=== PATIENT | female | born 1960 | race African-American/Black ===

== ENCOUNTER 2017-12-28 08:43 | Inpatient (IN) | payer BC ==
[2017-12-28] MEDS ORDERED: SODIUM CHLORIDE 1,000 ML IV STA ×2 (08:56→10:26)
--- NOTE | 2017-12-28 09:04 | PDOC ---
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 As per daughter her blood tests other than BS are normal. She reportedely became less responsive this a.m. EMS called ) - History of Present Illness Timing/Duration: unsure, getting worse Severity: severe Past History - Travel Traveled outside of the country in the last 30 days: No Close contact w/someone who was outside of country & ill: No - Past Medical History Allergies/Adverse Reactions: Allergies Allergy/AdvReac Type Severity Reaction Status Date / Time lactase [From Dairy Aid] Allergy Unknown Rash Verified 12/28/17 09:52 gluten Allergy SOB Verified 12/28/17 09:52 FRUIT Allergy Rash Uncoded 12/28/17 09:52 VEGATABLES Allergy Rash Uncoded 12/28/17 09:52 Home Medications: Ambulatory Orders Unobtainable 12/28/17 Anemia: No Asthma: No Cancer: No Cardiac Disorders: No CVA: No COPD: No CHF: No Dementia: No Diabetes: Yes (TYPE 1) Dialysis: No GI Disorders: No Disorders: No HTN: Yes Hypercholesterolemia: No Kidney Stones: No Liver Disease: No Seizures: No Thyroid Disease: No - Suicide/Smoking/Psychosocial Hx Smoking Status: No Smoking History: Never smoked Have you smoked in the past 12 months: No Number of Cigarettes Smoked Daily: 0 Cigars Per Day: 0 Hx Alcohol Use: No Drug/Substance Use Hx: No Substance Use Type: None Hx Substance Use Treatment: No Review of Systems - Review of Systems Able to Perform ROS?: No (patient too sick) Is the patient limited [place] Islander proficient: Yes Constitutional: Yes: Symptoms Reported, Malaise, Weakness Respiratory: Yes: SOB with Exertion ABD/GI: Yes: Symptoms Reported, Other (Soft , diffuesly tender, no rebound) Musculoskeletal: Yes: Muscle Weakness Integumentary: Yes: Other (reportedely local redness at Insulin shots sited ) Psychiatric: Yes: Depression Endocrine: Yes: See HPI Hematologic/Lymphatic: Yes: Easy Bruising All Other Systems: Reviewed and Negative *Physical Exam - Physical Exam General Appearance: Yes: Severe Distress, Thin HEENT: positive: ANDREY Neck: positive: Supple Respiratory/Chest: positive: Lungs Clear Cardiovascular: positive: Regular Rate, S1, S2, Tachycardia Gastrointestinal/Abdominal: positive: Tender, Soft Extremity: positive: Normal Capillary Refill Integumentary: positive: Normal Color Neurologic: positive: Respond to painful stimul Heart Score/ECG Review - Electrocardiogram EKG: Non specific repolarization disturbance - Age Age: 45-65 - Risk Factors Risk Factors Heart Score: Yes Hx Hypertension - ECG Intrepretation Rhythm: Regular Rhythm - ST and T Early Repolarization: No Non Specific ST-T Wave changes: No - ECG Impressions Tachycardia: Sinus Torsades nicholas Pointes: No WPW: No ED Treatment Course - LABORATORY CBC & Chemistry Diagram: 12/28/17 09:08 12/28/17 12:41 - Consult/PCP Case discussed with consulting physician: Itz Freeman Medical Decision Making - Critical Care Time Total Critical Care Time (minutes): 30 Critical Care Statement: The care of this patient involved high complexity decision making to prevent further life threatening deterioration of the patient 's condition and/or to evaluate & treat vital organ system(s) failure or risk of failure. - Medical Decision Making Patient seen immediately from arrival, assesed. tests ordered, iv started 12/28/17 09:[address] Freeman , accepted patient to ICU 12/28/17 11:23 12/28/17 15:21 Patient received iv fluids, iv Insulin drip, antibiotics Slowly her mental status inpton Transfered to ICU [facility] *DC/Admit/Observation/Transfer Diagnosis at time of Disposition: DKA (diabetic ketoacidoses) Qualifiers: Diabetes mellitus type: type 1 Diabetes mellitus complication detail: without coma Qualified Code(s): E10.10 - Type 1 diabetes mellitus with ketoacidosis without coma Sepsis Qualifiers: Sepsis type: sepsis due to unspecified organism Qualified Code(s): A41.9 - Sepsis, unspecified organism - Discharge Dispostion Condition at time of disposition: Critical Decision to Admit order: Yes - Referrals - Patient Instructions - Post Discharge Activity
[2017-12-28 09:27] LABS: HEMATOCRIT 47.1 % (32.4-45.2); HEMOGLOBIN 15.3 GM/dl (10.7-15.3); MCH 28.5 pg (25.7-33.7); MCHC 32.5 g/dl (32.0-36.0); MEAN PLT VOLUME 9.1 fl (7.5-11.1); PLATELET COUNT 207 K/MM3 (134-434); RBC 5.35 M/mm3 (3.60-5.2); RDW 13.8 % (11.6-15.6); WHITE BLOOD COUNT 20.6 K/mm3 (4.0-10.8)
[2017-12-28 09:32] LABS: URINE APPEARANCE Clear; URINE BILIRUBIN Negative (NEGATIVE); URINE GLUCOSE (UA) 2+ (NEGATIVE); URINE KETONE 4+ (NEGATIVE); URINE LEUK ESTERASE Negative (NEGATIVE); URINE NITRITE Negative (NEGATIVE); URINE PROTEIN 2+ (NEGATIVE); URINE UROBILINOGEN 0.2 (0.2-1.0)
[2017-12-28 09:33] LABS: URINE COLOR AMBER
[2017-12-28 09:36] LABS: ADD RBC MORPHOLOGY YES; ALBUMIN 4.2 g/dl (3.5-5.0); ALK PHOS 150 U/L (32-92); BILIRUBIN,TOTAL 0.6 mg/dl (0.2-1.0); BLOOD UREA NITROGEN 24 mg/dl (7-18); CHLORIDE 113 mmol/L (98-107); CREATININE 1.3 mg/dl (0.6-1.3); POTASSIUM 5.2 mmol/L (3.5-5.1); SGOT/AST 29 U/L (10-42); SGPT/ALT 23 U/L (10-40); SODIUM 148 mmol/L (136-145)
[2017-12-28 09:42] LABS: ANION GAP 31 (8-16); CO2 4 mmol/L (22-28)
[2017-12-28 09:44] LABS: GLUCOSE,RANDOM 566 mg/dl (74-106)
[2017-12-28] MEDS ORDERED: INSULIN REGULAR 100 UNITS in SODIUM CHLORIDE 99 ML IVPB SCH ×4 (10:30→18:45)
[2017-12-28] MEDS ORDERED: HEMOQUE TEST 1 EACH EACH ONE ×3 (10:55→15:29)
[2017-12-28 11:03] LABS: EPI CELLS FEW /HPF; URINE WBC 0-1 (0-5)
[2017-12-28 12:54] LABS: PLATELET ESTIMATE ADEQUATE
[2017-12-28 12:55] LABS: ALBUMIN 3.9 g/dl (3.5-5.0); ALK PHOS 147 U/L (32-92); BILIRUBIN,TOTAL 0.7 mg/dl (0.2-1.0); BLOOD UREA NITROGEN 25 mg/dl (7-18); CALCIUM 8.1 mg/dl (8.4-10.2); CHLORIDE 120 mmol/L (98-107); CREATININE 1.2 mg/dl (0.6-1.3); POTASSIUM 4.9 mmol/L (3.5-5.1); SGOT/AST 33 U/L (10-42); SGPT/ALT 25 U/L (10-40); SODIUM 151 mmol/L (136-145); TOT PROT 7.6 g/dl (6.4-8.3)
[2017-12-28 13:27] LABS: ANION GAP 28 (8-16); CO2 3 mmol/L (22-28); GLUCOSE,RANDOM 526 mg/dl (74-106)
[2017-12-28] MEDS ORDERED: SODIUM CHLORIDE 1,000 ML IV SCH (15:15)
[2017-12-28 16:43] LABS: ALBUMIN 3.6 g/dl (3.5-5.0); ALK PHOS 137 U/L (32-92); BILIRUBIN,TOTAL 0.9 mg/dl (0.2-1.0); BLOOD UREA NITROGEN 25 mg/dl (7-18); CALCIUM 8.4 mg/dl (8.4-10.2); CHLORIDE 124 mmol/L (98-107); CREATININE 1.2 mg/dl (0.6-1.3); POTASSIUM 4.1 mmol/L (3.5-5.1); SGOT/AST 34 U/L (10-42); SGPT/ALT 26 U/L (10-40); SODIUM 152 mmol/L (136-145); TOT PROT 7.1 g/dl (6.4-8.3)
[2017-12-28 16:47] LABS: ANION GAP 24 (8-16); CO2 4 mmol/L (22-28)
[2017-12-28 16:48] LABS: GLUCOSE,RANDOM 422 mg/dl (74-106)
[2017-12-28] MEDS ORDERED: PIPERACILLIN/TAZOB 3.375 GM 3.375 GM/50 ML BAG IVPB ONE (17:00)
--- NOTE | 2017-12-28 17:28 | HP ---
CHIEF COMPLAINT: AMS/metabolic encephalopathy secondary to sepsis and DKA PCP: not on staff HISTORY OF PRESENT ILLNESS: Patient is a transfer from [facility] for metabolic encephalopathy, severe sepsis and DKA. Patient is a 57 year old female with a significant past medical history of diabetes mellitus and DKA. She presents to [facility] from [facility] today via EMS for altered mental status, blood sugars >550s , leukocytosis @ 30.6 and severe sepsis. Patient's daughter states patient is compliant with her home insulin and takes it as prescribed. Family noted that patient became incoherent this morning and not answering questions appropriately with increased lethargy. Daughter states patient vomited twice this morning and c/o of nausea. Patient was taken to [facility] and transferred here for ICU admission. At [facility] she was incoherent and lethargic. Upon transfer to [place]patient mental status improved slightly and is able to answer some questions appropriately. Patient states that she has had no fevers, chills, no urinary symptoms, no coughing. She has been treated for a sinus congestion in the past, but none recently. In the ED she was found to be in DKA with a critically high glucose and anion gap of 31, + urine ketones and lactic acidosis >5. She was given IVF and started on an insulin drip. She is currently hypothermic and requires a yissel hugger (current temp is 92.3 rectal). Her blood and urine cultures are pending. Her UA is negative for leuk est, but has + protein, +ketones. She has given Levaquin in the [facility] ED and now will started on a broad spectrum antibiotics of Zosyn. ID has been consulted. ER course was notable for: (1) severe sepsis, WBC 30.6, lactic acid >5, hypothermia, tachycardia (2) DKA, insulin drip (3) Head CT negative, chest xray with clear lungs Recent Travel: denies PAST MEDICAL HISTORY: diabetes mellitus and DKA PAST SURGICAL HISTORY: Social History: Smoking: n/a Alcohol: n/a Drugs: n/a Family History: Allergies lactase [From Dairy Aid] Allergy (Unknown, Verified 12/28/17 09:52) Rash SOB, gluten Allergy (Verified 12/28/17 09:52) SOB FRUIT Allergy (Uncoded 12/28/17 09:52) Rash VEGATABLES Allergy (Uncoded 12/28/17 09:52) Rash SOB HOME MEDICATIONS: Home Medications Medication Instructions Recorded Unobtainable 12/28/17 PHYSICAL EXAMINATION Vital Signs - 24 hr 12/28/17 12/28/17 12/28/17 08:44 09:51 11:31 Temperature 98.3 F Pulse Rate 102 H Pulse Rate [ 101 H 105 H Apical] Respiratory 18 22 20 Rate Blood Pressure 132/60 Blood Pressure 155/68 141/70 [Right Arm] O2 Sat by Pulse 100 100 100 Oximetry (%) 12/28/17 12/28/17 12/28/17 12:07 12:42 13:34 Temperature Pulse Rate Pulse Rate [ 107 H 99 H 95 H Apical] Respiratory 26 H 22 22 Rate Blood Pressure Blood Pressure 134/64 124/54 115/61 [Right Arm] O2 Sat by Pulse 100 100 99 Oximetry (%) 12/28/17 12/28/17 12/28/17 16:13 16:25 16:52 Temperature 92.4 F L Pulse Rate Pulse Rate [ 97 H 93 H Apical] Respiratory 22 22 Rate Blood Pressure Blood Pressure 120/60 115/62 [Right Arm] O2 Sat by Pulse 97 97 Oximetry (%) GENERAL: lethargic HEAD: Normal with no signs of trauma. EYES: Pupils equal, round and reactive to light EARS, NOSE, THROAT: Ears normal, nares patent, oropharynx clear without exudates. Moist mucous membranes. NECK: Normal range of motion, supple without lymphadenopathy, JVD, or masses. LUNGS: Breath sounds equal, clear to auscultation bilaterally. No wheezes, and no crackles. No accessory muscle use. HEART: Regular rate and rhythm ABDOMEN: Soft, nontender, not distended, normoactive bowel sounds, no guarding, no rebound, no masses. No hepatomegaly or splenomegaly. MUSCULOSKELETAL: Normal range of motion at all joints. No bony deformities or tenderness. No CVA tenderness. UPPER EXTREMITIES: 2+ pulses, warm, well-perfused. No cyanosis. No clubbing. No peripheral edema. LOWER EXTREMITIES: 2+ pulses, warm, well-perfused. No calf tenderness. No peripheral edema. NEUROLOGICAL: garbled speech PSYCHIATRIC: lethargic, answers questions appropriately SKIN: Warm, dry, normal turgor, no rashes or lesions noted, normal capillary refill. Laboratory Results - last 24 hr 12/28/17 12/28/17 12/28/17 08:48 09:08 09:08 WBC 20.6 H RBC 5.35 H Hgb 15.3 Hct 47.1 H MCV 88.0 MCH 28.5 MCHC 32.5 RDW 13.8 Plt Count 207 MPV 9.1 Absolute Neuts (auto) 16.7 Neutrophils % No Result Required. Neutrophils % (Manual) 78.0 Band Neutrophils % 3.0 Lymphocytes % No Result Required. Lymphocytes % (Manual) 15.0 Monocytes % (Manual) 4 Platelet Estimate Adequate Sodium 148 H Potassium 5.2 H Chloride 113 H Carbon Dioxide 4 L D Anion Gap 31 H BUN 24 H Creatinine 1.3 Creat Clearance w eGFR 42.07 POC Glucometer > 400 Random Glucose 566 H* D Lactic Acid Calcium 9.0 Total Bilirubin 0.6 D AST 29 ALT 23 Alkaline Phosphatase 150 H Troponin I Total Protein 8.0 Albumin 4.2 Urine Color Urine Appearance Urine pH Ur Specific [place] Urine Protein Urine Glucose (UA) Urine Ketones Urine Blood Urine Nitrite Urine Bilirubin Urine Urobilinogen Ur Leukocyte Esterase Urine RBC Urine WBC Ur Epithelial Cells 12/28/17 12/28/17 12/28/17 09:08 09:08 09:08 WBC RBC Hgb Hct MCV MCH MCHC RDW Plt Count MPV Absolute Neuts (auto) Neutrophils % Neutrophils % (Manual) Band Neutrophils % Lymphocytes % Lymphocytes % (Manual) Monocytes % (Manual) Platelet Estimate Sodium Potassium Chloride Carbon Dioxide Anion Gap BUN Creatinine Creat Clearance w eGFR POC Glucometer Random Glucose Lactic Acid 5.4 H* Calcium Total Bilirubin AST ALT Alkaline Phosphatase Troponin I < 0.03 Total Protein Albumin Urine Color Ana Urine Appearance Clear Urine pH 5.0 Ur Specific [place] 1.025 Urine Protein 2+ H Urine Glucose (UA) 2+ H Urine Ketones 4+ H Urine Blood 2+ H Urine Nitrite Negative Urine Bilirubin Negative Urine Urobilinogen 0.2 Ur Leukocyte Esterase Negative Urine RBC 5-8 Urine WBC 0-1 Ur Epithelial Cells Few 12/28/17 12/28/17 12/28/17 10:59 12:09 12:09 WBC RBC Hgb Hct MCV MCH MCHC RDW Plt Count MPV Absolute Neuts (auto) Neutrophils % Neutrophils % (Manual) Band Neutrophils % Lymphocytes % Lymphocytes % (Manual) Monocytes % (Manual) Platelet Estimate Sodium Potassium Chloride Carbon Dioxide Anion Gap BUN Creatinine Creat Clearance w eGFR POC Glucometer > 400 Random Glucose 523 H* Lactic Acid 5.0 H* Calcium Total Bilirubin AST ALT Alkaline Phosphatase Troponin I Total Protein Albumin Urine Color Urine Appearance Urine pH Ur Specific [place] Urine Protein Urine Glucose (UA) Urine Ketones Urine Blood Urine Nitrite Urine Bilirubin Urine Urobilinogen Ur Leukocyte Esterase Urine RBC Urine WBC Ur Epithelial Cells 12/28/17 12/28/17 12/28/17 12:41 15:34 16:12 WBC RBC Hgb Hct MCV MCH MCHC RDW Plt Count MPV Absolute Neuts (auto) Neutrophils % Neutrophils % (Manual) Band Neutrophils % Lymphocytes % Lymphocytes % (Manual) Monocytes % (Manual) Platelet Estimate Sodium 151 H 152 H Potassium 4.9 4.1 Chloride 120 H 124 H Carbon Dioxide 3 L D 4 L D Anion Gap 28 H 24 H BUN 25 H 25 H Creatinine 1.2 1.2 Creat Clearance w eGFR 46.14 46.14 POC Glucometer > 400 Random Glucose 526 H* 422 H* Lactic Acid Calcium 8.1 L 8.4 Total Bilirubin 0.7 0.9 D AST 33 34 ALT 25 26 Alkaline Phosphatase 147 H 137 H Troponin I Total Protein 7.6 7.1 Albumin 3.9 3.6 Urine Color Urine Appearance Urine pH Ur Specific [place] Urine Protein Urine Glucose (UA) Urine Ketones Urine Blood Urine Nitrite Urine Bilirubin Urine Urobilinogen Ur Leukocyte Esterase Urine RBC Urine WBC Ur Epithelial Cells ASSESSMENT/PLAN: Patient is a 57 year old female with a significant past medical history of diabetes mellitus and DKA. She presents to [facility] from [facility] today via EMS for altered mental status, blood sugars >550s , leukocytosis @ 30.6 and severe sepsis. Patient's daughter states patient is compliant with her home insulin and takes it as prescribed. Family noted that patient became incoherent this morning and not answering questions appropriately with increased lethargy. Daughter states patient vomited twice this morning and c/o of nausea. Patient was taken to [facility] and transferred here for ICU admission. At [facility] she was incoherent and lethargic. Upon transfer to [facility],patient mental status improved slightly and is able to answer some questions appropriately. Patient states that she has had no fevers, chills, no urinary symptoms, no coughing. She has been treated for a sinus congestion in the past, but none recently. In the ED she was found to be in DKA with a critically high glucose and anion gap of 31, + urine ketones and lactic acidosis >5. She was given IVF and started on an insulin drip. She is currently hypothermic and requires a yissel hugger (current temp is 92.3 rectal). Her blood and urine cultures are pending. Her UA is negative for leuk est, but has + protein, +ketones. She has given Levaquin in the [facility] ED and now will started on a broad spectrum antibiotics of Zosyn. ID has been consulted. ID: Severe Sepsis, etiology unclear Blood and urine cultures pending. No obvious source of sepsis. WBC 30, lactic acid >5, hypothermia and tachycardia present. Given Levaquin in [facility]. Given Zosyn now per ID recommendations. Monitor vitals, currently on yissel hugger. Trend lactate q 4 hours until normal values. ID on board. Endocrine DKA Anion gap 31, +ketones, BGMs >500 with nausea/vomiting Given IVF, started on Insulin drip. IVF - 1/2 NS for now and add dextrose when FS is <250mg/dL. Serial BMPs, and aggressive repletion of Potassium. Transition to SQ when gap is closed and able to tolerate a PO diet Hmg a1c in a.m. Lipid panel in a.m. Neuro: Acute metabolic encephalopathy, likely secondary to severe sepsis and DKA On Zosyn, insulin drip. Head CT negative FEN 1/2 NS @ 100 monitor electrolytes, potassium repletion as needed NPO prophy: heparin full code Visit type - Emergency Visit Emergency Visit: Yes ED Registration Date: 12/28/17 Care time: The patient presented to the Emergency Department on the above date and was hospitalized for further evaluation of their emergent condition. - New Patient This patient is new to me today: Yes Date on this admission: 12/29/17 - Critical Care Critical Care patient: Yes Total Critical Care Time (in minutes): 60 Critical Care Statement: The care of this patient involved high complexity decision making to prevent further life threatening deterioration of the patient 's condition and/or to evaluate & treat vital organ system(s) failure or risk of failure. Hospitalist Screening - Colonoscopy Questionnaire Colonoscopy Questionnaire: Colonoscopy Questionnaire - Patient: 50 - 75 years old and never had a screening colonoscopy: Unknown History of colon or rectal polyps, or CA: Unknown History of IBD, Crohn's disease or UC: Unknown History of abdominal radiation therapy as a child: Unknown - Relative: 1 with colon or rectal CA, or polyps at age 60 or younger: Unknown Colon or rectal CA diagnosed at age 45 or younger: Unknown Multiple relatives with colon or rectal CA: Unknown - Outcome: Screening Result: Negative Screen
--- NOTE | 2017-12-28 18:10 | CON.ID ---
Consult Consult Specialty:: infectious Reason for Consultation:: sepsis,lactic acidosis - History of Present Illness History of Present Illness: 57 y/o woman w/ brittle IDDM who presents to the ED w/ AMS. As per patients daughter she was in her USOH until two days prior when she started w/ sinus congestion and some nausea. Daughter states that when she went to check on her this AM she was found to be extremely lethargic and incoherent. Daughter dialed 911 and patient was transported to [facility]. In ER she was found to have AMS, BGL >550s, leukocytosis @ 30.6, anion gap of 31, + urine ketones, and a lactic acidosis >5. She was given IVFs and started on an insulin drip. The pt denies any CP,PAREDES, SOB, abdominal pain , nausea or vomiting. the above history taken from the charts as the patient is confused and in now able to answer questions and confused patient received multiple boluses now in icu - History Source History Provided By: Medical Record Limitations to Obtaining History: Clinical Condition - Past Medical History Endocrine: Yes: Diabetes Mellitus - Alcohol/Substance Use Hx Alcohol Use: No - Smoking History Smoking history: Never smoked Have you smoked in the past 12 months: No Aproximately how many cigarettes per day: 0 Home Medications - Allergies Allergies/Adverse Reactions: Allergies Allergy/AdvReac Type Severity Reaction Status Date / Time lactase [From Dairy Aid] Allergy Unknown Rash Verified 12/28/17 09:52 gluten Allergy SOB Verified 12/28/17 09:52 FRUIT Allergy Rash Uncoded 12/28/17 09:52 VEGATABLES Allergy Rash Uncoded 12/28/17 09:52 - Home Medications Home Medications: Ambulatory Orders Unobtainable 12/28/17 Review of Systems Unable to obtain ROS, reason: unable Physical Exam Vital Signs: Vital Signs Temperature 92.2 F L 12/28/17 17:40 Pulse Rate 98 H 12/28/17 17:40 Respiratory Rate 20 12/28/17 17:40 Blood Pressure 118/66 12/28/17 17:40 O2 Sat by Pulse Oximetry (%) 97 12/28/17 16:52 Constitutional: Yes: Thin, Other Eyes: Yes: Conjunctiva Clear Cardiovascular: Yes: Regular Rate and Rhythm, Tachycardia Respiratory: Yes: Regular, Poor Air Entry, Rhonchi, Other (breathing through mouth) Gastrointestinal: Yes: Soft, Hypoactive Bowel Sounds Musculoskeletal: Yes: WNL Extremities: Yes: WNL Neurological: Yes: Confusion, Other Psychiatric: Yes: Other Labs: CBC, BMP 12/28/17 09:08 12/28/17 16:12 Imaging - Results Chest X-ray: Report Reviewed, Image Reviewed Cat Scan: Report Reviewed, Image Reviewed Assessment/Plan patient coming in with ams and dka currently in sepsis in icu and breathing through the mouth Problem List - Problems (1) DKA (diabetic ketoacidoses) (2) Sepsis 3 ams electrolyte abn lactic acidosis dehydration leukocytosis plan treatment of dka as per icu white tart patient on abx close watch on the patient hydration electrolyte mgmt monitor wbc rest as per the team await for all cx reports discussed with the family in great detail cc time 45 min
--- NOTE | 2017-12-28 18:24 | CONSULT ---
Consultation: REQUESTING PROVIDER: [facility] CONSULT REQUEST: We have been asked to medically evaluate this patient for DKA and need for ICU HISTORY OF PRESENT ILLNESS: 57 yo F with PMhx of brittle IDDM and DKA presents with one day history of AMS. As per patients daughter she was in her normal state of health until two days prior when she started with sinus congestion and some nausea. Daughter states that when she went to check on her this morning she was found to be extremely lethargic and incoherent. Her daughter called EMS and patient wqas transported to [facility] ER. In ER she was found to have altered mental status , blood sugars >550s, leukocytosis @ 30.6, anion gap of 31, + urine ketones and lactic acidosis >5.and severe sepsis. She was given IVF and started on an insulin drip. She has given Levaquin in the [facility] ED and now will started on a broad spectrum antibiotics of Zosyn. ID has been consulted. Denies CP,PAREDES, SOB, abdominal pain , nausea or vomiting. ER course was notable for: (1) severe sepsis, WBC 30.6, lactic acid >5, hypothermia, tachycardia (2) DKA, insulin drip (3) Head CT negative, chest xray with clear lungs Allergies:multiple food allergies. (severe) PMHx: IDDM and DKA PSx: none Social: never smoked, social ETOH, no drugs. Lives at home with daughter works and is completely independent. REVIEW OF SYSTEMS: CONSTITUTIONAL: generalized weakness, malaise, loss of appetite Absent: fever, chills, diaphoresis, , weight change HEENT: Absent: rhinorrhea, nasal congestion, throat pain, throat swelling, difficulty swallowing, mouth swelling, ear pain, eye pain, visual changes CARDIOVASCULAR: Absent: chest pain, syncope, palpitations, irregular heart rate, lightheadedness , peripheral edema RESPIRATORY: Absent: cough, shortness of breath, dyspnea with exertion, orthopnea, wheezing, stridor, hemoptysis GASTROINTESTINAL: Absent: abdominal pain, abdominal distension, nausea, vomiting, diarrhea, constipation, melena, hematochezia GENITOURINARY: Absent: dysuria, frequency, urgency, hesitancy, hematuria, flank pain, genital pain MUSCULOSKELETAL: Absent: myalgia, arthralgia, joint swelling, back pain, neck pain SKIN: Absent: rash, itching, pallor HEMATOLOGIC/IMMUNOLOGIC: Absent: easy bleeding, easy bruising, lymphadenopathy, frequent infections ENDOCRINE: Absent: unexplained weight gain, unexplained weight loss, heat intolerance, cold intolerance NEUROLOGIC: mental status changes Absent: headache, focal weakness or paresthesias, dizziness, unsteady gait, seizure, , bladder or bowel incontinence PSYCHIATRIC: Absent: anxiety, depression, suicidal or homicidal ideation, hallucinations. PHYSICAL EXAMINATION Vital Signs - 24 hr 12/28/17 12/28/17 12/28/17 08:44 09:51 11:31 Temperature 98.3 F Pulse Rate 102 H Pulse Rate [ 101 H 105 H Apical] Respiratory 18 22 20 Rate Blood Pressure 132/60 Blood Pressure 155/68 141/70 [Right Arm] O2 Sat by Pulse 100 100 100 Oximetry (%) 12/28/17 12/28/17 12/28/17 12:07 12:42 13:34 Temperature Pulse Rate Pulse Rate [ 107 H 99 H 95 H Apical] Respiratory 26 H 22 22 Rate Blood Pressure Blood Pressure 134/64 124/54 115/61 [Right Arm] O2 Sat by Pulse 100 100 99 Oximetry (%) 12/28/17 12/28/17 12/28/17 16:13 16:25 16:52 Temperature 92.4 F L Pulse Rate Pulse Rate [ 97 H 93 H Apical] Respiratory 22 22 Rate Blood Pressure Blood Pressure 120/60 115/62 [Right Arm] O2 Sat by Pulse 97 97 Oximetry (%) GENERAL: Lethargic but arousable HEAD: NC/AT EYES:PERRLA,EOMI EARS, NOSE, THROAT:Dry mucous membranes. NECK: no JVD or masses LUNGS:CTAB, NO wheezing or rales. HEART: RRR, NL S1S2 , no m/g/r ABDOMEN: Soft, NT/ND, NABS, no guarding, no rebound, no masses. No hepatomegaly or splenomegaly. MUSCULOSKELETAL: No CVA tenderness. LOWER EXTREMITIES: 2+ pulses, warm, well-perfused. No calf tenderness. No peripheral edema. NEUROLOGICAL: lethargic but follows simple commands. Laboratory Results - last 24 hr 12/28/17 12/28/17 12/28/17 08:48 09:08 09:08 WBC 20.6 H RBC 5.35 H Hgb 15.3 Hct 47.1 H MCV 88.0 MCH 28.5 MCHC 32.5 RDW 13.8 Plt Count 207 MPV 9.1 Absolute Neuts (auto) 16.7 Neutrophils % No Result Required. Neutrophils % (Manual) 78.0 Band Neutrophils % 3.0 Lymphocytes % No Result Required. Lymphocytes % (Manual) 15.0 Monocytes % (Manual) 4 Platelet Estimate Adequate Sodium 148 H Potassium 5.2 H Chloride 113 H Carbon Dioxide 4 L D Anion Gap 31 H BUN 24 H Creatinine 1.3 Creat Clearance w eGFR 42.07 POC Glucometer > 400 Random Glucose 566 H* D Lactic Acid Calcium 9.0 Total Bilirubin 0.6 D AST 29 ALT 23 Alkaline Phosphatase 150 H Troponin I Total Protein 8.0 Albumin 4.2 Urine Color Urine Appearance Urine pH Ur Specific [place] Urine Protein Urine Glucose (UA) Urine Ketones Urine Blood Urine Nitrite Urine Bilirubin Urine Urobilinogen Ur Leukocyte Esterase Urine RBC Urine WBC Ur Epithelial Cells 12/28/17 12/28/17 12/28/17 09:08 09:08 09:08 WBC RBC Hgb Hct MCV MCH MCHC RDW Plt Count MPV Absolute Neuts (auto) Neutrophils % Neutrophils % (Manual) Band Neutrophils % Lymphocytes % Lymphocytes % (Manual) Monocytes % (Manual) Platelet Estimate Sodium Potassium Chloride Carbon Dioxide Anion Gap BUN Creatinine Creat Clearance w eGFR POC Glucometer Random Glucose Lactic Acid 5.4 H* Calcium Total Bilirubin AST ALT Alkaline Phosphatase Troponin I < 0.03 Total Protein Albumin Urine Color Ana Urine Appearance Clear Urine pH 5.0 Ur Specific [place] 1.025 Urine Protein 2+ H Urine Glucose (UA) 2+ H Urine Ketones 4+ H Urine Blood 2+ H Urine Nitrite Negative Urine Bilirubin Negative Urine Urobilinogen 0.2 Ur Leukocyte Esterase Negative Urine RBC 5-8 Urine WBC 0-1 Ur Epithelial Cells Few 12/28/17 12/28/17 12/28/17 10:59 12:09 12:09 WBC RBC Hgb Hct MCV MCH MCHC RDW Plt Count MPV Absolute Neuts (auto) Neutrophils % Neutrophils % (Manual) Band Neutrophils % Lymphocytes % Lymphocytes % (Manual) Monocytes % (Manual) Platelet Estimate Sodium Potassium Chloride Carbon Dioxide Anion Gap BUN Creatinine Creat Clearance w eGFR POC Glucometer > 400 Random Glucose 523 H* Lactic Acid 5.0 H* Calcium Total Bilirubin AST ALT Alkaline Phosphatase Troponin I Total Protein Albumin Urine Color Urine Appearance Urine pH Ur Specific [place] Urine Protein Urine Glucose (UA) Urine Ketones Urine Blood Urine Nitrite Urine Bilirubin Urine Urobilinogen Ur Leukocyte Esterase Urine RBC Urine WBC Ur Epithelial Cells 12/28/17 12/28/17 12/28/17 12:41 15:34 16:12 WBC RBC Hgb Hct MCV MCH MCHC RDW Plt Count MPV Absolute Neuts (auto) Neutrophils % Neutrophils % (Manual) Band Neutrophils % Lymphocytes % Lymphocytes % (Manual) Monocytes % (Manual) Platelet Estimate Sodium 151 H 152 H Potassium 4.9 4.1 Chloride 120 H 124 H Carbon Dioxide 3 L D 4 L D Anion Gap 28 H 24 H BUN 25 H 25 H Creatinine 1.2 1.2 Creat Clearance w eGFR 46.14 46.14 POC Glucometer > 400 Random Glucose 526 H* 422 H* Lactic Acid Calcium 8.1 L 8.4 Total Bilirubin 0.7 0.9 D AST 33 34 ALT 25 26 Alkaline Phosphatase 147 H 137 H Troponin I Total Protein 7.6 7.1 Albumin 3.9 3.6 Urine Color Urine Appearance Urine pH Ur Specific [place] Urine Protein Urine Glucose (UA) Urine Ketones Urine Blood Urine Nitrite Urine Bilirubin Urine Urobilinogen Ur Leukocyte Esterase Urine RBC Urine WBC Ur Epithelial Cells Active Medications Generic Name Dose Route Start Last Admin Trade Name Freq PRN Reason Stop Dose Admin Insulin Human Regular 100 100 mls @ 6.35 mls/hr 12/28/17 11:15 12/28/17 11:12 units/ Sodium Chloride IVPB 0.1 units/kg/hr TITR LUCY 6.35 mls/hr Administration Protocol 0.1 UNITS/KG/HR Insulin Human Regular 100 100 mls @ 10 mls/hr 12/28/17 15:15 12/28/17 15:17 units/ Sodium Chloride IVPB 10 units/hr TITR LUCY 10 mls/hr Administration Protocol 10 UNITS/HR Sodium Chloride 1,000 mls @ 150 mls/hr 12/28/17 15:15 12/28/17 15:17 Normal Saline - IV 150 mls/hr [facility] Administration ASSESSMENT/PLAN: 57 yo F with PMhx of brittle IDDM and DKA presents with one day history of AMS admitted to ICU for DKA. Neuro: * Lethargic but arousable. * Neuro checks Qshift. * Pain control. CV: * BP and HR wnl * continuous cardiac monitoring. Pulm: * No respiratory distress. * Supplemental O2 PRN * maintain SpO2 >90% * Aspiration precautions. Endo: * DKA * Insulin drip until BG <200 then switch to SQ * IVF D5 1/2NS * On levamir 10 units at home * brittle diabetic -family states very sensitive to insulin. ID: * Severe sepsis with unknown source * CXR clear and head CT shows no acute bleed. * started on Zosyn * ID consult appreciated. FEN: * IVF 1/2 NS @100ml/hr * Na+=152, K+=4.1, bicarb 4L, AG 24 * NPO for now. When she can eat only give chicken, boiled eggs and avocado 2/2 severe food allergies. Dispo: We will continue to follow the patient ICU. Thank you for this consultative opportunity. Problem List - Problems (1) DKA (diabetic ketoacidoses) (2) Sepsis (3) DVT prophylaxis Visit type - Emergency Visit Emergency Visit: Yes ED Registration Date: 12/28/17 Care time: The patient presented to the Emergency Department on the above date and was hospitalized for further evaluation of their emergent condition. - New Patient This patient is new to me today: Yes Date on this admission: 12/28/17 - Critical Care Critical Care patient: Yes Total Critical Care Time (in minutes): 63 Critical Care Statement: The care of this patient involved high complexity decision making to prevent further life threatening deterioration of the patient 's condition and/or to evaluate & treat vital organ system(s) failure or risk of failure.
[2017-12-28] MEDS ORDERED: DEXTROSE 5%-WATER - 50 ML IVPB ONE (18:29)
[2017-12-28] MEDS ORDERED: PIPERACILLIN/TAZOBACTAM 3.375 GM VIAL IVPB ONE (18:29)
[2017-12-28] MEDS ORDERED: SODIUM CHLORIDE 0.45% 1,000 ML IV SCH (18:30)
[2017-12-28] MEDS ORDERED: PIPERACILLIN/TAZOB 3.375 GM 3.375 GM in DEXTROSE 5%-WATER - 50 ML IVPB ONE (18:30)
[2017-12-28 19:31] LABS: ALBUMIN 3.4 g/dl (3.4-5.0); BILIRUBIN,TOTAL 0.4 mg/dL (0.2-1.0); BLOOD UREA NITROGEN 28 mg/dL (7-18); CHLORIDE 128 mmol/L (98-107); CREATININE 1.2 mg/dL (0.55-1.02); POTASSIUM 3.9 mmol/L (3.5-5.1); SGOT/AST 34 U/L (15-37); SGPT/ALT 31 U/L (12-78); SODIUM 159 mmol/L (136-145); TOT PROT 7.5 g/dl (6.4-8.2)
[2017-12-28 19:32] LABS: ALK PHOS 154 U/L (45-117)
[2017-12-28 19:45] LABS: ANION GAP 26 (8-16); CO2 5 mmol/L (21-32)
[2017-12-28 19:46] LABS: GLUCOSE,RANDOM 324 mg/dL (74-106)
--- NOTE | 2017-12-28 20:54 | CONSULT ---
Consult Consult Specialty:: PULM/CCM Referred by:: Dr. Whittington Reason for Consultation:: DKA - History of Present Illness Chief Complaint: DKA History of Present Illness: Ms Storey is a 57 y/o woman w/ brittle IDDM who presents to the ED w/ AMS. As per patients daughter she was in her USOH until two days prior when she started w/ sinus congestion and some nausea. Daughter states that when she went to check on her this AM she was found to be extremely lethargic and incoherent. Daughter dialed 911 and patient was transported to [facility] ER. In ER she was found to have AMS, BGL >550s, leukocytosis @ 30.6, anion gap of 31, + urine ketones, and a lactic acidosis >5. She was given IVFs and started on an insulin drip. The pt denies any CP,PAREDES, SOB, abdominal pain , nausea or vomiting. 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, Seizure Cardio/Vascular: No: AFIB, HTN Pulmonary: No: Asthma, COPD ...: No Endocrine: Yes: Diabetes Mellitus - Alcohol/Substance Use Hx Alcohol Use: No - Smoking History Smoking history: Never smoked Have you smoked in the past 12 months: No Aproximately how many cigarettes per day: 0 Home Medications - Allergies Allergies/Adverse Reactions: Allergies Allergy/AdvReac Type Severity Reaction Status Date / Time lactase [From Dairy Aid] Allergy Unknown Rash Verified 12/28/17 09:52 gluten Allergy SOB Verified 12/28/17 09:52 FRUIT Allergy Rash Uncoded 12/28/17 09:52 VEGATABLES Allergy Rash Uncoded 12/28/17 09:52 - Home Medications Home Medications: Ambulatory Orders Unobtainable 12/28/17 Family Disease History - Family Disease History Family History: Unremarkable Review of Systems - Review of Systems Eyes: reports: No Symptoms HENT: reports: Ear Discharge, Toothache Neck: reports: No Symptoms Cardiovascular: reports: No Symptoms Respiratory: reports: No Symptoms Gastrointestinal: reports: No Symptoms, Nausea Genitourinary: reports: No Symptoms Breasts: reports: No Symptoms Reported Musculoskeletal: reports: No Symptoms Integumentary: reports: No Symptoms Neurological: reports: No Symptoms Endocrine: reports: No Symptoms Hematology/Lymphatic: reports: No Symptoms Psychiatric: reports: No Symptoms Physical Exam Vital Signs: Vital Signs Temperature 93 F L 12/28/17 19:25 Pulse Rate 98 H 12/28/17 19:25 Respiratory Rate 22 12/28/17 19:25 Blood Pressure 120/61 12/28/17 19:25 O2 Sat by Pulse Oximetry (%) 100 12/28/17 18:50 Intake & Output 12/26/17 12/27/17 12/28/17 12/29/17 23:59 23:59 23:59 23:59 Intake Total 2150 Output Total 1700 Balance 450 Weight 64.4 kg Constitutional: Yes: Well Nourished, No Distress, Calm Eyes: Yes: WNL, Conjunctiva Clear, EOM Intact HENT: Yes: WNL, Atraumatic, Normocephalic Neck: Yes: WNL, Supple, Trachea Midline Cardiovascular: Yes: WNL, Regular Rate and Rhythm Respiratory: Yes: WNL, CTA Bilaterally Gastrointestinal: Yes: WNL, Normal Bowel Sounds, Soft. No: Vomiting ...Rectal Exam: Yes: Deferred Renal/: Yes: WNL Breast(s): Yes: WNL Musculoskeletal: Yes: WNL Extremities: Yes: WNL Edema: No Peripheral Pulses WNL: Yes Integumentary: Yes: WNL Wound/Incision: Yes: Clean/Dry, Well Approximated Neurological: Yes: WNL, Alert, Oriented ...Motor Strength: WNL Psychiatric: Yes: WNL, Alert, Oriented Labs: CBC, BMP 12/28/17 09:08 12/28/17 18:45 Imaging - Results Chest X-ray: Image Reviewed (CXR: No acute pathology. No significant change since 12/25/2015.) Cat Scan: Image Reviewed ( NCHCT: Mild volume loss. No gross evidence of a focal intracranial lesion or hemorrhage.) EKG: Image Reviewed (12-LEAD EKG 12/28: S-Tach @ 100 w/o ect, bi-atrial enlargement, no ST or T-wave aberrations, QTc = 505ms, no acute process (My Read ).) Problem List - Problems (1) DKA (diabetic ketoacidoses) Code(s): E13.10 - OTH DIABETES MELLITUS WITH KETOACIDOSIS WITHOUT COMA Qualifiers: Diabetes mellitus type: type 1 Diabetes mellitus complication detail: without coma Qualified Code(s): E10.10 - Type 1 diabetes mellitus with ketoacidosis without coma Assessment/Plan ASSESSMENT: DKA PLAN: * NPO * Nebs * Supplemental O2 PRN * maintain SpO2 >90% * F/u Boucher Clxr * Zo * Aspiration precautions. * IS * Aggressive IVFs * FSs * Insulin gtt * Do NOT Turn off insulin gtt once Insulin gtt @ 1U/Hr start D5 1/2NS * F/u UOP * Trend BUN/Cr * Replete e-lytes prn * DVT ppx DGL, ACNP-BC [facility] ICU PULM/CCM Critical Care Time/MDM Note Total Critical Care Time: 38 Critical Care Statement: The care of this patient involved high complexity decision making to prevent further life threatening deterioration of the patient 's condition and/or to evaluate & treat vital organ system(s) failure or risk of failure.
[2017-12-28 22:03] LABS: ALBUMIN 3.3 g/dl (3.4-5.0); ALK PHOS 142 U/L (45-117); ANION GAP 24 (8-16); BILIRUBIN,TOTAL 0.5 mg/dL (0.2-1.0); BLOOD UREA NITROGEN 31 mg/dL (7-18); CALCIUM 8.4 mg/dL (8.5-10.1); CHLORIDE 128 mmol/L (98-107); CO2 6 mmol/L (21-32); CREATININE 1.4 mg/dL (0.55-1.02); GLUCOSE,RANDOM 248 mg/dL (74-106); POTASSIUM 3.9 mmol/L (3.5-5.1); SGOT/AST 31 U/L (15-37); SGPT/ALT 31 U/L (12-78); SODIUM 158 mmol/L (136-145); TOT PROT 7.3 g/dl (6.4-8.2)
[2017-12-28] MEDS: MUPIROCIN 2% TOPICAL OINTMENT FOR DECOLONIZATION NS SCH (22:23)
[2017-12-28] MEDS: CHLORHEXIDINE GLUCONATE 4% CLEANSER FOR DECOLONIZATION TP SCH (22:23)
[2017-12-28] MEDS: HEPARIN NA (PORCINE) 5,000 UNITS/ML 1ML VIAL SQ SCH (22:23)
[2017-12-28] MEDS ORDERED: ONDANSETRON 4 MG/2 ML VIAL ONE (22:29)
[2017-12-28] MEDS ORDERED: ONDANSETRON 4 MG/2 ML VIAL IVPB STA (22:58)
[2017-12-29] MEDS ORDERED: D5-1/2NS+20 MEQ KCL - 20 MEQ/1,000 ML INFUS.BAG IV SCH ×2 (00:30→11:25)
[2017-12-29 01:48] LABS: ALBUMIN 3.2 g/dl (3.4-5.0); ANION GAP 20 (8-16); BILIRUBIN,TOTAL 0.5 mg/dL (0.2-1.0); BLOOD UREA NITROGEN 33 mg/dL (7-18); CALCIUM 8.9 mg/dL (8.5-10.1); CHLORIDE 129 mmol/L (98-107); CO2 11 mmol/L (21-32); CREATININE 1.7 mg/dL (0.55-1.02); GLUCOSE,RANDOM 139 mg/dL (74-106); SGOT/AST 34 U/L (15-37); SGPT/ALT 29 U/L (12-78); TOT PROT 7.1 g/dl (6.4-8.2)
[2017-12-29 01:49] LABS: ALK PHOS 133 U/L (45-117)
[2017-12-29 01:59] LABS: SODIUM 160 mmol/L (136-145)
[2017-12-29] MEDS ORDERED: PIPERACILLIN/TAZOBACTAM 3.375 GM VIAL IVPB ONE ×3 (02:26→18:18)
[2017-12-29] MEDS ORDERED: DEXTROSE 5%-WATER - 50 ML IVPB ONE ×3 (02:27→18:18)
[2017-12-29] MEDS: PIPERACILLIN/TAZOB 3.375 GM 3.375 GM in DEXTROSE 5%-WATER - 50 ML IVPB SCH ×3 (02:29→18:29)
[2017-12-29] MEDS ORDERED: LACTATED RINGERS SOLUTION 1,000 ML/1,000 ML INFUS.BAG IV STA (05:33)
[2017-12-29 06:49] LABS: BASO % 0.2 % (0-2.0); EOS % 0.1 % (0-4.5); HEMATOCRIT 41.4 % (32.4-45.2); HEMOGLOBIN 13.5 GM/dL (10.7-15.3); LYMPH % 5.7 % (8-40); MCH 27.4 pg (25.7-33.7); MCHC 32.6 g/dl (32.0-36.0); MEAN CELL VOLUME 84.1 fl (80-96); MEAN PLT VOLUME 9.5 fl (7.5-11.1); MONO % 10.4 % (3.8-10.2); NEUT % 83.6 % (42.8-82.8); PLATELET COUNT 129 K/MM3 (134-434); RBC 4.92 M/mm3 (3.60-5.2); RDW 14.3 % (11.6-15.6); WHITE BLOOD COUNT 14.8 K/mm3 (4.0-10.0)
[2017-12-29] MEDS: HEPARIN NA (PORCINE) 5,000 UNITS/ML 1ML VIAL SQ SCH ×3 (06:51→22:10)
--- NOTE | 2017-12-29 08:55 | EKG ---
Test Reason : Blood Pressure : / mmHG Vent. Rate : 101 BPM Atrial Rate : 101 BPM P-R Int : 164 ms QRS Dur : 082 ms QT Int : 390 ms P-R-T Axes : 071 059 036 degrees QTc Int : 505 ms SINUS TACHYCARDIA BIATRIAL ENLARGEMENT ABNORMAL ECG WHEN COMPARED WITH ECG OF 15-SEP-2013 00:51, NO SIGNIFICANT CHANGE WAS FOUND Confirmed by FRANCISCO GIRALDO MD ([id number]) on 12/29/2017 8:55:01 AM Referred By: ALY Confirmed By:FRANCISCO GIRALDO MD
--- NOTE | 2017-12-29 09:41 | CONSULT ---
Consult Consult Specialty:: Endocrinology Referred by:: Roxanna MIMS Reason for Consultation:: DKA - History of Present Illness Chief Complaint: AMS History of Present Illness: This is a 57 year old female with history of DM since 2013 on Insulin since then who is transferred from [facility] today via EMS for altered mental status, blood sugars >550s, DKA, leukocytosis @ 30.6 and severe sepsis. Pt was treated with IV hyration, IV Insulin with improvement in symptoms. Pt currently awake, alert. She has been sick for more than a week since she ate salad with beans. Last dose of Levemir on Monday morning. Takes only Levemir for treatment of diabetes. Says she can't tolerate oral antidiabetic agents. Fs at home has been in the 200 to 300s. No visual smptoms. No paresthesia of feet. Pt says this is her third episode of DKA. 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, Seizure Cardio/Vascular: No: AFIB, HTN Pulmonary: No: Asthma, COPD ...: No Endocrine: Yes: Diabetes Mellitus - Alcohol/Substance Use Hx Alcohol Use: No - Smoking History Smoking history: Never smoked Have you smoked in the past 12 months: No Aproximately how many cigarettes per day: 0 Home Medications - Allergies Allergies/Adverse Reactions: Allergies Allergy/AdvReac Type Severity Reaction Status Date / Time lactase [From Dairy Aid] Allergy Unknown Rash Verified 12/28/17 09:52 gluten Allergy SOB Verified 12/28/17 09:52 FRUIT Allergy Rash Uncoded 12/28/17 09:52 VEGATABLES Allergy Rash Uncoded 12/28/17 09:52 - Home Medications Home Medications: Ambulatory Orders Asea Redox 60 ml PO BID 12/30/17 Insulin (Levemir) [Levemir Vial] 30 unit SQ AM 12/30/17 [place]-3 12/30/17 Opti-Metals Detox 1 dropper SL BID 12/30/17 Virex 1 dropper SL BID 12/30/17 Family Disease History - Family Disease History Other Family History: No family h/o DM Review of Systems - Review of Systems Constitutional: reports: Malaise Eyes: reports: No Symptoms HENT: reports: No Symptoms Neck: reports: No Symptoms Cardiovascular: reports: No Symptoms Respiratory: reports: No Symptoms Gastrointestinal: reports: No Symptoms Genitourinary: reports: No Symptoms Musculoskeletal: reports: No Symptoms Neurological: reports: No Symptoms Endocrine: reports: No Symptoms Physical Exam Vital Signs: Vital Signs Temperature 98.9 F 12/29/17 05:00 Pulse Rate 97 H 12/29/17 08:00 Respiratory Rate 19 12/29/17 08:00 Blood Pressure 142/69 12/29/17 08:00 O2 Sat by Pulse Oximetry (%) 100 12/28/17 20:48 Constitutional: Yes: No Distress, Calm Eyes: Yes: Conjunctiva Clear, EOM Intact HENT: Yes: Atraumatic, Normocephalic Neck: Yes: Supple, Trachea Midline Cardiovascular: Yes: Regular Rate and Rhythm Respiratory: Yes: Regular, CTA Bilaterally Gastrointestinal: Yes: Normal Bowel Sounds, Soft Musculoskeletal: Yes: WNL Extremities: Yes: WNL Edema: No Neurological: Yes: Alert, Oriented Labs: CBC, BMP 12/29/17 05:30 Assessment/Plan AP: DM DKA Hypernatremia WINTER IV hydration Insulin drip to maintain FS 120 to 180 Insulin drip to be continued till Acidosis resolves Increase D5 rate if blood sugar drops to <120 CMP Q4 hrs Electrolyte replacement as necessary.
[2017-12-29] MEDS: MUPIROCIN 2% TOPICAL OINTMENT FOR DECOLONIZATION NS SCH ×2 (10:39→22:10)
--- NOTE | 2017-12-29 11:52 | PN ---
Teaching Attending Note Name of Resident: Johnathon Jordan ATTENDING PHYSICIAN STATEMENT I saw and evaluated the patient. I reviewed the resident's note and discussed the case with the resident. I agree with the resident's findings and plan as documented. SUBJECTIVE: Patient seen and examined in the ICU. Awake and alert. Reports feeling much better. Remains on IV Insulin drip. Labs are pending. Intake & Output 12/26/17 12/27/17 12/28/17 12/29/17 23:59 23:59 23:59 23:59 Intake Total 2150 2177 Output Total 1700 1800 Balance 450 377 Weight 141 lb 15.643 oz 141 lb 15.643 oz Last Vital Signs Temp Pulse Resp BP Pulse Ox 98.7 F 96 H 16 135/73 100 12/29/17 10:00 12/29/17 10:00 12/29/17 10:00 12/29/17 10:00 12/29/17 09:00 Active Medications Chlorhexidine Gluconate (Hibiclens For Decolonization -) 1 applic TP HS LUCY Last Admin: 12/28/17 22:23 Dose: 1 applic Heparin Sodium (Porcine) (Heparin -) 5,000 unit SQ TID LUCY Last Admin: 12/29/17 06:51 Dose: 5,000 unit Piperacillin Sod/Tazobactam (Sod 3.375 gm/ Dextrose) 50 mls @ 100 mls/hr IVPB Q8H-IV LUCY; Protocol Last Admin: 12/29/17 10:39 Dose: 100 mls/hr Insulin Human Regular 100 (units/ Sodium Chloride) 100 mls @ 6.44 mls/hr IVPB TITR LUCY; Protocol Last Titration: 12/29/17 10:59 Dose: 0.01 units/kg/hr, 1 mls/hr Potassium Chloride/Dextrose/Sod Cl (D5-1/2ns+20 Meq Kcl -) 20 meq in 1,000 mls @ 125 mls/hr IV ASDIR LUCY Last Admin: 12/29/17 11:33 Dose: 125 mls/hr Mupirocin (Bactroban Ointment (For Decolonization) -) 1 applic NS BID LUCY Stop: 01/02/18 21:59 Last Admin: 12/29/17 10:39 Dose: 1 applic GENERAL: Awake and alert HEAD: NC/AT EYES:PERRLA,EOMI EARS, NOSE, THROAT:Dry mucous membranes. NECK: no JVD or masses LUNGS:Clear HEART: RRR, NL S1S2 ABDOMEN: Soft, NT/ND, (+) BS, no guarding, no rebound, no masses. No hepatomegaly or splenomegaly. MUSCULOSKELETAL: No CVA tenderness. LOWER EXTREMITIES: 2+ pulses, warm, well-perfused. No calf tenderness. No peripheral edema. NEUROLOGICAL: Non-focal Laboratory Results - last 24 hr 12/28/17 12/28/17 12/28/17 09:08 09:08 10:59 WBC RBC Hgb Hct MCV MCH MCHC RDW Plt Count MPV Absolute Neuts (auto) Neutrophils % Neutrophils % (Manual) 78.0 Band Neutrophils % 3.0 Lymphocytes % Lymphocytes % (Manual) 15.0 Monocytes % Monocytes % (Manual) 4 Eosinophils % Basophils % Nucleated RBC % Platelet Estimate Adequate Sodium Potassium Chloride Carbon Dioxide Anion Gap BUN Creatinine Creat Clearance w eGFR POC Glucometer > 400 Random Glucose Hemoglobin A1c % Lactic Acid 5.4 H* Calcium Magnesium Total Bilirubin AST ALT Alkaline Phosphatase Total Protein Albumin Acetone, Qual 12/28/17 12/28/17 12/28/17 12:09 12:09 12:41 WBC RBC Hgb Hct MCV MCH MCHC RDW Plt Count MPV Absolute Neuts (auto) Neutrophils % Neutrophils % (Manual) Band Neutrophils % Lymphocytes % Lymphocytes % (Manual) Monocytes % Monocytes % (Manual) Eosinophils % Basophils % Nucleated RBC % Platelet Estimate Sodium 151 H Potassium 4.9 Chloride 120 H Carbon Dioxide 3 L D Anion Gap 28 H BUN 25 H Creatinine 1.2 Creat Clearance w eGFR 46.14 POC Glucometer Random Glucose 523 H* 526 H* Hemoglobin A1c % Lactic Acid 5.0 H* Calcium 8.1 L Magnesium Total Bilirubin 0.7 AST 33 ALT 25 Alkaline Phosphatase 147 H Total Protein 7.6 Albumin 3.9 Acetone, Qual 12/28/17 12/28/17 12/28/17 15:34 16:12 16:12 WBC RBC Hgb Hct MCV MCH MCHC RDW Plt Count MPV Absolute Neuts (auto) Neutrophils % Neutrophils % (Manual) Band Neutrophils % Lymphocytes % Lymphocytes % (Manual) Monocytes % Monocytes % (Manual) Eosinophils % Basophils % Nucleated RBC % Platelet Estimate Sodium 152 H Potassium 4.1 Chloride 124 H Carbon Dioxide 4 L D Anion Gap 24 H BUN 25 H Creatinine 1.2 Creat Clearance w eGFR 46.14 POC Glucometer > 400 Random Glucose 422 H* Hemoglobin A1c % Lactic Acid 3.2 H* Calcium 8.4 Magnesium Total Bilirubin 0.9 D AST 34 ALT 26 Alkaline Phosphatase 137 H Total Protein 7.1 Albumin 3.6 Acetone, Qual 12/28/17 12/28/17 12/28/17 18:45 21:15 21:25 WBC RBC Hgb Hct MCV MCH MCHC RDW Plt Count MPV Absolute Neuts (auto) Neutrophils % Neutrophils % (Manual) Band Neutrophils % Lymphocytes % Lymphocytes % (Manual) Monocytes % Monocytes % (Manual) Eosinophils % Basophils % Nucleated RBC % Platelet Estimate Sodium 159 H 158 H Potassium 3.9 3.9 Chloride 128 H 128 H Carbon Dioxide 5 L 6 L Anion Gap 26 H 24 H BUN 28 H 31 H Creatinine 1.2 H 1.4 H Creat Clearance w eGFR 46.14 38.62 POC Glucometer Random Glucose 324 H* 248 H Hemoglobin A1c % Lactic Acid 1.8 Calcium 8.0 L 8.4 L Magnesium Total Bilirubin 0.4 D 0.5 D AST 34 31 ALT 31 31 Alkaline Phosphatase 154 H 142 H Total Protein 7.5 7.3 Albumin 3.4 3.3 L Acetone, Qual 12/29/17 12/29/17 12/29/17 01:00 05:30 08:45 WBC 14.8 H D RBC 4.92 Hgb 13.5 D Hct 41.4 D MCV 84.1 MCH 27.4 MCHC 32.6 RDW 14.3 Plt Count 129 L MPV 9.5 Absolute Neuts (auto) 12.4 Neutrophils % 83.6 H D Neutrophils % (Manual) Band Neutrophils % Lymphocytes % 5.7 L D Lymphocytes % (Manual) Monocytes % 10.4 H Monocytes % (Manual) Eosinophils % 0.1 Basophils % 0.2 Nucleated RBC % 0 Platelet Estimate Sodium 160 H Cancelled Potassium 4.0 Cancelled Chloride 129 H Cancelled Carbon Dioxide 11 L Cancelled Anion Gap 20 H Cancelled BUN 33 H Cancelled Creatinine 1.7 H Cancelled Creat Clearance w eGFR 30.87 Cancelled POC Glucometer Random Glucose 139 H Cancelled Hemoglobin A1c % Lactic Acid Calcium 8.9 Cancelled Magnesium Cancelled Total Bilirubin 0.5 Cancelled AST 34 Cancelled ALT 29 Cancelled Alkaline Phosphatase 133 H Cancelled Total Protein 7.1 Cancelled Albumin 3.2 L Cancelled Acetone, Qual 12/29/17 12/29/17 08:45 08:45 WBC RBC Hgb Hct MCV MCH MCHC RDW Plt Count MPV Absolute Neuts (auto) Neutrophils % Neutrophils % (Manual) Band Neutrophils % Lymphocytes % Lymphocytes % (Manual) Monocytes % Monocytes % (Manual) Eosinophils % Basophils % Nucleated RBC % Platelet Estimate Sodium Potassium Chloride Carbon Dioxide Anion Gap BUN Creatinine Creat Clearance w eGFR POC Glucometer Random Glucose Hemoglobin A1c % 12.5 H Lactic Acid Calcium Magnesium Total Bilirubin AST ALT Alkaline Phosphatase Total Protein Albumin Acetone, Qual Positive moderate 2+ H Problem List - Problems (1) DKA (diabetic ketoacidoses) (2) Sepsis (3) DVT prophylaxis ASSESSMENT/PLAN: DKA WINTER Resolvin AMS R/O Sepsis IDDM IV Insulin drip per Endocrine Renal Evaluation Strict I & O O2 as needed ABX per ID Follow cultures Continue to volume resuscitate ICU monitoring until off IV Insulin drip Dr Freeman Critical care time spent in reviewing chart, evaluating patient and formulating plan - 36 minutes.
[2017-12-29 11:56] LABS: ALBUMIN 3.2 g/dl (3.4-5.0); ANION GAP 18 (8-16); BILIRUBIN,TOTAL 0.4 mg/dL (0.2-1.0); BLOOD UREA NITROGEN 33 mg/dL (7-18); CALCIUM 9.1 mg/dL (8.5-10.1); CHLORIDE 133 mmol/L (98-107); CO2 10 mmol/L (21-32); CREATININE 2.1 mg/dL (0.55-1.02); GLUCOSE,RANDOM 211 mg/dL (74-106); MAGNESIUM 2.3 mg/dL (1.8-2.4); POTASSIUM 4.3 mmol/L (3.5-5.1); SGOT/AST 31 U/L (15-37); TOT PROT 7.1 g/dl (6.4-8.2)
[2017-12-29 11:59] LABS: ALK PHOS 133 U/L (45-117); SGPT/ALT 29 U/L (12-78)
[2017-12-29 12:06] LABS: SODIUM 161 mmol/L (136-145)
[2017-12-29 12:07] LABS: PHOSPHOROUS 0.8 mg/dL (2.5-4.9)
--- NOTE | 2017-12-29 12:16 | PN ---
Physical Exam: SUBJECTIVE: Patient seen and examined. says she feels much better today compared to yesterday. On Insulin drip 1U/hour Fu pending labs. OBJECTIVE: Vital Signs Period Temp Pulse Resp BP Sys/Mendiola Pulse Ox Last 24 Hr 92.2 F-99.1 F 93-107 16-28 115-142/54-80 97-100 GENERAL: The patient is awake, alert, and fully oriented, in no acute distress. EYES: PERRL, extraocular movements intact, sclera anicteric ENT:oropharynx clear without exudates, dry mucous membranes. NECK: supple. LUNGS: Breath sounds equal, clear to auscultation bilaterally HEART: Regular rate and rhythm, S1, S2 without murmur, rub or gallop. ABDOMEN: Soft, nontender, nondistended, normoactive bowel sounds EXTREMITIES: 2+ pulses, no edema. NEUROLOGICAL: Cranial nerves II through XII grossly intact PSYCH: Normal mood, normal affect. Laboratory Results - last 24 hr 12/28/17 12/28/17 12/28/17 09:08 10:59 12:09 WBC RBC Hgb Hct MCV MCH MCHC RDW Plt Count MPV Absolute Neuts (auto) Neutrophils % Neutrophils % (Manual) 78.0 Band Neutrophils % 3.0 Lymphocytes % Lymphocytes % (Manual) 15.0 Monocytes % Monocytes % (Manual) 4 Eosinophils % Basophils % Nucleated RBC % Platelet Estimate Adequate Sodium Potassium Chloride Carbon Dioxide Anion Gap BUN Creatinine Creat Clearance w eGFR POC Glucometer > 400 Random Glucose Hemoglobin A1c % Lactic Acid 5.0 H* Calcium Magnesium Total Bilirubin AST ALT Alkaline Phosphatase Total Protein Albumin Acetone, Qual 12/28/17 12/28/17 12/28/17 12:09 12:41 15:34 WBC RBC Hgb Hct MCV MCH MCHC RDW Plt Count MPV Absolute Neuts (auto) Neutrophils % Neutrophils % (Manual) Band Neutrophils % Lymphocytes % Lymphocytes % (Manual) Monocytes % Monocytes % (Manual) Eosinophils % Basophils % Nucleated RBC % Platelet Estimate Sodium 151 H Potassium 4.9 Chloride 120 H Carbon Dioxide 3 L D Anion Gap 28 H BUN 25 H Creatinine 1.2 Creat Clearance w eGFR 46.14 POC Glucometer > 400 Random Glucose 523 H* 526 H* Hemoglobin A1c % Lactic Acid Calcium 8.1 L Magnesium Total Bilirubin 0.7 AST 33 ALT 25 Alkaline Phosphatase 147 H Total Protein 7.6 Albumin 3.9 Acetone, Qual 12/28/17 12/28/17 12/28/17 16:12 16:12 18:45 WBC RBC Hgb Hct MCV MCH MCHC RDW Plt Count MPV Absolute Neuts (auto) Neutrophils % Neutrophils % (Manual) Band Neutrophils % Lymphocytes % Lymphocytes % (Manual) Monocytes % Monocytes % (Manual) Eosinophils % Basophils % Nucleated RBC % Platelet Estimate Sodium 152 H 159 H Potassium 4.1 3.9 Chloride 124 H 128 H Carbon Dioxide 4 L D 5 L Anion Gap 24 H 26 H BUN 25 H 28 H Creatinine 1.2 1.2 H Creat Clearance w eGFR 46.14 46.14 POC Glucometer Random Glucose 422 H* 324 H* Hemoglobin A1c % Lactic Acid 3.2 H* Calcium 8.4 8.0 L Magnesium Total Bilirubin 0.9 D 0.4 D AST 34 34 ALT 26 31 Alkaline Phosphatase 137 H 154 H Total Protein 7.1 7.5 Albumin 3.6 3.4 Acetone, Qual 12/28/17 12/28/17 12/29/17 21:15 21:25 01:00 WBC RBC Hgb Hct MCV MCH MCHC RDW Plt Count MPV Absolute Neuts (auto) Neutrophils % Neutrophils % (Manual) Band Neutrophils % Lymphocytes % Lymphocytes % (Manual) Monocytes % Monocytes % (Manual) Eosinophils % Basophils % Nucleated RBC % Platelet Estimate Sodium 158 H 160 H Potassium 3.9 4.0 Chloride 128 H 129 H Carbon Dioxide 6 L 11 L Anion Gap 24 H 20 H BUN 31 H 33 H Creatinine 1.4 H 1.7 H Creat Clearance w eGFR 38.62 30.87 POC Glucometer Random Glucose 248 H 139 H Hemoglobin A1c % Lactic Acid 1.8 Calcium 8.4 L 8.9 Magnesium Total Bilirubin 0.5 D 0.5 AST 31 34 ALT 31 29 Alkaline Phosphatase 142 H 133 H Total Protein 7.3 7.1 Albumin 3.3 L 3.2 L Acetone, Qual 12/29/17 12/29/17 12/29/17 05:30 08:45 08:45 WBC 14.8 H D RBC 4.92 Hgb 13.5 D Hct 41.4 D MCV 84.1 MCH 27.4 MCHC 32.6 RDW 14.3 Plt Count 129 L MPV 9.5 Absolute Neuts (auto) 12.4 Neutrophils % 83.6 H D Neutrophils % (Manual) Band Neutrophils % Lymphocytes % 5.7 L D Lymphocytes % (Manual) Monocytes % 10.4 H Monocytes % (Manual) Eosinophils % 0.1 Basophils % 0.2 Nucleated RBC % 0 Platelet Estimate Sodium Cancelled Potassium Cancelled Chloride Cancelled Carbon Dioxide Cancelled Anion Gap Cancelled BUN Cancelled Creatinine Cancelled Creat Clearance w eGFR Cancelled POC Glucometer Random Glucose Cancelled Hemoglobin A1c % Lactic Acid Calcium Cancelled Magnesium Cancelled Total Bilirubin Cancelled AST Cancelled ALT Cancelled Alkaline Phosphatase Cancelled Total Protein Cancelled Albumin Cancelled Acetone, Qual Positive moderate 2+ H 12/29/17 08:45 WBC RBC Hgb Hct MCV MCH MCHC RDW Plt Count MPV Absolute Neuts (auto) Neutrophils % Neutrophils % (Manual) Band Neutrophils % Lymphocytes % Lymphocytes % (Manual) Monocytes % Monocytes % (Manual) Eosinophils % Basophils % Nucleated RBC % Platelet Estimate Sodium Potassium Chloride Carbon Dioxide Anion Gap BUN Creatinine Creat Clearance w eGFR POC Glucometer Random Glucose Hemoglobin A1c % 12.5 H Lactic Acid Calcium Magnesium Total Bilirubin AST ALT Alkaline Phosphatase Total Protein Albumin Acetone, Qual Active Medications Generic Name Dose Route Start Last Admin Trade Name Freq PRN Reason Stop Dose Admin Chlorhexidine Gluconate 1 applic 12/28/17 22:00 12/28/17 22:23 Hibiclens For Decolonization - TP 1 applic HS LUCY Administration Heparin Sodium (Porcine) 5,000 unit 12/28/17 22:00 12/29/17 06:51 Heparin - SQ 5,000 unit TID LUCY Administration Piperacillin Sod/Tazobactam 50 mls @ 100 mls/hr 12/29/17 02:00 12/29/17 10:39 Sod 3.375 gm/ Dextrose IVPB 100 mls/hr Q8H-IV LUCY Administration Protocol Insulin Human Regular 100 100 mls @ 6.44 mls/hr 12/28/17 18:45 12/29/17 10:59 units/ Sodium Chloride IVPB 0.01 units/kg/hr TITR LUCY 1 mls/hr Titration Protocol 0.1 UNITS/KG/HR Potassium Chloride/Dextrose/Sod Cl 20 meq in 1,000 mls @ 125 mls/hr 12/29/17 11:25 12/29/17 11:33 D5-1/2ns+20 Meq Kcl - IV 125 mls/hr ASDIR LUCY Administration Mupirocin 1 applic 12/28/17 22:00 12/29/17 10:39 Bactroban Ointment (For Decolonization) - NS 01/02/18 21:59 1 applic BID LUCY Administration ASSESSMENT/PLAN: ENDOCRINE #DKA -AG 20, trending down -Pending labs -Insulin drip 1U/hour -stop drip when Gap closes and start Insulin sq -D5 1/2 NS @ 125ml/hour -Hgb A1c 12.5 -Follow endocrine reccs #ARF -worsening renal function -cr now 2.1, 1.2 on admission -nephro consulted -avoid nephrotoxins FEN IV fluids D5 1/2 NS @ 125 monitor lytes and replete as needed NPO Ppx Scds Cont. ICU monitoring Visit type - Emergency Visit Emergency Visit: Yes ED Registration Date: 12/28/17 Care time: The patient presented to the Emergency Department on the above date and was hospitalized for further evaluation of their emergent condition. - New Patient This patient is new to me today: Yes Date on this admission: 12/29/17 - Critical Care Critical Care patient: Yes Total Critical Care Time (in minutes): 40 Critical Care Statement: The care of this patient involved high complexity decision making to prevent further life threatening deterioration of the patient 's condition and/or to evaluate & treat vital organ system(s) failure or risk of failure.
[2017-12-29 12:29] LABS: CHOLESTEROL 160 mg/dL (50-200); HDL CHOLESTEROL 68 mg/dL (40-60)
[2017-12-29 12:39] LABS: TRIGLYCERIDES 34 mg/dL (35-160)
[2017-12-29] MEDS ORDERED: DEXTROSE 5%-0.2% SALINE - 1,000 ML IV SCH (14:00)
[2017-12-29] MEDS ORDERED: INSULIN REGULAR 100 UNITS in SODIUM CHLORIDE 99 ML IVPB SCH ×2 (14:00→14:13)
[2017-12-29] MEDS ORDERED: DEXTROSE 5%-WATER - 1,000 ML IV SCH (14:15)
[2017-12-29] MEDS: POTASSIUM PHOSPHATE 30 MM in DEXTROSE 5%-WATER - 250 ML IVPB SCH ×2 (14:28→18:29)
--- NOTE | 2017-12-29 15:50 | CONSULT ---
Consult Consult Specialty:: Nephrology Reason for Consultation:: hypernatremia and WINTER - History of Present Illness Chief Complaint: change in mental status History of Present Illness: Pt is a 57 year old female with pmhx of DM who presents presents to the ER with change in mental status. She was found to be in DKA and admitted for treatment. She is now awake and able to give history. She has had DKA in the past. She takes insulin at home and says that her blood sugars had been over 400. She also says that she has not been eating or drinking much. I was called to evaluate her for hypernatremia and WINTER. Her renal function has been worsening since admission. She is making urine and she has been getting fluids. She was also found to have hypernatremia and her sodium is higher today. She denies shortness of breath or palpitations. She is also being worked up for sepsis. She denies nsaid use. - History Source History Provided By: Patient, Medical Record - Past Medical History ...: No Endocrine: Yes: Diabetes Mellitus - Alcohol/Substance Use Hx Alcohol Use: No - Smoking History Smoking history: Never smoked Have you smoked in the past 12 months: No Aproximately how many cigarettes per day: 0 Home Medications - Allergies Allergies/Adverse Reactions: Allergies Allergy/AdvReac Type Severity Reaction Status Date / Time lactase [From Dairy Aid] Allergy Unknown Rash Verified 12/28/17 09:52 gluten Allergy SOB Verified 12/28/17 09:52 FRUIT Allergy Rash Uncoded 12/28/17 09:52 VEGATABLES Allergy Rash Uncoded 12/28/17 09:52 - Home Medications Home Medications: Ambulatory Orders Unobtainable 12/28/17 Family Disease History - Family Disease History Family History: Denies Other Family History: No family h/o DM Review of Systems - Review of Systems Constitutional: reports: Chills, Malaise Eyes: reports: No Symptoms HENT: reports: No Symptoms Neck: reports: No Symptoms Cardiovascular: reports: No Symptoms Respiratory: reports: No Symptoms Gastrointestinal: reports: No Symptoms Genitourinary: reports: No Symptoms Musculoskeletal: reports: No Symptoms Integumentary: reports: No Symptoms Neurological: reports: Change in LOC Endocrine: reports: No Symptoms Hematology/Lymphatic: reports: No Symptoms Psychiatric: reports: No Symptoms Physical Exam Vital Signs: Vital Signs Temperature 98.9 F 12/29/17 12:00 Pulse Rate 93 H 12/29/17 12:00 Respiratory Rate 15 12/29/17 12:00 Blood Pressure 136/69 12/29/17 12:00 O2 Sat by Pulse Oximetry (%) 100 12/29/17 09:00 Constitutional: Yes: Calm Eyes: Yes: Conjunctiva Clear HENT: Yes: Atraumatic Neck: Yes: Supple Cardiovascular: Yes: S1, S2 Respiratory: Yes: CTA Bilaterally Gastrointestinal: Yes: Normal Bowel Sounds, Soft Renal/: Yes: Brantley Present Musculoskeletal: Yes: WNL Edema: No Neurological: Yes: Oriented Psychiatric: Yes: Oriented Labs: CBC, BMP 12/29/17 05:30 12/29/17 08:45 Laboratory Tests 12/28/17 12/28/17 12/28/17 09:08 09:08 12:41 Sodium 148 H 151 H Carbon Dioxide Creatinine 1.3 1.2 Urine Protein 2+ H Urine Blood 2+ H Acetone, Qual 12/28/17 12/28/17 12/28/17 16:12 18:45 21:15 Sodium 152 H 159 H 158 H Carbon Dioxide Creatinine 1.2 1.2 H 1.4 H Urine Protein Urine Blood Acetone, Qual 12/29/17 12/29/17 12/29/17 01:00 08:45 08:45 Sodium 160 H 161 H* Carbon Dioxide 10 L Creatinine 1.7 H 2.1 H Urine Protein Urine Blood Acetone, Qual Positive moderate 2+ H Imaging - Results Chest X-ray: Report Reviewed Problem List - Problems (1) WINTER (acute kidney injury) Code(s): N17.9 - ACUTE KIDNEY FAILURE, UNSPECIFIED (2) DKA (diabetic ketoacidoses) Code(s): E13.10 - OTH DIABETES MELLITUS WITH KETOACIDOSIS WITHOUT COMA Qualifiers: Diabetes mellitus type: type 1 Diabetes mellitus complication detail: without coma Qualified Code(s): E10.10 - Type 1 diabetes mellitus with ketoacidosis without coma (3) Sepsis Code(s): A41.9 - SEPSIS, UNSPECIFIED ORGANISM Qualifiers: Sepsis type: sepsis due to unspecified organism Qualified Code(s): A41.9 - Sepsis, unspecified organism (4) Hypernatremia Code(s): E87.0 - HYPEROSMOLALITY AND HYPERNATREMIA Assessment/Plan Current Medications Generic Name Dose Route Start Last Admin Trade Name Pearl PRN Reason Stop Dose Admin Chlorhexidine Gluconate 1 applic 12/28/17 22:00 12/28/17 22:23 Hibiclens For Decolonization - TP 1 applic HS LUCY Administration Heparin Sodium (Porcine) 5,000 unit 12/28/17 22:00 12/29/17 14:28 Heparin - SQ 5,000 unit TID LUCY Administration Piperacillin Sod/Tazobactam 50 mls @ 100 mls/hr 12/29/17 02:00 12/29/17 10:39 Sod 3.375 gm/ Dextrose IVPB 100 mls/hr Q8H-IV LUCY Administration Protocol Potassium Phosphate 30 mm/ 260 mls @ 43.333 mls/hr 12/29/17 12:18 12/29/17 14 :28 Dextrose IVPB 12/30/17 00:17 43.333 mls/hr Q6H LUCY Administration Dextrose 1,000 mls @ 100 mls/hr 12/29/17 14:15 12/29/17 14:29 D5w - IV 100 mls/hr .Q10H LUCY Administration Insulin Human Regular 100 100 mls @ 4 mls/hr 12/29/17 14:13 12/29/17 14:28 units/ Sodium Chloride IVPB 4 units/hr Q24H LUCY 4 mls/hr Administration 4 UNITS/HR Mupirocin 1 applic 12/28/17 22:00 12/29/17 10:39 Bactroban Ointment (For Decolonization) - NS 01/02/18 21:59 1 applic BID LUCY Administration Impression 1. WINTER 2. hypernatremia 3. DKA 4. metabolic acidosis - check abg 5. DM 6. change in mental status 7. sepsis 8. leukocytosis 9. hypophosphatemia Plan - pt has a total free water deficit of about 4.8 liters - will need about 2.1 liters to get her to 151 - avoid a change of greater than 10 meq in 24 hours - change fluids to a hypotonic solution - repeat labs now to evaluate sodium - monitor urine output - check renal ultrasound - check urine lytes and solids control technician to calc fena - check abg - follow anion gap and cont management of DKA per ICU team - monitor phos and mag levels - keep pt in ICU - will follow Dr Vergara
--- NOTE | 2017-12-29 16:37 | PN ---
Progress Note, Physician History of Present Illness: patient much better today still on insulin drip awake and alert no complaints says she has post nasal drip wbc still on the higher side - Current Medication List Current Medications: Active Medications Chlorhexidine Gluconate (Hibiclens For Decolonization -) 1 applic TP HS [facility] Last Admin: 12/28/17 22:23 Dose: 1 applic Heparin Sodium (Porcine) (Heparin -) 5,000 unit SQ TID [facility] Last Admin: 12/29/17 14:28 Dose: 5,000 unit Piperacillin Sod/Tazobactam (Sod 3.375 gm/ Dextrose) 50 mls @ 100 mls/hr IVPB Q8H-IV LUCY; Protocol Last Admin: 12/29/17 10:39 Dose: 100 mls/hr Potassium Phosphate 30 mm/ (Dextrose) 260 mls @ 43.333 mls/hr IVPB Q6H [facility] Stop: 12/30/17 00:17 Last Admin: 12/29/17 14:28 Dose: 43.333 mls/hr Dextrose (D5w -) 1,000 mls @ 100 mls/hr IV .Q10H [facility] Last Admin: 12/29/17 14:29 Dose: 100 mls/hr Insulin Human Regular 100 (units/ Sodium Chloride) 100 mls @ 4 mls/hr IVPB Q24H [facility] Last Admin: 12/29/17 14:28 Dose: 4 units/hr, 4 mls/hr Mupirocin (Bactroban Ointment (For Decolonization) -) 1 applic NS BID [facility] Stop: 01/02/18 21:59 Last Admin: 12/29/17 10:39 Dose: 1 applic - Objective Vital Signs: Vital Signs Temperature 98.9 F 12/29/17 12:00 Pulse Rate 96 H 12/29/17 16:00 Respiratory Rate 14 12/29/17 16:00 Blood Pressure 124/63 12/29/17 16:00 O2 Sat by Pulse Oximetry (%) 100 12/29/17 09:00 Constitutional: Yes: No Distress, Calm Cardiovascular: Yes: Regular Rate and Rhythm Respiratory: Yes: Regular, Poor Air Entry Gastrointestinal: Yes: Normal Bowel Sounds, Soft Musculoskeletal: Yes: WNL Extremities: Yes: WNL Neurological: Yes: Alert, Oriented Psychiatric: Yes: Alert, Oriented Labs: CBC, BMP 12/29/17 05:30 Assessment/Plan patient coming in with ams and dka currently in sepsis in icu and breathing through the mouth Problem List - Problems (1) DKA (diabetic ketoacidoses) (2) Sepsis 3 ams electrolyte abn lactic acidosis dehydration leukocytosis plan treatment of dka as per icu continue abx close watch on the patient hydration electrolyte mgmt monitor wbc rest as per the team await for all cx reports once patient stable will deescalate cc time 40 min
[2017-12-29 17:01] LABS: ANION GAP 12 (8-16); BLOOD UREA NITROGEN 32 mg/dL (7-18); CALCIUM 9.1 mg/dL (8.5-10.1); CHLORIDE 129 mmol/L (98-107); CO2 17 mmol/L (21-32); GLUCOSE,RANDOM 262 mg/dL (74-106); MAGNESIUM 2.1 mg/dL (1.8-2.4); POTASSIUM 4.5 mmol/L (3.5-5.1); SODIUM 158 mmol/L (136-145)
[2017-12-29 17:02] LABS: CREATININE 2.2 mg/dL (0.55-1.02); PHOSPHOROUS 1.9 mg/dL (2.5-4.9)
--- NOTE | 2017-12-29 17:39 | PN ---
Physical Exam: SUBJECTIVE: Patient seen and examined in the ICU. OBJECTIVE: More awake and alert, answering questions appropriately Vital Signs Period Temp Pulse Resp BP Sys/Mendiola Pulse Ox Last 24 Hr 92.2 F-99.1 F 93-106 14-28 118-142/61-80 100-100 GENERAL: More awake, alert today, in no acute distress HEAD: Normal with no signs of trauma. EYES: Pupils equal, round and reactive to light EARS, NOSE, THROAT: Ears normal, nares patent, oropharynx clear without exudates. Moist mucous membranes. NECK: Normal range of motion, supple without lymphadenopathy, JVD, or masses. LUNGS: Breath sounds equal, clear to auscultation bilaterally. No wheezes, and no crackles. No accessory muscle use. HEART: Regular rate and rhythm ABDOMEN: Soft, nontender, not distended, normoactive bowel sounds, no guarding, no rebound, no masses. No hepatomegaly or splenomegaly. MUSCULOSKELETAL: Normal range of motion at all joints. No bony deformities or tenderness. No CVA tenderness. UPPER EXTREMITIES: 2+ pulses, warm, well-perfused. No cyanosis. No clubbing. No peripheral edema. LOWER EXTREMITIES: 2+ pulses, warm, well-perfused. No calf tenderness. No peripheral edema. NEUROLOGICAL: clear speech, facial symmetry PSYCHIATRIC: calm, cooperative SKIN: Warm, dry, normal turgor, no rashes or lesions noted, normal capillary refill. Laboratory Results - last 24 hr 12/28/17 12/28/17 12/28/17 16:12 18:45 21:15 WBC RBC Hgb Hct MCV MCH MCHC RDW Plt Count MPV Absolute Neuts (auto) Neutrophils % Lymphocytes % Monocytes % Eosinophils % Basophils % Nucleated RBC % Sodium 159 H 158 H Potassium 3.9 3.9 Chloride 128 H 128 H Carbon Dioxide 5 L 6 L Anion Gap 26 H 24 H BUN 28 H 31 H Creatinine 1.2 H 1.4 H Creat Clearance w eGFR 46.14 38.62 Random Glucose 324 H* 248 H Hemoglobin A1c % Lactic Acid 3.2 H* Calcium 8.0 L 8.4 L Phosphorus Magnesium Total Bilirubin 0.4 D 0.5 D AST 34 31 ALT 31 31 Alkaline Phosphatase 154 H 142 H Total Protein 7.5 7.3 Albumin 3.4 3.3 L Triglycerides Cholesterol Total LDL Cholesterol HDL Cholesterol Acetone, Qual 12/28/17 12/29/17 12/29/17 21:25 01:00 05:30 WBC 14.8 H D RBC 4.92 Hgb 13.5 D Hct 41.4 D MCV 84.1 MCH 27.4 MCHC 32.6 RDW 14.3 Plt Count 129 L MPV 9.5 Absolute Neuts (auto) 12.4 Neutrophils % 83.6 H D Lymphocytes % 5.7 L D Monocytes % 10.4 H Eosinophils % 0.1 Basophils % 0.2 Nucleated RBC % 0 Sodium 160 H Potassium 4.0 Chloride 129 H Carbon Dioxide 11 L Anion Gap 20 H BUN 33 H Creatinine 1.7 H Creat Clearance w eGFR 30.87 Random Glucose 139 H Hemoglobin A1c % Lactic Acid 1.8 Calcium 8.9 Phosphorus Magnesium Total Bilirubin 0.5 AST 34 ALT 29 Alkaline Phosphatase 133 H Total Protein 7.1 Albumin 3.2 L Triglycerides Cholesterol Total LDL Cholesterol HDL Cholesterol Acetone, Qual 12/29/17 12/29/17 12/29/17 08:45 08:45 08:45 WBC RBC Hgb Hct MCV MCH MCHC RDW Plt Count MPV Absolute Neuts (auto) Neutrophils % Lymphocytes % Monocytes % Eosinophils % Basophils % Nucleated RBC % Sodium Cancelled Potassium Cancelled Chloride Cancelled Carbon Dioxide Cancelled Anion Gap Cancelled BUN Cancelled Creatinine Cancelled Creat Clearance w eGFR Cancelled Random Glucose Cancelled Hemoglobin A1c % 12.5 H Lactic Acid Calcium Cancelled Phosphorus Magnesium Cancelled Total Bilirubin Cancelled AST Cancelled ALT Cancelled Alkaline Phosphatase Cancelled Total Protein Cancelled Albumin Cancelled Triglycerides Cholesterol Total LDL Cholesterol HDL Cholesterol Acetone, Qual Positive moderate 2+ H 12/29/17 12/29/17 08:45 15:40 WBC RBC Hgb Hct MCV MCH MCHC RDW Plt Count MPV Absolute Neuts (auto) Neutrophils % Lymphocytes % Monocytes % Eosinophils % Basophils % Nucleated RBC % Sodium 161 H* 158 H Potassium 4.3 4.5 Chloride 133 H 129 H Carbon Dioxide 10 L 17 L Anion Gap 18 H 12 BUN 33 H 32 H Creatinine 2.1 H 2.2 H Creat Clearance w eGFR 24.19 22.93 Random Glucose 211 H 262 H Hemoglobin A1c % Lactic Acid Calcium 9.1 9.1 Phosphorus 0.8 L* 1.9 L Magnesium 2.3 2.1 Total Bilirubin 0.4 AST 31 ALT 29 Alkaline Phosphatase 133 H Total Protein 7.1 Albumin 3.2 L Triglycerides 34 L Cholesterol 160 Total LDL Cholesterol 99 HDL Cholesterol 68 H Acetone, Qual Active Medications Generic Name Dose Route Start Last Admin Trade Name Pearl PRN Reason Stop Dose Admin Chlorhexidine Gluconate 1 applic 12/28/17 22:00 12/28/17 22:23 Hibiclens For Decolonization - TP 1 applic HS LUCY Administration Heparin Sodium (Porcine) 5,000 unit 12/28/17 22:00 12/29/17 14:28 Heparin - SQ 5,000 unit TID LUCY Administration Piperacillin Sod/Tazobactam 50 mls @ 100 mls/hr 12/29/17 02:00 12/29/17 10:39 Sod 3.375 gm/ Dextrose IVPB 100 mls/hr Q8H-IV LUCY Administration Protocol Potassium Phosphate 30 mm/ 260 mls @ 43.333 mls/hr 12/29/17 12:18 12/29/17 14 :28 Dextrose IVPB 12/30/17 00:17 43.333 mls/hr Q6H LUCY Administration Dextrose 1,000 mls @ 100 mls/hr 12/29/17 14:15 12/29/17 14:29 D5w - IV 100 mls/hr .Q10H LUCY Administration Insulin Human Regular 100 100 mls @ 4 mls/hr 12/29/17 14:13 12/29/17 14:28 units/ Sodium Chloride IVPB 4 units/hr Q24H LUCY 4 mls/hr Administration 4 UNITS/HR Mupirocin 1 applic 12/28/17 22:00 12/29/17 10:39 Bactroban Ointment (For Decolonization) - NS 01/02/18 21:59 1 applic BID LUCY Administration ASSESSMENT/PLAN: Patient is a 57 year old female with a significant past medical history of diabetes mellitus and DKA. She presents to [facility] from [facility] today via EMS for altered mental status, blood sugars >550s , leukocytosis @ 20.6 and severe sepsis. In the ED she was found to be in DKA with a critically high glucose and anion gap of 31, + urine ketones and lactic acidosis >5. She was given IVF and started on an insulin drip. ID: Severe Sepsis, etiology unclear Blood and urine cultures pending. No obvious source of sepsis. WBC 20, lactic acid >5, hypothermia and tachycardia present. Given Levaquin in [place]. Given Zosyn now per ID recommendations. Monitor vitals, was hypothermic on admission, now resolved. Lactate acidosis resolved. ID on board. Endocrine DKA, resolved Anion gap closed. Now on Levemir and Novolog. Patient started on diet, but states she as multiple allergies to food. on D5 IVF Hmg a1c 12.5%, Lipid panel reviewed. Statement Request Clerk consulted and following. Neuro: Acute metabolic encephalopathy, likely secondary to severe sepsis and DKA, now resolved. Mental status back to baseline. Head CT negative. Renal WINTER, likely secondary to sepsis. Renal consulted. FEN D5@ 100cc/hr monitor electrolytes, potassium repletion as needed diabetic diet prophy: heparin full code Visit type - Emergency Visit Emergency Visit: Yes ED Registration Date: 12/28/17 Care time: The patient presented to the Emergency Department on the above date and was hospitalized for further evaluation of their emergent condition. - New Patient This patient is new to me today: No - Critical Care Critical Care patient: Yes Total Critical Care Time (in minutes): 45 Critical Care Statement: The care of this patient involved high complexity decision making to prevent further life threatening deterioration of the patient 's condition and/or to evaluate & treat vital organ system(s) failure or risk of failure. - Discharge Referral Referred to [facility] No
[2017-12-29] MEDS ORDERED: INSULIN SLIDING SCALE (NOVOLOG) 1 VIAL SQ SCH ×2 (20:30)
--- NOTE | 2017-12-29 20:46 | HOSP ---
Subjective - Review of Symptoms Events since last encounter: I spoke with the patient about her food allergies as we are going to start feeding her. She states that her food allergies cause her to develop very dry mucous membranes and chest rash. She also mentions an excessively sweet taste she gets that is very unpleasant. She also endorses to me taking multiple natural supplements which include a natural antiviral for recurrent HSV1, ASEA ( cell signaling supplement), a natural chelating agent for previous exposure to heavy metal, and vit. D and C. She would prefer to have her own food from home which she know will not give a reaction. She is currently eating Millet and Papaya. I informed her that the papaya has a high sugar content and could cause her sugars to rise again, however she states that this is one of the only foods that she can eat. Physical Examination Vital Signs: Vital Signs Temperature 99.2 F 12/29/17 18:00 Pulse Rate 102 H 12/29/17 20:00 Respiratory Rate 18 12/29/17 20:36 Blood Pressure 128/72 12/29/17 20:00 O2 Sat by Pulse Oximetry (%) 100 12/29/17 20:36 Constitutional: Yes: No Distress, Calm Cardiovascular: Yes: Regular Rate and Rhythm Respiratory: Yes: CTA Bilaterally Gastrointestinal: Yes: Soft Edema: No Psychiatric: Yes: Alert, Oriented Labs: CBC, BMP 12/29/17 05:30 12/29/17 15:40 Visit type - Emergency Visit Emergency Visit: Yes ED Registration Date: 12/28/17 Care time: The patient presented to the Emergency Department on the above date and was hospitalized for further evaluation of their emergent condition. - New Patient This patient is new to me today: Yes Date on this admission: 12/29/17 - Critical Care Critical Care patient: Yes Total Critical Care Time (in minutes): 33 Critical Care Statement: The care of this patient involved high complexity decision making to prevent further life threatening deterioration of the patient 's condition and/or to evaluate & treat vital organ system(s) failure or risk of failure.
[2017-12-29] MEDS: CHLORHEXIDINE GLUCONATE 4% CLEANSER FOR DECOLONIZATION TP SCH (22:10)
[2017-12-29 22:26] LABS: ALBUMIN 2.9 g/dl (3.4-5.0); ANION GAP 12 (8-16); BILIRUBIN,TOTAL 0.5 mg/dL (0.2-1.0); BLOOD UREA NITROGEN 29 mg/dL (7-18); CALCIUM 8.7 mg/dL (8.5-10.1); CHLORIDE 131 mmol/L (98-107); CO2 17 mmol/L (21-32); CREATININE 2.1 mg/dL (0.55-1.02); GLUCOSE,RANDOM 188 mg/dL (74-106); POTASSIUM 3.8 mmol/L (3.5-5.1); SGOT/AST 30 U/L (15-37); SGPT/ALT 24 U/L (12-78); SODIUM 160 mmol/L (136-145); TOT PROT 6.4 g/dl (6.4-8.2)
[2017-12-29 22:27] LABS: ALK PHOS 120 U/L (45-117)
[2017-12-30] MEDS ORDERED: PIPERACILLIN/TAZOBACTAM 3.375 GM VIAL IVPB ONE ×3 (00:55→16:41)
[2017-12-30] MEDS ORDERED: DEXTROSE 5%-WATER - 50 ML IVPB ONE ×3 (00:55→16:41)
[2017-12-30] MEDS: PIPERACILLIN/TAZOB 3.375 GM 3.375 GM in DEXTROSE 5%-WATER - 50 ML IVPB SCH ×3 (02:12→17:45)
[2017-12-30 06:39] LABS: CHLORIDE 119 mmol/L (98-107); SODIUM 149 mmol/L (136-145)
[2017-12-30 06:46] LABS: ALBUMIN 2.9 g/dl (3.4-5.0); ALK PHOS 129 U/L (45-117); ANION GAP 22 (8-16); BILIRUBIN,TOTAL 0.6 mg/dL (0.2-1.0); BLOOD UREA NITROGEN 35 mg/dL (7-18); CALCIUM 8.5 mg/dL (8.5-10.1); CO2 8 mmol/L (21-32); CREATININE 2.4 mg/dL (0.55-1.02); PHOSPHOROUS 5.5 mg/dL (2.5-4.9); SGPT/ALT 28 U/L (12-78); TOT PROT 6.9 g/dl (6.4-8.2)
[2017-12-30 06:48] LABS: GLUCOSE,RANDOM 639 mg/dL (74-106)
[2017-12-30] MEDS: HEPARIN NA (PORCINE) 5,000 UNITS/ML 1ML VIAL SQ SCH ×3 (06:57→22:22)
[2017-12-30] MEDS ORDERED: INSULIN (LEVEMIR) 100 UNITS/ML UNITS SQ SCH (07:00)
[2017-12-30] MEDS: INSULIN SLIDING SCALE (NOVOLOG) 1 VIAL SQ SCH ×2 (07:02→16:13)
--- NOTE | 2017-12-30 07:11 | PN ---
Progress Note (short form) - Note Progress Note: Paged that pt's morning BMP showing 600 glucose with re-opened anion gap to 22. Pt previously on insulin gtt and was weaned off with SQ insulin for this morning. --Restart insulin gtt 0.08U/kg/hr --NPO --NS+20mEq KCl @100cc/hr --STAT Potassium re-draw Will endorse to day team
[2017-12-30] MEDS ORDERED: INSULIN REGULAR 100 UNITS in SODIUM CHLORIDE 99 ML IVPB SCH ×2 (07:15→17:45)
[2017-12-30] MEDS ORDERED: SODIUM CHLORIDE 0.9%/KCL 20 MEQ/1,000 ML INFUS.BAG IV SCH (07:15)
[2017-12-30] MEDS ORDERED: HEMOQUE TEST 1 EACH EACH ONE (08:56)
[2017-12-30 09:30] LABS: ANION GAP 24 (8-16); BLOOD UREA NITROGEN 35 mg/dL (7-18); CALCIUM 8.7 mg/dL (8.5-10.1); CHLORIDE 122 mmol/L (98-107); CO2 9 mmol/L (21-32); CREATININE 2.7 mg/dL (0.55-1.02); MAGNESIUM 2.4 mg/dL (1.8-2.4); PHOSPHOROUS 4.9 mg/dL (2.5-4.9); POTASSIUM 3.5 mmol/L (3.5-5.1)
[2017-12-30 09:55] LABS: GLUCOSE,RANDOM 599 mg/dL (74-106); SODIUM 155 mmol/L (136-145)
--- NOTE | 2017-12-30 10:16 | PN ---
Progress Note (short form) - Note Progress Note: PULMONARY/CCM Pt seen and examined in the ICU. Blood glucose and anion gap high this AM, restarted on insulin gtt. Feels weak. Vital Signs Period Temp Pulse Resp BP Sys/Mendiola Pulse Ox Last 24 Hr 97.8 F-99.2 F 80-105 14-30 124-148/63-81 100 Intake & Output 12/27/17 12/28/17 12/29/17 12/30/17 23:59 23:59 23:59 23:59 Intake Total 2150 4071 850 Output Total 1700 3100 1100 Balance 450 971 -250 Weight 64.4 kg 63.957 kg 65.544 kg Gen: NAD at rest Heart: RRR Lung: decreased breath sounds at the bases Abd: soft, nontender Ext: no edema CBC, BMP 12/29/17 05:30 12/30/17 08:53 Active Medications Chlorhexidine Gluconate (Hibiclens For Decolonization -) 1 applic TP HS LUCY Last Admin: 12/29/17 22:10 Dose: 1 applic Heparin Sodium (Porcine) (Heparin -) 5,000 unit SQ TID LUCY Last Admin: 12/30/17 06:57 Dose: 5,000 unit Piperacillin Sod/Tazobactam (Sod 3.375 gm/ Dextrose) 50 mls @ 100 mls/hr IVPB Q8H-IV LUCY; Protocol Last Admin: 12/30/17 02:12 Dose: 100 mls/hr Dextrose (D5w -) 1,000 mls @ 100 mls/hr IV .Q10H LUCY Last Admin: 12/29/17 14:29 Dose: 100 mls/hr Potassium Chloride/Sodium Chloride (Ns+20 Meq Kcl -) 20 meq in 1,000 mls @ 100 mls/hr IV ASDIR LUCY Last Admin: 12/30/17 07:16 Dose: 100 mls/hr Insulin Human Regular 100 (units/ Sodium Chloride) 100 mls @ 5.24 mls/hr IVPB TITR LUCY; Protocol Last Titration: 12/30/17 10:08 Dose: 0.1 units/kg/hr, 6.55 mls/hr Insulin Aspart (Novolog Vial Sliding Scale -) 1 vial SQ TIDAC [facility]; Protocol Last Admin: 12/30/17 07:02 Dose: Not Given Mupirocin (Bactroban Ointment (For Decolonization) -) 1 applic NS BID LUCY Stop: 01/02/18 21:59 Last Admin: 12/29/17 22:10 Dose: 1 applic A/P Diabetic Ketoacidosis Acute Kidney Injury Metabolic Acidosis Hypernatremia - continue insulin gtt - monitor BGM q1h, BMP q4h while on insulin gtt - will change IVF to 1/2NS with 40mEq KCl - monitor urine output, creatinine - replete lytes - d/c antibiotics if cultures negative - DVT prophylaxis - continue ICU monitoring while on insulin gtt critical care time spent in reviewing chart, evaluating patient and formulating plan 35 min
[2017-12-30] MEDS ORDERED: SODIUM CHLORIDE 0.45% 1,000 ML with POTASSIUM CHLORIDE 40 MEQ IVPB SCH ×3 (10:30→11:00)
[2017-12-30] MEDS: MUPIROCIN 2% TOPICAL OINTMENT FOR DECOLONIZATION NS SCH ×2 (10:55→22:21)
[2017-12-30] MEDS: INSULIN REGULAR 100 UNITS in SODIUM CHLORIDE 99 ML IVPB SCH ×2 (11:33→16:10)
--- NOTE | 2017-12-30 12:48 | PN ---
Progress Note, Physician History of Present Illness: Pt seen and examined. Chart, labs, xrays reviewed. Pt states she still feels overall weak. Remains afebrile. Denies cough/shortness of breath, cp, abd pain/v /d, dysuria. Glucose elevated again off Insulin drip. - Current Medication List Current Medications: Active Medications Chlorhexidine Gluconate (Hibiclens For Decolonization -) 1 applic TP HS LUCY Last Admin: 12/29/17 22:10 Dose: 1 applic Heparin Sodium (Porcine) (Heparin -) 5,000 unit SQ TID LUCY Last Admin: 12/30/17 06:57 Dose: 5,000 unit Piperacillin Sod/Tazobactam (Sod 3.375 gm/ Dextrose) 50 mls @ 100 mls/hr IVPB Q8H-IV LUCY; Protocol Last Admin: 12/30/17 10:45 Dose: 100 mls/hr Dextrose (D5w -) 1,000 mls @ 100 mls/hr IV .Q10H LUCY Last Admin: 12/29/17 14:29 Dose: 100 mls/hr Insulin Human Regular 100 (units/ Sodium Chloride) 100 mls @ 6.55 mls/hr IVPB TITR LUCY; Protocol Last Admin: 12/30/17 11:33 Dose: Not Given Potassium Chloride 40 meq/ (Sodium Chloride) 1,020 mls @ 150 mls/hr IVPB ASDIR LUCY Last Admin: 12/30/17 11:37 Dose: 150 mls/hr Insulin Aspart (Novolog Vial Sliding Scale -) 1 vial SQ TIDAC [facility]; Protocol Last Admin: 12/30/17 07:02 Dose: Not Given Mupirocin (Bactroban Ointment (For Decolonization) -) 1 applic NS BID LUCY Stop: 01/02/18 21:59 Last Admin: 12/30/17 10:55 Dose: 1 applic - Objective Vital Signs: Vital Signs Temperature 97.8 F 12/30/17 08:00 Pulse Rate 100 H 12/30/17 10:00 Respiratory Rate 30 H 12/30/17 10:00 Blood Pressure 145/75 12/30/17 10:00 O2 Sat by Pulse Oximetry (%) 100 12/29/17 20:36 Constitutional: Yes: No Distress, Calm Eyes: Yes: WNL Neck: Yes: Supple Cardiovascular: Yes: Tachycardia Respiratory: Yes: CTA Bilaterally Gastrointestinal: Yes: Normal Bowel Sounds, Soft Genitourinary: Yes: Brantley Present Extremities: Yes: WNL Edema: No Integumentary: Yes: WNL Neurological: Yes: Alert, Oriented Labs: CBC, BMP 12/29/17 05:30 12/30/17 08:53 Microbiology 12/28/17 09:08 Blood - Peripheral Venous Blood Culture - Preliminary NO GROWTH OBTAINED AFTER 48 HOURS, INCUBATION TO CONTINUE FOR 3 DAYS. 12/28/17 09:08 Blood - Peripheral Venous Blood Culture - Preliminary NO GROWTH OBTAINED AFTER 48 HOURS, INCUBATION TO CONTINUE FOR 3 DAYS. 12/28/17 09:08 Urine - Urine - Catheterized Urine Culture - Final NO GROWTH OBTAINED Assessment/Plan 57 y.o. female with PMH of Uncontrolled DM with hospitalizations for DKA, CKD admitted with AMS, blood glucose >500, leukocytosis, lactic acidosis suggesting sepsis. Pt restarted on insulin drip, remains afebrile, wbc decreased yesterday. Lactic acidosis Leukocytosis DKA CKD -- repeat cbc, monitor wbc -- Blood/urine cultures negative, CXR without infiltrates -- will consider d/c antibiotics if remains stable -- on Insulin drip rest of care per ICU case d/w pts daughter at length cc time: 40 min
--- NOTE | 2017-12-30 14:30 | PN ---
Progress Note, Physician History of Present Illness: Pt seen and examined at bedside. She is out of bed to chair. She denies shortness of breath. Her renal function is worsening however she is making urine. - Current Medication List Current Medications: Active Medications Chlorhexidine Gluconate (Hibiclens For Decolonization -) 1 applic TP HS LUCY Last Admin: 12/29/17 22:10 Dose: 1 applic Heparin Sodium (Porcine) (Heparin -) 5,000 unit SQ TID LUCY Last Admin: 12/30/17 06:57 Dose: 5,000 unit Piperacillin Sod/Tazobactam (Sod 3.375 gm/ Dextrose) 50 mls @ 100 mls/hr IVPB Q8H-IV LUCY; Protocol Last Admin: 12/30/17 10:45 Dose: 100 mls/hr Dextrose (D5w -) 1,000 mls @ 100 mls/hr IV .Q10H LUCY Last Admin: 12/29/17 14:29 Dose: 100 mls/hr Insulin Human Regular 100 (units/ Sodium Chloride) 100 mls @ 6.55 mls/hr IVPB TITR LUCY; Protocol Last Admin: 12/30/17 11:33 Dose: Not Given Potassium Chloride 40 meq/ (Sodium Chloride) 1,020 mls @ 150 mls/hr IVPB ASDIR LUCY Last Admin: 12/30/17 11:37 Dose: 150 mls/hr Insulin Aspart (Novolog Vial Sliding Scale -) 1 vial SQ TIDAC [facility]; Protocol Last Admin: 12/30/17 07:02 Dose: Not Given Mupirocin (Bactroban Ointment (For Decolonization) -) 1 applic NS BID LUCY Stop: 01/02/18 21:59 Last Admin: 12/30/17 10:55 Dose: 1 applic - Objective Vital Signs: Vital Signs Temperature 97.8 F 12/30/17 08:00 Pulse Rate 102 H 12/30/17 12:00 Respiratory Rate 21 12/30/17 12:00 Blood Pressure 124/75 12/30/17 12:00 O2 Sat by Pulse Oximetry (%) 100 12/29/17 20:36 Constitutional: Yes: Calm Eyes: Yes: Conjunctiva Clear HENT: Yes: Atraumatic Cardiovascular: Yes: S1, S2 Respiratory: Yes: CTA Bilaterally Gastrointestinal: Yes: Soft Genitourinary: Yes: Brantley Present Musculoskeletal: Yes: WNL Edema: No Neurological: Yes: Oriented Psychiatric: Yes: Oriented Labs: CBC, BMP 12/29/17 05:30 12/30/17 08:53 Problem List - Problems (1) WINTER (acute kidney injury) Code(s): N17.9 - ACUTE KIDNEY FAILURE, UNSPECIFIED (2) DKA (diabetic ketoacidoses) Code(s): E13.10 - OTH DIABETES MELLITUS WITH KETOACIDOSIS WITHOUT COMA Qualifiers: Diabetes mellitus type: type 1 Diabetes mellitus complication detail: without coma Qualified Code(s): E10.10 - Type 1 diabetes mellitus with ketoacidosis without coma (3) Sepsis Code(s): A41.9 - SEPSIS, UNSPECIFIED ORGANISM Qualifiers: Sepsis type: sepsis due to unspecified organism Qualified Code(s): A41.9 - Sepsis, unspecified organism (4) Hypernatremia Code(s): E87.0 - HYPEROSMOLALITY AND HYPERNATREMIA Assessment/Plan Current Medications Generic Name Dose Route Start Last Admin Trade Name Pearl PRN Reason Stop Dose Admin Chlorhexidine Gluconate 1 applic 12/28/17 22:00 12/29/17 22:10 Hibiclens For Decolonization - TP 1 applic HS LUCY Administration Heparin Sodium (Porcine) 5,000 unit 12/28/17 22:00 12/30/17 06:57 Heparin - SQ 5,000 unit TID LUCY Administration Piperacillin Sod/Tazobactam 50 mls @ 100 mls/hr 12/29/17 02:00 12/30/17 10:45 Sod 3.375 gm/ Dextrose IVPB 100 mls/hr Q8H-IV LUCY Administration Protocol Dextrose 1,000 mls @ 100 mls/hr 12/29/17 14:15 12/29/17 14:29 D5w - IV 100 mls/hr .Q10H LUCY Administration Insulin Human Regular 100 100 mls @ 6.55 mls/hr 12/30/17 10:19 12/30/17 11:33 units/ Sodium Chloride IVPB Not Given TITR LUCY Protocol 0.1 UNITS/KG/HR Potassium Chloride 40 meq/ 1,020 mls @ 150 mls/hr 12/30/17 11:00 12/30/17 11: 37 Sodium Chloride IVPB 150 mls/hr ASDIR LUCY Administration Insulin Aspart 1 vial 12/30/17 07:00 12/30/17 07:02 Novolog Vial Sliding Scale - SQ Not Given TIDAC [facility] Protocol Mupirocin 1 applic 12/28/17 22:00 12/30/17 10:55 Bactroban Ointment (For Decolonization) - NS 01/02/18 21:59 1 applic BID LUCY Administration Laboratory Tests 12/30/17 08:53 Sodium 155 H Potassium 3.5 Phosphorus 4.9 Magnesium 2.4 Impression 1. WINTER 2. hypernatremia 3. DKA 4. metabolic acidosis - check abg 5. DM 6. change in mental status 7. sepsis 8. leukocytosis 9. hypophosphatemia Plan - cont with hypotonic fluids - monitor urine output - will re-order renal ultrasound and urine studies - renal function worsening - will send out more extensive renal workup - pt is more acidotic and glucose is elevated - follow anion gap and cont management of DKA per ICU team - monitor phos and mag levels - keep pt in ICU - will follow Dr Vergara
[2017-12-30 15:57] LABS: URINE APPEARANCE CLOUDY; URINE BILIRUBIN NEGATIVE (<2.0 mg/dL); URINE COLOR STRAW; URINE GLUCOSE (UA) 3+ (NEGATIVE); URINE KETONE 1+ (NEGATIVE); URINE LEUK ESTERASE NEGATIVE (NEGATIVE); URINE NITRITE NEGATIVE (NEGATIVE); URINE PROTEIN NEGATIVE (NEGATIVE); URINE UROBILINOGEN NEGATIVE mg/dL (0.2-1.0)
[2017-12-30] MEDS ORDERED: DEXTROSE 5%-0.45% SALINE 980 ML with POTASSIUM CHLORIDE 40 MEQ IVPB SCH (16:00)
--- NOTE | 2017-12-30 16:09 | PN ---
Progress Note (short form) - Note Progress Note: Events noted Back on Insulin drip Vital Signs Period Temp Pulse Resp BP Sys/Mendiola Pulse Ox Last 24 Hr 97.8 F-99.2 F 80-105 16-30 122-148/63-81 100 PE: AOx3 Neck: Supple, No JVD HEENT: PERRL,EOMI Lungs: CTA CVS: S1S2 Abd: Benign Ext: No edema Neuro: No focal deficit CMP Sodium 155 mmol/L (136-145) H 12/30/17 08:53 Potassium 3.5 mmol/L (3.5-5.1) 12/30/17 08:53 Chloride 122 mmol/L (98-107) H 12/30/17 08:53 Carbon Dioxide 9 mmol/L (21-32) L 12/30/17 08:53 Anion Gap 24 (8-16) H 12/30/17 08:53 BUN 35 mg/dL (7-18) H 12/30/17 08:53 Creatinine 2.7 mg/dL (0.55-1.02) H 12/30/17 08:53 Creat Clearance w eGFR 18.10 (>60) 12/30/17 08:53 POC Glucometer 236.44648 UNITS (80-120) 12/30/17 14:34 Random Glucose 599 mg/dL (74-106) H* 12/30/17 08:53 Hemoglobin A1c % 12.5 % (4.8-6.0) H 12/29/17 08:45 Lactic Acid 1.8 mmol/L (0.0-2.0) 12/28/17 21:25 Calcium 8.7 mg/dL (8.5-10.1) 12/30/17 08:53 Phosphorus 4.9 mg/dL (2.5-4.9) 12/30/17 08:53 Magnesium 2.4 mg/dL (1.8-2.4) 12/30/17 08:53 Total Bilirubin 0.6 mg/dL (0.2-1.0) 12/30/17 05:30 AST U/L (15-37) 12/30/17 05:30 ALT 28 U/L (12-78) 12/30/17 05:30 Alkaline Phosphatase 129 U/L (45-117) H 12/30/17 05:30 Troponin I < 0.03 ng/ml (0.00-0.06) 12/28/17 09:08 Total Protein 6.9 g/dl (6.4-8.2) 12/30/17 05:30 Albumin 2.9 g/dl (3.4-5.0) L 12/30/17 05:30 Triglycerides 34 mg/dL (35-160) L 12/29/17 08:45 Cholesterol 160 mg/dL (50-200) 12/29/17 08:45 Total LDL Cholesterol 99 mg/dL (5-100) 12/29/17 08:45 HDL Cholesterol 68 mg/dL (40-60) H 12/29/17 08:45 Current Medications Generic Name Dose Route Start Last Admin Trade Name Freq PRN Reason Stop Dose Admin Bisacodyl 5 mg 12/30/17 14:45 Dulcolax - PO DAILY LUCY Chlorhexidine Gluconate 1 applic 12/28/17 22:00 12/29/17 22:10 Hibiclens For Decolonization - TP 1 applic HS LUCY Administration Heparin Sodium (Porcine) 5,000 unit 12/28/17 22:00 12/30/17 06:57 Heparin - SQ 5,000 unit TID LUCY Administration Piperacillin Sod/Tazobactam 50 mls @ 100 mls/hr 12/29/17 02:00 12/30/17 10:45 Sod 3.375 gm/ Dextrose IVPB 100 mls/hr Q8H-IV LUCY Administration Protocol Dextrose 1,000 mls @ 100 mls/hr 12/29/17 14:15 12/29/17 14:29 D5w - IV 100 mls/hr .Q10H LUCY Administration Insulin Human Regular 100 100 mls @ 6.55 mls/hr 12/30/17 10:19 12/30/17 11:33 units/ Sodium Chloride IVPB Not Given TITR LUCY Protocol 0.1 UNITS/KG/HR Potassium Chloride 40 meq/ 1,000 mls @ 150 mls/hr 12/30/17 16:00 Dextrose/Sodium Chloride IVPB ASDIR LUCY Insulin Aspart 1 vial 12/30/17 07:00 12/30/17 07:02 Novolog Vial Sliding Scale - SQ Not Given TIDAC [facility] Protocol Mupirocin 1 applic 12/28/17 22:00 12/30/17 10:55 Bactroban Ointment (For Decolonization) - NS 01/02/18 21:59 1 applic BID LUCY Administration AP: T1DM DKA Hypernatremia WINTER IV hydration: on D5 1/2NS with 40 KCl at 150ml/hr Got Levemir 30 units in the morning today Insulin drip to maintain FS 140 to 180 Insulin drip to be continued till Acidosis resolves, with CO2 20 or more with normalization of A Gap. Levemir 15 units to be given at least an hour before stopping Insulin drip if it is done tomorrow. Pt already got Levemir today, so no levemir today. Increase D5 rate if blood sugar drops to <120 CMP Q4 hrs until acidosis resolves Electrolyte replacement as necessary.
[2017-12-30 16:34] LABS: EPI CELLS RARE /HPF (FEW); URINE BACTERIA RARE /hpf (NONE SEEN); URINE MUCUS RARE
[2017-12-30] MEDS: BISACODYL 5 MG TABLET.DR (FP) PO SCH (16:47)
[2017-12-30] MEDS: D5-1/2NS+40 MEQ KCL - 40 MEQ/1,000 ML INFUS.BAG IV SCH ×2 (16:50→22:22)
[2017-12-30 17:29] LABS: BASO % 0.5 % (0-2.0); EOS % 0.1 % (0-4.5); HEMOGLOBIN 15.2 GM/dL (10.7-15.3); MCH 27.1 pg (25.7-33.7); MCHC 33.1 g/dl (32.0-36.0); MONO % 8.5 % (3.8-10.2); NEUT % 78.9 % (42.8-82.8); PLATELET COUNT 118 K/MM3 (134-434); RBC 5.61 M/mm3 (3.60-5.2); RDW 14.3 % (11.6-15.6); WHITE BLOOD COUNT 14.1 K/mm3 (4.0-10.0)
[2017-12-30 17:39] LABS: ANION GAP 13 (8-16); BLOOD UREA NITROGEN 29 mg/dL (7-18); CALCIUM 8.9 mg/dL (8.5-10.1); CHLORIDE 132 mmol/L (98-107); CO2 16 mmol/L (21-32); CREATININE 2.1 mg/dL (0.55-1.02); GLUCOSE,RANDOM 111 mg/dL (74-106); MAGNESIUM 2.2 mg/dL (1.8-2.4); PHOSPHOROUS 2.5 mg/dL (2.5-4.9); POTASSIUM 3.9 mmol/L (3.5-5.1)
[2017-12-30 17:42] LABS: SODIUM 161 mmol/L (136-145)
--- NOTE | 2017-12-30 18:22 | PN ---
Physical Exam: SUBJECTIVE: Patient seen and examined. She complains of soreness of her palate and throat. OBJECTIVE: Vital Signs Period Temp Pulse Resp BP Sys/Mendiola Pulse Ox Last 24 Hr 97.8 F-98.7 F 80-105 16-30 122-148/63-81 100 GENERAL: The patient is awake, alert, and fully oriented, in no acute distress. MOUTH: Pharynx clear. Mucous membranes dry. No ulcers. LUNGS: Breath sounds equal, clear to auscultation bilaterally, no wheezes, no crackles, no accessory muscle use. HEART: Regular rate and rhythm, S1, S2 without murmur, rub or gallop. ABDOMEN: Soft, nontender, nondistended, normoactive bowel sounds, no guarding, no rebound, no hepatosplenomegaly, no masses. EXTREMITIES: 2+ pulses, warm, well-perfused, no edema. Laboratory Results - last 24 hr 12/28/17 12/28/17 12/28/17 18:01 19:05 20:19 WBC RBC Hgb Hct MCV MCH MCHC RDW Plt Count MPV Absolute Neuts (auto) Neutrophils % Lymphocytes % Monocytes % Eosinophils % Basophils % Nucleated RBC % Sodium Potassium Chloride Carbon Dioxide Anion Gap BUN Creatinine Creat Clearance w eGFR POC Glucometer 354.46564 347.83034 [phone] Random Glucose Calcium Phosphorus Magnesium Total Bilirubin AST ALT Alkaline Phosphatase Total Protein Albumin Urine Color Urine Appearance Urine pH Ur Specific [place] Urine Protein Urine Glucose (UA) Urine Ketones Urine Blood Urine Nitrite Urine Bilirubin Urine Urobilinogen Ur Leukocyte Esterase Urine WBC (Auto) Urine RBC (Auto) Ur Epithelial Cells Urine Bacteria Urine Mucus Urine Creatinine 12/28/17 12/28/17 12/29/17 21:14 22:17 00:04 WBC RBC Hgb Hct MCV MCH MCHC RDW Plt Count MPV Absolute Neuts (auto) Neutrophils % Lymphocytes % Monocytes % Eosinophils % Basophils % Nucleated RBC % Sodium Potassium Chloride Carbon Dioxide Anion Gap BUN Creatinine Creat Clearance w eGFR POC Glucometer 256.74701 221.67823 159.01489 Random Glucose Calcium Phosphorus Magnesium Total Bilirubin AST ALT Alkaline Phosphatase Total Protein Albumin Urine Color Urine Appearance Urine pH Ur Specific [place] Urine Protein Urine Glucose (UA) Urine Ketones Urine Blood Urine Nitrite Urine Bilirubin Urine Urobilinogen Ur Leukocyte Esterase Urine WBC (Auto) Urine RBC (Auto) Ur Epithelial Cells Urine Bacteria Urine Mucus Urine Creatinine 12/29/17 12/29/17 12/29/17 01:19 02:14 03:10 WBC RBC Hgb Hct MCV MCH MCHC RDW Plt Count MPV Absolute Neuts (auto) Neutrophils % Lymphocytes % Monocytes % Eosinophils % Basophils % Nucleated RBC % Sodium Potassium Chloride Carbon Dioxide Anion Gap BUN Creatinine Creat Clearance w eGFR POC Glucometer 155.55524 174.32676 [phone] Random Glucose Calcium Phosphorus Magnesium Total Bilirubin AST ALT Alkaline Phosphatase Total Protein Albumin Urine Color Urine Appearance Urine pH Ur Specific [place] Urine Protein Urine Glucose (UA) Urine Ketones Urine Blood Urine Nitrite Urine Bilirubin Urine Urobilinogen Ur Leukocyte Esterase Urine WBC (Auto) Urine RBC (Auto) Ur Epithelial Cells Urine Bacteria Urine Mucus Urine Creatinine 12/29/17 12/29/17 12/29/17 04:11 05:15 06:25 WBC RBC Hgb Hct MCV MCH MCHC RDW Plt Count MPV Absolute Neuts (auto) Neutrophils % Lymphocytes % Monocytes % Eosinophils % Basophils % Nucleated RBC % Sodium Potassium Chloride Carbon Dioxide Anion Gap BUN Creatinine Creat Clearance w eGFR POC Glucometer 220.05483 234.07635 [phone] Random Glucose Calcium Phosphorus Magnesium Total Bilirubin AST ALT Alkaline Phosphatase Total Protein Albumin Urine Color Urine Appearance Urine pH Ur Specific [place] Urine Protein Urine Glucose (UA) Urine Ketones Urine Blood Urine Nitrite Urine Bilirubin Urine Urobilinogen Ur Leukocyte Esterase Urine WBC (Auto) Urine RBC (Auto) Ur Epithelial Cells Urine Bacteria Urine Mucus Urine Creatinine 12/29/17 12/29/17 12/29/17 07:12 09:21 11:16 WBC RBC Hgb Hct MCV MCH MCHC RDW Plt Count MPV Absolute Neuts (auto) Neutrophils % Lymphocytes % Monocytes % Eosinophils % Basophils % Nucleated RBC % Sodium Potassium Chloride Carbon Dioxide Anion Gap BUN Creatinine Creat Clearance w eGFR POC Glucometer 251.46407 263.01308 [phone] Random Glucose Calcium Phosphorus Magnesium Total Bilirubin AST ALT Alkaline Phosphatase Total Protein Albumin Urine Color Urine Appearance Urine pH Ur Specific [place] Urine Protein Urine Glucose (UA) Urine Ketones Urine Blood Urine Nitrite Urine Bilirubin Urine Urobilinogen Ur Leukocyte Esterase Urine WBC (Auto) Urine RBC (Auto) Ur Epithelial Cells Urine Bacteria Urine Mucus Urine Creatinine 12/29/17 12/29/17 12/29/17 13:49 17:09 20:03 WBC RBC Hgb Hct MCV MCH MCHC RDW Plt Count MPV Absolute Neuts (auto) Neutrophils % Lymphocytes % Monocytes % Eosinophils % Basophils % Nucleated RBC % Sodium Potassium Chloride Carbon Dioxide Anion Gap BUN Creatinine Creat Clearance w eGFR POC Glucometer 274.90984 252.10449 [phone] Random Glucose Calcium Phosphorus Magnesium Total Bilirubin AST ALT Alkaline Phosphatase Total Protein Albumin Urine Color Urine Appearance Urine pH Ur Specific [place] Urine Protein Urine Glucose (UA) Urine Ketones Urine Blood Urine Nitrite Urine Bilirubin Urine Urobilinogen Ur Leukocyte Esterase Urine WBC (Auto) Urine RBC (Auto) Ur Epithelial Cells Urine Bacteria Urine Mucus Urine Creatinine 12/29/17 12/30/17 12/30/17 21:40 05:30 08:35 WBC RBC Hgb Hct MCV MCH MCHC RDW Plt Count MPV Absolute Neuts (auto) Neutrophils % Lymphocytes % Monocytes % Eosinophils % Basophils % Nucleated RBC % Sodium 160 H 149 H Cancelled Potassium 3.8 Cancelled Chloride 131 H 119 H Cancelled Carbon Dioxide 17 L 8 L Cancelled Anion Gap 12 22 H Cancelled BUN 29 H 35 H Cancelled Creatinine 2.1 H 2.4 H Cancelled Creat Clearance w eGFR 24.19 20.73 Cancelled POC Glucometer Random Glucose 188 H 639 H* Cancelled Calcium 8.7 8.5 Cancelled Phosphorus 5.5 H Cancelled Magnesium Total Bilirubin 0.5 0.6 AST 30 ALT 24 28 Alkaline Phosphatase 120 H D 129 H Total Protein 6.4 6.9 Albumin 2.9 L 2.9 L Urine Color Urine Appearance Urine pH Ur Specific [place] Urine Protein Urine Glucose (UA) Urine Ketones Urine Blood Urine Nitrite Urine Bilirubin Urine Urobilinogen Ur Leukocyte Esterase Urine WBC (Auto) Urine RBC (Auto) Ur Epithelial Cells Urine Bacteria Urine Mucus Urine Creatinine 12/30/17 12/30/17 12/30/17 08:53 13:13 14:34 WBC RBC Hgb Hct MCV MCH MCHC RDW Plt Count MPV Absolute Neuts (auto) Neutrophils % Lymphocytes % Monocytes % Eosinophils % Basophils % Nucleated RBC % Sodium 155 H Potassium 3.5 Chloride 122 H Carbon Dioxide 9 L Anion Gap 24 H BUN 35 H Creatinine 2.7 H Creat Clearance w eGFR 18.10 POC Glucometer 359.08791 236.79238 Random Glucose 599 H* Calcium 8.7 Phosphorus 4.9 Magnesium 2.4 Total Bilirubin AST ALT Alkaline Phosphatase Total Protein Albumin Urine Color Urine Appearance Urine pH Ur Specific [place] Urine Protein Urine Glucose (UA) Urine Ketones Urine Blood Urine Nitrite Urine Bilirubin Urine Urobilinogen Ur Leukocyte Esterase Urine WBC (Auto) Urine RBC (Auto) Ur Epithelial Cells Urine Bacteria Urine Mucus Urine Creatinine 12/30/17 12/30/17 12/30/17 14:55 14:55 15:50 WBC RBC Hgb Hct MCV MCH MCHC RDW Plt Count MPV Absolute Neuts (auto) Neutrophils % Lymphocytes % Monocytes % Eosinophils % Basophils % Nucleated RBC % Sodium 161 H* Potassium 3.9 Chloride 132 H Carbon Dioxide 16 L Anion Gap 13 BUN 29 H Creatinine 2.1 H Creat Clearance w eGFR 24.19 POC Glucometer Random Glucose 111 H Calcium 8.9 Phosphorus 2.5 Magnesium 2.2 Total Bilirubin AST ALT Alkaline Phosphatase Total Protein Albumin Urine Color Straw Urine Appearance Cloudy Urine pH 5.0 Ur Specific [place] 1.016 Urine Protein Negative Urine Glucose (UA) 3+ H Urine Ketones 1+ H Urine Blood 1+ H Urine Nitrite Negative Urine Bilirubin Negative Urine Urobilinogen Negative Ur Leukocyte Esterase Negative Urine WBC (Auto) 3 Urine RBC (Auto) 5 Ur Epithelial Cells Rare Urine Bacteria Rare Urine Mucus Rare Urine Creatinine 47.8 12/30/17 12/30/17 15:50 16:00 WBC 14.1 H RBC 5.61 H Hgb 15.2 Hct 46.0 H MCV 82.0 MCH 27.1 MCHC 33.1 RDW 14.3 Plt Count 118 L MPV 9.0 Absolute Neuts (auto) 11.1 Neutrophils % 78.9 Lymphocytes % 12.0 D Monocytes % 8.5 Eosinophils % 0.1 Basophils % 0.5 Nucleated RBC % 0 Sodium Potassium Chloride Carbon Dioxide Anion Gap BUN Creatinine Creat Clearance w eGFR POC Glucometer [phone] Random Glucose Calcium Phosphorus Magnesium Total Bilirubin AST ALT Alkaline Phosphatase Total Protein Albumin Urine Color Urine Appearance Urine pH Ur Specific [place] Urine Protein Urine Glucose (UA) Urine Ketones Urine Blood Urine Nitrite Urine Bilirubin Urine Urobilinogen Ur Leukocyte Esterase Urine WBC (Auto) Urine RBC (Auto) Ur Epithelial Cells Urine Bacteria Urine Mucus Urine Creatinine Active Medications Generic Name Dose Route Start Last Admin Trade Name Freq PRN Reason Stop Dose Admin Bisacodyl 5 mg 12/30/17 14:45 12/30/17 16:47 Dulcolax - PO 5 mg DAILY LUCY Administration Chlorhexidine Gluconate 1 applic 12/28/17 22:00 12/29/17 22:10 Hibiclens For Decolonization - TP 1 applic HS LUCY Administration Heparin Sodium (Porcine) 5,000 unit 12/28/17 22:00 12/30/17 16:43 Heparin - SQ 5,000 unit TID LUCY Administration Piperacillin Sod/Tazobactam 50 mls @ 100 mls/hr 12/29/17 02:00 12/30/17 17:45 Sod 3.375 gm/ Dextrose IVPB 100 mls/hr Q8H-IV LUCY Administration Protocol Dextrose 1,000 mls @ 100 mls/hr 12/29/17 14:15 12/29/17 14:29 D5w - IV 100 mls/hr .Q10H LUCY Administration Insulin Human Regular 100 100 mls @ 6.55 mls/hr 12/30/17 10:19 12/30/17 17:25 units/ Sodium Chloride IVPB 0.03 units/kg/hr TITR LUCY 2 mls/hr Titration Protocol 0.1 UNITS/KG/HR Dextrose/Sodium Chloride 40 meq in 1,000 mls @ 150 mls/hr 12/30/17 16:16 16:50 D5-1/2ns+40 Meq Kcl - IV 150 mls/hr ASDIR LUCY Administration Insulin Human Regular 100 100 mls @ 4 mls/hr 12/30/17 17:45 12/30/17 17:48 units/ Sodium Chloride IVPB 2 units/hr TITR LUCY 2 mls/hr Administration Protocol Mupirocin 1 applic 12/28/17 22:00 12/30/17 10:55 Bactroban Ointment (For Decolonization) - NS 01/02/18 21:59 1 applic BID LUCY Administration ASSESSMENT/PLAN: This is a 57 year old woman with a history of diabetes mellitus who presented to the ED with altered mental status. 1. DKA - Insulin drip had to be restarted this morning - Anion gap, acidosis improving - Continue regular insulin drip, IV D5 1/2 NS with KCl 2. Acute toxic metabolic encephalopathy - Improved 3. SIRS - Likely secondary to DKA, dehydration - No obvious source of infection - Lactic acidemia, hypothermia, tachycardia improved - Leukocytosis improving - Blood cultures negative after 48 hrs - Urine culture negative - On Zosyn empirically 4. Acute kidney injury - Continue IV fluid - Some improvement in BUN, creatinine today - Continue to monitor BUN, creatinine 5. Hypernatremia - Continue IV D5 1/2 NS - Continue to monitor electrolytes Visit type - Emergency Visit Emergency Visit: Yes ED Registration Date: 12/28/17 Care time: The patient presented to the Emergency Department on the above date and was hospitalized for further evaluation of their emergent condition. - New Patient This patient is new to me today: Yes Date on this admission: 12/30/17 - Critical Care Critical Care patient: No - Discharge Referral Referred to [facility] Med [facility] No
[2017-12-30] MEDS: ONDANSETRON 4 MG/2 ML VIAL IVPUSH PRN (18:39)
[2017-12-30] MEDS ORDERED: INSULIN (NOVOLOG) ASPART 100 UNITS/ML 10ML VIAL ONE (19:24)
[2017-12-30] MEDS ORDERED: DEXTROSE 50%-WATER 25 GM/50 ML DISP.SYRIN IVPUSH PRN (21:53)
[2017-12-30] MEDS: MAG HYDROX/ALH/SMC/DPHA/LIDO 240 ML MOUTHWASH MM SCH (22:05)
[2017-12-30] MEDS: CHLORHEXIDINE GLUCONATE 4% CLEANSER FOR DECOLONIZATION TP SCH (22:22)
[2017-12-31] MEDS ORDERED: PIPERACILLIN/TAZOBACTAM 3.375 GM VIAL IVPB ONE ×3 (01:22→17:46)
[2017-12-31] MEDS ORDERED: DEXTROSE 5%-WATER - 50 ML IVPB ONE ×3 (01:22→17:46)
[2017-12-31] MEDS: PIPERACILLIN/TAZOB 3.375 GM 3.375 GM in DEXTROSE 5%-WATER - 50 ML IVPB SCH ×3 (01:27→17:50)
[2017-12-31] MEDS: D5-1/2NS+40 MEQ KCL - 40 MEQ/1,000 ML INFUS.BAG IV SCH (05:00)
[2017-12-31] MEDS: HEPARIN NA (PORCINE) 5,000 UNITS/ML 1ML VIAL SQ SCH ×3 (05:49→21:31)
[2017-12-31 06:43] LABS: HEMATOCRIT 40.4 % (32.4-45.2); HEMOGLOBIN 13.6 GM/dL (10.7-15.3); LYMPH % 19.3 % (8-40); MCH 27.5 pg (25.7-33.7); MCHC 33.8 g/dl (32.0-36.0); MEAN CELL VOLUME 81.5 fl (80-96); MONO % 6.6 % (3.8-10.2); NEUT % 72.1 % (42.8-82.8); PLATELET COUNT 111 K/MM3 (134-434); RBC 4.96 M/mm3 (3.60-5.2); RDW 14.3 % (11.6-15.6); WHITE BLOOD COUNT 11.8 K/mm3 (4.0-10.0)
[2017-12-31] MEDS ORDERED: DEXTROSE 50%-WATER 25 GM/50 ML DISP.SYRIN ONE (06:45)
[2017-12-31 07:09] LABS: ALBUMIN 2.7 g/dl (3.4-5.0); ANION GAP 8 (8-16); BLOOD UREA NITROGEN 27 mg/dL (7-18); CALCIUM 8.7 mg/dL (8.5-10.1); CHLORIDE 133 mmol/L (98-107); CO2 20 mmol/L (21-32); CREATININE 1.8 mg/dL (0.55-1.02); GLUCOSE,RANDOM 79 mg/dL (74-106); MAGNESIUM 2.1 mg/dL (1.8-2.4); PHOSPHOROUS 1.8 mg/dL (2.5-4.9); POTASSIUM 3.7 mmol/L (3.5-5.1); SGOT/AST 22 U/L (15-37); SGPT/ALT 25 U/L (12-78); TOT PROT 6.4 g/dl (6.4-8.2)
[2017-12-31 07:10] LABS: ALK PHOS 114 U/L (45-117)
[2017-12-31] MEDS ORDERED: INSULIN (LEVEMIR) 100 UNITS/ML UNITS SQ ONE (08:05)
--- NOTE | 2017-12-31 08:08 | PN ---
Progress Note (short form) - Note Progress Note: Subjective: The patient was seen and examined at the bedside, she reports feeling better today. Gap closed, Co2 20 Cr 1.8 Will given 15u Levemir and the stop insulin gtt 1 hour later Current Medications Generic Name Dose Route Start Last Admin Trade Name Freq PRN Reason Stop Dose Admin Bisacodyl 5 mg 12/30/17 14:45 12/30/17 16:47 Dulcolax - PO 5 mg DAILY LUCY Administration Chlorhexidine Gluconate 1 applic 12/28/17 22:00 12/30/17 22:22 Hibiclens For Decolonization - TP 1 applic HS LUCY Administration Dextrose 25 gm 12/30/17 21:53 12/31/17 06:40 D50w (Syringe) - IVPUSH 25 gm PRN PRN Administration LOW BG Heparin Sodium (Porcine) 5,000 unit 12/28/17 22:00 12/31/17 05:49 Heparin - SQ 5,000 unit TID LUCY Administration Piperacillin Sod/Tazobactam 50 mls @ 100 mls/hr 12/29/17 02:00 12/31/17 01:27 Sod 3.375 gm/ Dextrose IVPB 100 mls/hr Q8H-IV LUCY Administration Protocol Dextrose 1,000 mls @ 100 mls/hr 12/29/17 14:15 12/29/17 14:29 D5w - IV 100 mls/hr .Q10H LUCY Administration Dextrose/Sodium Chloride 40 meq in 1,000 mls @ 150 mls/hr 12/30/17 16:16 05:00 D5-1/2ns+40 Meq Kcl - IV 175 mls/hr ASDIR LUCY Administration Insulin Human Regular 100 100 mls @ 4 mls/hr 12/30/17 17:45 12/31/17 07:15 units/ Sodium Chloride IVPB 4 units/hr TITR LUCY 4 mls/hr Titration Protocol Insulin Detemir 15 units 12/31/17 08:05 Levemir Vial SQ 12/31/17 08:06 ONCE ONE Lidocaine/Aluminum/Magnesium/Simeth 5 ml 12/31/17 18:30 Magic Mouthwash *Sjr Formula* - MM Q6HPO LUCY Mupirocin 1 applic 12/28/17 22:00 12/30/17 22:21 Bactroban Ointment (For Decolonization) - NS 01/02/18 21:59 1 applic BID LUCY Administration Ondansetron HCl 4 mg 12/30/17 18:26 12/30/17 18:39 Zofran Injection IVPUSH 4 mg Q6H PRN Administration NAUSEA AND/OR VOMITING Objective: Vital Signs Period Temp Pulse Resp BP Sys/Mendiola Pulse Ox Last 24 Hr 98 F-98.4 F 70-102 12-30 121-155/74-92 100 Physical Exam: General: NAD, A&Ox3 Lungs: CTA bilaterally Heart: RRR, S1S2 Abd: Soft, non-tender, non-distended Ext: Warm, well-perfused CBCD WBC 11.8 K/mm3 (4.0-10.0) H 12/31/17 05:30 RBC 4.96 M/mm3 (3.60-5.2) 12/31/17 05:30 Hgb 13.6 GM/dL (10.7-15.3) 12/31/17 05:30 Hct 40.4 % (32.4-45.2) 12/31/17 05:30 MCV 81.5 fl (80-96) 12/31/17 05:30 MCHC 33.8 g/dl (32.0-36.0) 12/31/17 05:30 RDW 14.3 % (11.6-15.6) 12/31/17 05:30 Plt Count 111 K/MM3 (134-434) L 12/31/17 05:30 MPV 9.0 fl (7.5-11.1) 12/31/17 05:30 CMP Sodium 161 mmol/L (136-145) H* 12/30/17 15:50 Potassium 3.7 mmol/L (3.5-5.1) 12/31/17 05:30 Chloride 133 mmol/L (98-107) H 12/31/17 05:30 Carbon Dioxide 20 mmol/L (21-32) L 12/31/17 05:30 Anion Gap 8 (8-16) 12/31/17 05:30 BUN 27 mg/dL (7-18) H 12/31/17 05:30 Creatinine 1.8 mg/dL (0.55-1.02) H 12/31/17 05:30 Creat Clearance w eGFR 28.90 (>60) 12/31/17 05:30 Random Glucose 79 mg/dL (74-106) 12/31/17 05:30 Calcium 8.7 mg/dL (8.5-10.1) 12/31/17 05:30 Total Bilirubin 1.0 mg/dL (0.2-1.0) 12/31/17 05:30 AST 22 U/L (15-37) 12/31/17 05:30 ALT 25 U/L (12-78) 12/31/17 05:30 Alkaline Phosphatase 114 U/L (45-117) D 12/31/17 05:30 Total Protein 6.4 g/dl (6.4-8.2) 12/31/17 05:30 Albumin 2.7 g/dl (3.4-5.0) L 12/31/17 05:30 CARDIAC ENZYMES Troponin I < 0.03 ng/ml (0.00-0.06) 12/28/17 09:08 Microbiology 12/28/17 09:08 Blood - Peripheral Venous Blood Culture - Preliminary NO GROWTH OBTAINED AFTER 48 HOURS, INCUBATION TO CONTINUE FOR 3 DAYS. 12/28/17 09:08 Blood - Peripheral Venous Blood Culture - Preliminary NO GROWTH OBTAINED AFTER 48 HOURS, INCUBATION TO CONTINUE FOR 3 DAYS. 12/28/17 09:08 Urine - Urine - Catheterized Urine Culture - Final NO GROWTH OBTAINED Assessment: This is a 57 year old female with PMHx of IDDM, who presented to the ED with altered mental status Plan: 1) DKA - Gap closed this AM, Co2 20 - Will give Levemir 15u now, then discontinue insulin gtt 1 hour later ( discussed with RN) - Diabetic diet - Appreciate endocrinology consult 2) Hypernatremia - Continue fluids for now - Awaiting Na from today - Continue to trend - Appreciate nephrology consult 3) WINTER - Cr continues to improve - 2.7->2.1->1.8 - Continue IV fluids - F/u kidney ultrasound 4) Acute toxic metabolic encephalopathy - Resolved 5) Leukocytosis, hypothermia - On admission; hypothermia resolved, leukocytosis improving - All cultures negative to date - Continue Zosyn per ID, consider discontinuing as cultures negative - Appreciate ID cosnult 6) Thrombocytopenia - 2/2 drug vs. infection? - Continue to trend, Zosyn related? 7) F/E/N: - Diabetic diet - Continue IV fluids - Monitor electrolytes 8) Prophylaxis: - Heparin 5,000u sq tid 9) Dispo: - Requires continued inpatient care CODE STATUS: FULL CODE Visit type - Emergency Visit Emergency Visit: Yes ED Registration Date: 12/28/17 Care time: The patient presented to the Emergency Department on the above date and was hospitalized for further evaluation of their emergent condition. - New Patient This patient is new to me today: Yes Date on this admission: 12/31/17 - Critical Care Critical Care patient: Yes Total Critical Care Time (in minutes): 45 Critical Care Statement: The care of this patient involved high complexity decision making to prevent further life threatening deterioration of the patient 's condition and/or to evaluate & treat vital organ system(s) failure or risk of failure.
[2017-12-31] MEDS ORDERED: NAPH,MB-DB/K PH,MBDB POWDER PACKET PO ONE (08:09)
[2017-12-31 08:38] LABS: SODIUM 161 mmol/L (136-145)
[2017-12-31] MEDS: ONDANSETRON 4 MG/2 ML VIAL IVPUSH PRN (08:54)
[2017-12-31] MEDS ORDERED: ONDANSETRON 4 MG/2 ML VIAL IVPUSH PRN (09:40)
--- NOTE | 2017-12-31 09:41 | PN ---
Progress Note (short form) - Note Progress Note: PULMONARY/CCM Pt seen and examined in the ICU. Anion gap resolved on AM labs. c/o nausea. No abdominal pain. +flatus/BM. Vital Signs Period Temp Pulse Resp BP Sys/Mendiola Pulse Ox Last 24 Hr 98 F-98.4 F 70-102 12-30 121-155/74-92 100-100 Intake & Output 12/28/17 12/29/17 12/30/17 12/31/17 23:59 23:59 23:59 23:59 Intake Total 2150 4071 2960 1302 Output Total 1700 3100 3000 500 Balance 450 971 -40 802 Weight 64.4 kg 63.957 kg 65.544 kg 66.27 kg Gen: NAD at rest Heart: RRR Lung: decreased breath sounds at the bases Abd: soft, nontender Ext: no edema CBC, BMP 12/31/17 05:30 12/31/17 05:30 Active Medications Bisacodyl (Dulcolax -) 5 mg PO DAILY [facility] Last Admin: 12/30/17 16:47 Dose: 5 mg Chlorhexidine Gluconate (Hibiclens For Decolonization -) 1 applic TP HS LUCY Last Admin: 12/30/17 22:22 Dose: 1 applic Dextrose (D50w (Syringe) -) 25 gm IVPUSH PRN PRN PRN Reason: LOW BG Last Admin: 12/31/17 06:40 Dose: 25 gm Heparin Sodium (Porcine) (Heparin -) 5,000 unit SQ TID LUCY Last Admin: 12/31/17 05:49 Dose: 5,000 unit Piperacillin Sod/Tazobactam (Sod 3.375 gm/ Dextrose) 50 mls @ 100 mls/hr IVPB Q8H-IV LUCY; Protocol Last Admin: 12/31/17 09:16 Dose: 100 mls/hr Dextrose (D5w -) 1,000 mls @ 100 mls/hr IV .Q10H LUCY Last Admin: 12/29/17 14:29 Dose: 100 mls/hr Dextrose/Sodium Chloride (D5-1/2ns+40 Meq Kcl -) 40 meq in 1,000 mls @ 150 mls/ hr IV ASDIR LUCY Last Admin: 12/31/17 05:00 Dose: 175 mls/hr Insulin Human Regular 100 (units/ Sodium Chloride) 100 mls @ 4 mls/hr IVPB TITR LUCY; Protocol Last Titration: 12/31/17 07:15 Dose: 4 units/hr, 4 mls/hr Lidocaine/Aluminum/Magnesium/Simeth (Magic Mouthwash *Sjr Formula* -) 5 ml MM Q6HPO LUCY Mupirocin (Bactroban Ointment (For Decolonization) -) 1 applic NS BID LUCY Stop: 01/02/18 21:59 Last Admin: 12/30/17 22:21 Dose: 1 applic Ondansetron HCl (Zofran Injection) 4 mg IVPUSH Q6H PRN PRN Reason: NAUSEA AND/OR VOMITING Last Admin: 12/31/17 08:54 Dose: 4 mg A/P Diabetic Ketoacidosis Acute Kidney Injury Metabolic Acidosis Hypernatremia - start long acting insulin - d/c insulin gtt - continue IVF, decrease rate - monitor urine output, creatinine - replete lytes - d/c antibiotics if cultures negative - DVT prophylaxis - continue ICU monitoring while on insulin gtt critical care time spent in reviewing chart, evaluating patient and formulating plan 35 min
[2017-12-31] MEDS ORDERED: POTASSIUM PHOSPHATE 20 MM in DEXTROSE 5%-WATER - 250 ML IVPB ONE (11:00)
[2017-12-31] MEDS: MUPIROCIN 2% TOPICAL OINTMENT FOR DECOLONIZATION NS SCH ×2 (12:17→21:32)
[2017-12-31] MEDS ORDERED: D5-1/2NS+40 MEQ KCL - 40 MEQ/1,000 ML INFUS.BAG IV SCH (12:21)
[2017-12-31] MEDS: INSULIN SLIDING SCALE (NOVOLOG) 1 VIAL SQ SCH ×3 (12:23→21:36)
--- NOTE | 2017-12-31 13:01 | PN ---
Progress Note (short form) - Note Progress Note: Feels better Tolerating food Off Insulin drip Vital Signs Period Temp Pulse Resp BP Sys/Mendiola Pulse Ox Last 24 Hr 98 F-98.4 F 70-101 12-22 121-155/74-92 100-100 PE: AOx3 Neck: Supple, No JVD HEENT: PERRL,EOMI Lungs: CTA CVS: S1S2 Abd: Benign Ext: No edema Neuro: No focal deficit CMP Sodium 161 mmol/L (136-145) H* 12/31/17 05:30 Potassium 3.7 mmol/L (3.5-5.1) 12/31/17 05:30 Chloride 133 mmol/L (98-107) H 12/31/17 05:30 Carbon Dioxide 20 mmol/L (21-32) L 12/31/17 05:30 Anion Gap 8 (8-16) 12/31/17 05:30 BUN 27 mg/dL (7-18) H 12/31/17 05:30 Creatinine 1.8 mg/dL (0.55-1.02) H 12/31/17 05:30 Creat Clearance w eGFR 28.90 (>60) 12/31/17 05:30 POC Glucometer 150.55087 UNITS (80-120) 12/31/17 10:48 Random Glucose 79 mg/dL (74-106) 12/31/17 05:30 Hemoglobin A1c % 12.5 % (4.8-6.0) H 12/29/17 08:45 Lactic Acid 1.8 mmol/L (0.0-2.0) 12/28/17 21:25 Calcium 8.7 mg/dL (8.5-10.1) 12/31/17 05:30 Phosphorus 1.8 mg/dL (2.5-4.9) L 12/31/17 05:30 Magnesium 2.1 mg/dL (1.8-2.4) 12/31/17 05:30 Total Bilirubin 1.0 mg/dL (0.2-1.0) 12/31/17 05:30 AST 22 U/L (15-37) 12/31/17 05:30 ALT 25 U/L (12-78) 12/31/17 05:30 Alkaline Phosphatase 114 U/L (45-117) D 12/31/17 05:30 Troponin I < 0.03 ng/ml (0.00-0.06) 12/28/17 09:08 Total Protein 6.4 g/dl (6.4-8.2) 12/31/17 05:30 Albumin 2.7 g/dl (3.4-5.0) L 12/31/17 05:30 Triglycerides 34 mg/dL (35-160) L 12/29/17 08:45 Cholesterol 160 mg/dL (50-200) 12/29/17 08:45 Total LDL Cholesterol 99 mg/dL (5-100) 12/29/17 08:45 HDL Cholesterol 68 mg/dL (40-60) H 12/29/17 08:45 Current Medications Generic Name Dose Route Start Last Admin Trade Name Freq PRN Reason Stop Dose Admin Bisacodyl 5 mg 12/30/17 14:45 12/30/17 16:47 Dulcolax - PO 5 mg DAILY LUCY Administration Chlorhexidine Gluconate 1 applic 12/28/17 22:00 12/30/17 22:22 Hibiclens For Decolonization - TP 1 applic HS LUCY Administration Dextrose 25 gm 12/30/17 21:53 12/31/17 06:40 D50w (Syringe) - IVPUSH 25 gm PRN PRN Administration LOW BG Heparin Sodium (Porcine) 5,000 unit 12/28/17 22:00 12/31/17 05:49 Heparin - SQ 5,000 unit TID LUCY Administration Piperacillin Sod/Tazobactam 50 mls @ 100 mls/hr 12/29/17 02:00 12/31/17 09:16 Sod 3.375 gm/ Dextrose IVPB 100 mls/hr Q8H-IV LUCY Administration Protocol Potassium Phosphate 20 mm/ 256.6667 mls @ 64.16 mls/hr 12/31/17 11:00 12:14 Dextrose IVPB 12/31/17 15:00 64.16 mls/hr ONCE ONE Administration 20 MM/4 HR Dextrose/Sodium Chloride 40 meq in 1,000 mls @ 100 mls/hr 12/31/17 12:21 10:00 D5-1/2ns+40 Meq Kcl - IV 100 mls/hr ASDIR LUCY Administration Insulin Aspart 1 vial 12/31/17 11:00 12/31/17 12:23 Novolog Vial Sliding Scale - SQ 2 units ACHS LUCY Administration Protocol Lidocaine/Aluminum/Magnesium/Simeth 5 ml 12/31/17 18:30 Magic Mouthwash *Sjr Formula* - MM Q6HPO LUCY Mupirocin 1 applic 12/28/17 22:00 12/31/17 12:17 Bactroban Ointment (For Decolonization) - NS 01/02/18 21:59 1 applic BID LUCY Administration Ondansetron HCl 8 mg 12/31/17 09:40 Zofran Injection IVPUSH Q8H PRN NAUSEA AND/OR VOMITING AP: T1DM DKA Hypernatremia WINTER IV hydration: on D5 1/2NS with 40 KCl at 100ml/hr Levemir 15 units daily, Increase as necessary depending on food intake Novolog ACHS Increase D5 rate if blood sugar drops to <120 Electrolyte replacement as necessary.
[2017-12-31] MEDS: BISACODYL 5 MG TABLET.DR (FP) PO SCH (14:39)
--- NOTE | 2017-12-31 14:49 | PN ---
Progress Note, Physician History of Present Illness: Pt seen and examined at bedside. She is out of bed to chair. She says that she feels better today. She denies shortness of breath. - Current Medication List Current Medications: Active Medications Bisacodyl (Dulcolax -) 5 mg PO DAILY [facility] Last Admin: 12/31/17 14:39 Dose: Not Given Chlorhexidine Gluconate (Hibiclens For Decolonization -) 1 applic TP HS [facility] Last Admin: 12/30/17 22:22 Dose: 1 applic Dextrose (D50w (Syringe) -) 25 gm IVPUSH PRN PRN PRN Reason: LOW BG Last Admin: 12/31/17 06:40 Dose: 25 gm Heparin Sodium (Porcine) (Heparin -) 5,000 unit SQ TID [facility] Last Admin: 12/31/17 05:49 Dose: 5,000 unit Piperacillin Sod/Tazobactam (Sod 3.375 gm/ Dextrose) 50 mls @ 100 mls/hr IVPB Q8H-IV [facility]; Protocol Last Admin: 12/31/17 09:16 Dose: 100 mls/hr Potassium Phosphate 20 mm/ (Dextrose) 256.6667 mls @ 64.16 mls/hr IVPB ONCE ONE Stop: 12/31/17 15:00 Last Admin: 12/31/17 12:14 Dose: 64.16 mls/hr Dextrose/Sodium Chloride (D5-1/2ns+40 Meq Kcl -) 40 meq in 1,000 mls @ 100 mls/ hr IV ASDIR [facility] Last Admin: 12/31/17 10:00 Dose: 100 mls/hr Insulin Aspart (Novolog Vial Sliding Scale -) 1 vial SQ ACHS [facility]; Protocol Last Admin: 12/31/17 12:23 Dose: 2 units Lidocaine/Aluminum/Magnesium/Simeth (Magic Mouthwash *Sjr Formula* -) 5 ml MM Q6HPO [facility] Mupirocin (Bactroban Ointment (For Decolonization) -) 1 applic NS BID [facility] Stop: 01/02/18 21:59 Last Admin: 12/31/17 12:17 Dose: 1 applic Ondansetron HCl (Zofran Injection) 8 mg IVPUSH Q8H PRN PRN Reason: NAUSEA AND/OR VOMITING - Objective Vital Signs: Vital Signs Temperature 98 F 12/31/17 06:00 Pulse Rate 72 12/31/17 08:00 Respiratory Rate 18 12/31/17 08:00 Blood Pressure 143/78 12/31/17 08:00 O2 Sat by Pulse Oximetry (%) 100 12/31/17 08:11 Constitutional: Yes: Calm Eyes: Yes: Conjunctiva Clear Cardiovascular: Yes: S1, S2 Respiratory: Yes: CTA Bilaterally Gastrointestinal: Yes: Soft Genitourinary: Yes: Brantley Present Musculoskeletal: Yes: WNL Edema: No Neurological: Yes: Oriented Psychiatric: Yes: Oriented Labs: CBC, BMP 12/31/17 05:30 12/31/17 05:30 Problem List - Problems (1) WINTER (acute kidney injury) Code(s): N17.9 - ACUTE KIDNEY FAILURE, UNSPECIFIED (2) DKA (diabetic ketoacidoses) Code(s): E13.10 - OTH DIABETES MELLITUS WITH KETOACIDOSIS WITHOUT COMA Qualifiers: Diabetes mellitus type: type 1 Diabetes mellitus complication detail: without coma Qualified Code(s): E10.10 - Type 1 diabetes mellitus with ketoacidosis without coma (3) Sepsis Code(s): A41.9 - SEPSIS, UNSPECIFIED ORGANISM Qualifiers: Sepsis type: sepsis due to unspecified organism Qualified Code(s): A41.9 - Sepsis, unspecified organism (4) Hypernatremia Code(s): E87.0 - HYPEROSMOLALITY AND HYPERNATREMIA Assessment/Plan Current Medications Generic Name Dose Route Start Last Admin Trade Name Freq PRN Reason Stop Dose Admin Bisacodyl 5 mg 12/30/17 14:45 12/31/17 14:39 Dulcolax - PO Not Given DAILY [facility] Chlorhexidine Gluconate 1 applic 12/28/17 22:00 12/30/17 22:22 Hibiclens For Decolonization - TP 1 applic HS [facility] Administration Dextrose 25 gm 12/30/17 21:53 12/31/17 06:40 D50w (Syringe) - IVPUSH 25 gm PRN PRN Administration LOW BG Heparin Sodium (Porcine) 5,000 unit 12/28/17 22:00 12/31/17 05:49 Heparin - SQ 5,000 unit TID [facility] Administration Piperacillin Sod/Tazobactam 50 mls @ 100 mls/hr 12/29/17 02:00 12/31/17 09:16 Sod 3.375 gm/ Dextrose IVPB 100 mls/hr Q8H-IV [facility] Administration Protocol Potassium Phosphate 20 mm/ 256.6667 mls @ 64.16 mls/hr 12/31/17 11:00 12:14 Dextrose IVPB 12/31/17 15:00 64.16 mls/hr ONCE ONE Administration 20 MM/4 HR Dextrose/Sodium Chloride 40 meq in 1,000 mls @ 100 mls/hr 12/31/17 12:21 10:00 D5-1/2ns+40 Meq Kcl - IV 100 mls/hr ASDIR [facility] Administration Insulin Aspart 1 vial 12/31/17 11:00 12/31/17 12:23 Novolog Vial Sliding Scale - SQ 2 units ACHS [facility] Administration Protocol Lidocaine/Aluminum/Magnesium/Simeth 5 ml 12/31/17 18:30 Magic Mouthwash *Sjr Formula* - MM Q6HPO [facility] Mupirocin 1 applic 12/28/17 22:00 12/31/17 12:17 Bactroban Ointment (For Decolonization) - NS 01/02/18 21:59 1 applic BID [facility] Administration Ondansetron HCl 8 mg 12/31/17 09:40 Zofran Injection IVPUSH Q8H PRN NAUSEA AND/OR VOMITING Laboratory Tests 12/30/17 12/31/17 15:50 05:30 Sodium 161 H* Potassium 3.7 Phosphorus 1.8 L Magnesium 2.1 CORTEZ M-Vamshi Pending FERMIN Screen Pending c-ANCA Pending Proteinase 3 (PR3) Pending p-ANCA Pending Atypical p-ANCA Pending Myeloperoxidase Ab Pending Double Strand DNA Ab Pending Glomerular Base Memb Ab Pending Impression 1. WINTER 2. hypernatremia 3. DKA 4. metabolic acidosis - check abg 5. DM 6. change in mental status 7. sepsis 8. leukocytosis 9. hypophosphatemia Plan - change fluids from d51/2 to d5w at same rate - encourage water intake - monitor sodium levels - renal function is improving - follow renal workup - discussed with ICU team - will follow Dr Vergara
[2017-12-31] MEDS ORDERED: DEXTROSE 5%-WATER - 1,000 ML with POTASSIUM CHLORIDE 20 MEQ IVPB SCH (15:00)
--- NOTE | 2017-12-31 16:20 | PN ---
Progress Note, Physician History of Present Illness: Pt currently feels better. Had some nausea but no abd tenderness/vomiting/ diarrhea. Tmax 99.2F. Denies shortness of breath/cough, dysuria. Off Insulin drip again. - Current Medication List Current Medications: Active Medications Bisacodyl (Dulcolax -) 5 mg PO DAILY [facility] Last Admin: 12/31/17 14:39 Dose: Not Given Chlorhexidine Gluconate (Hibiclens For Decolonization -) 1 applic TP HS [facility] Last Admin: 12/30/17 22:22 Dose: 1 applic Dextrose (D50w (Syringe) -) 25 gm IVPUSH PRN PRN PRN Reason: LOW BG Last Admin: 12/31/17 06:40 Dose: 25 gm Heparin Sodium (Porcine) (Heparin -) 5,000 unit SQ TID [facility] Last Admin: 12/31/17 14:57 Dose: 5,000 unit Piperacillin Sod/Tazobactam (Sod 3.375 gm/ Dextrose) 50 mls @ 100 mls/hr IVPB Q8H-IV [facility]; Protocol Last Admin: 12/31/17 09:16 Dose: 100 mls/hr Potassium Chloride 20 meq/ (Dextrose) 1,010 mls @ 100 mls/hr IVPB .Q10H [facility] Insulin Aspart (Novolog Vial Sliding Scale -) 1 vial SQ ACHS [facility]; Protocol Last Admin: 12/31/17 12:23 Dose: 2 units Lidocaine/Aluminum/Magnesium/Simeth (Magic Mouthwash *Sjr Formula* -) 5 ml MM Q6HPO [facility] Mupirocin (Bactroban Ointment (For Decolonization) -) 1 applic NS BID [facility] Stop: 01/02/18 21:59 Last Admin: 12/31/17 12:17 Dose: 1 applic Ondansetron HCl (Zofran Injection) 8 mg IVPUSH Q8H PRN PRN Reason: NAUSEA AND/OR VOMITING - Objective Vital Signs: Vital Signs Temperature 98 F 12/31/17 06:00 Pulse Rate 72 12/31/17 08:00 Respiratory Rate 18 12/31/17 08:00 Blood Pressure 143/78 12/31/17 08:00 O2 Sat by Pulse Oximetry (%) 100 12/31/17 08:11 Constitutional: Yes: No Distress, Calm Cardiovascular: Yes: Tachycardia Respiratory: Yes: CTA Bilaterally Gastrointestinal: Yes: Normal Bowel Sounds, Soft Extremities: Yes: WNL Neurological: Yes: Alert Labs: CBC, BMP 12/31/17 05:30 12/31/17 05:30 Problem List - Problems (1) WINTER (acute kidney injury) Code(s): N17.9 - ACUTE KIDNEY FAILURE, UNSPECIFIED (2) DKA (diabetic ketoacidoses) Code(s): E13.10 - OTH DIABETES MELLITUS WITH KETOACIDOSIS WITHOUT COMA Qualifiers: Diabetes mellitus type: type 1 Diabetes mellitus complication detail: without coma Qualified Code(s): E10.10 - Type 1 diabetes mellitus with ketoacidosis without coma (3) Sepsis Code(s): A41.9 - SEPSIS, UNSPECIFIED ORGANISM Qualifiers: Sepsis type: sepsis due to unspecified organism Qualified Code(s): A41.9 - Sepsis, unspecified organism Assessment/Plan 57 y.o. female with PMH of Uncontrolled DM with hospitalizations for DKA, CKD admitted with AMS, blood glucose >500, leukocytosis, lactic acidosis suggesting sepsis. Blood/urine cultures negative, CXR not suggestive of PNA but hypothermia /leukocytosis resolving while on empiric IV antibiotics DKA Hypothermia - resolved Leukocytosis/Sepsis WINTER Metabolic acidosis - wbc decreasing, monitor temps -will consider d/c antibiotics if continues to improve, continue for now - now off insulin drip - nephrology following - pt appears alert, without distress at this time rest of management per ICU
[2017-12-31] MEDS: MAG HYDROX/ALH/SMC/DPHA/LIDO 240 ML MOUTHWASH MM SCH (17:57)
[2017-12-31] MEDS: CHLORHEXIDINE GLUCONATE 4% CLEANSER FOR DECOLONIZATION TP SCH (21:32)
[2018-01-01] MEDS ORDERED: POTASSIUM CHLORIDE 20 MEQ in DEXTROSE 5%-WATER - 1,000 ML IVPB SCH (00:07)
[2018-01-01] MEDS ORDERED: PIPERACILLIN/TAZOBACTAM 3.375 GM VIAL IVPB ONE ×4 (00:58→21:41)
[2018-01-01] MEDS ORDERED: DEXTROSE 5%-WATER - 50 ML IVPB ONE ×4 (00:58→21:42)
[2018-01-01] MEDS: POTASSIUM CHLORIDE 20 MEQ in DEXTROSE 5%-WATER - 1,000 ML IVPB SCH (01:21)
[2018-01-01] MEDS: PIPERACILLIN/TAZOB 3.375 GM 3.375 GM in DEXTROSE 5%-WATER - 50 ML IVPB SCH ×3 (01:22→17:21)
[2018-01-01] MEDS: MAG HYDROX/ALH/SMC/DPHA/LIDO 240 ML MOUTHWASH MM SCH ×3 (06:12→17:21)
[2018-01-01] MEDS: HEPARIN NA (PORCINE) 5,000 UNITS/ML 1ML VIAL SQ SCH ×3 (06:12→21:45)
[2018-01-01] MEDS: INSULIN (LEVEMIR) 100 UNITS/ML UNITS SQ SCH (06:12)
[2018-01-01] MEDS: INSULIN SLIDING SCALE (NOVOLOG) 1 VIAL SQ SCH ×4 (06:13→21:45)
[2018-01-01 06:14] LABS: BASO % 0.3 % (0-2.0); EOS % 0.4 % (0-4.5); HEMATOCRIT 35.4 % (32.4-45.2); HEMOGLOBIN 11.9 GM/dL (10.7-15.3); LYMPH % 38.5 % (8-40); MCH 27.4 pg (25.7-33.7); MCHC 33.6 g/dl (32.0-36.0); MEAN CELL VOLUME 81.5 fl (80-96); MONO % 7.7 % (3.8-10.2); NEUT % 53.1 % (42.8-82.8); RBC 4.35 M/mm3 (3.60-5.2); RDW 14.3 % (11.6-15.6); WHITE BLOOD COUNT 5.9 K/mm3 (4.0-10.0)
[2018-01-01 06:39] LABS: ALBUMIN 2.2 g/dl (3.4-5.0); ANION GAP 8 (8-16); BLOOD UREA NITROGEN 18 mg/dL (7-18); CALCIUM 8.2 mg/dL (8.5-10.1); CHLORIDE 121 mmol/L (98-107); CO2 21 mmol/L (21-32); CREATININE 1.3 mg/dL (0.55-1.02); GLUCOSE,RANDOM 201 mg/dL (74-106); MAGNESIUM 1.7 mg/dL (1.8-2.4); PHOSPHOROUS 3.1 mg/dL (2.5-4.9); POTASSIUM 3.5 mmol/L (3.5-5.1); SGOT/AST 21 U/L (15-37); SGPT/ALT 20 U/L (12-78); SODIUM 150 mmol/L (136-145)
[2018-01-01 06:41] LABS: ALK PHOS 89 U/L (45-117); BILIRUBIN,TOTAL 1.1 mg/dL (0.2-1.0); TOT PROT 5.2 g/dl (6.4-8.2)
[2018-01-01] MEDS ORDERED: MAGNESIUM 1GM/D5W 100ML - 100 ML IVPB IVPB ONE (07:52)
[2018-01-01 09:02] LABS: MEAN PLT VOLUME 9.8 fl (7.5-11.1); PLATELET COUNT 81 K/MM3 (134-434)
[2018-01-01] MEDS: MUPIROCIN 2% TOPICAL OINTMENT FOR DECOLONIZATION NS SCH ×2 (09:57→21:08)
[2018-01-01] MEDS: BISACODYL 5 MG TABLET.DR (FP) PO SCH (09:57)
[2018-01-01] MEDS ORDERED: BISACODYL 5 MG TABLET.DR (FP) PO PRN (11:09)
--- NOTE | 2018-01-01 13:12 | PN ---
Teaching Attending Note Name of Resident: Johnathon Jordan ATTENDING PHYSICIAN STATEMENT I saw and evaluated the patient. I reviewed the resident's note and discussed the case with the resident. I agree with the resident's findings and plan as documented. SUBJECTIVE: Pt seen and examined in the ICU. Anion gap remains closed off insulin gtt. Nausea improving. OBJECTIVE: Vital Signs Period Temp Pulse Resp BP Sys/Mendiola Pulse Ox Last 24 Hr 97.5 F-98.3 F 65-82 12-22 115-132/69-82 100-100 Intake & Output 12/29/17 12/30/17 12/31/17 01/01/18 23:59 23:59 23:59 23:59 Intake Total 4071 2960 4152 920 Output Total 3100 3000 1650 350 Balance 971 -40 2502 570 Weight 63.957 kg 65.544 kg 66.27 kg 65.862 kg Gen: NAD in chair Heart: RRR Lung: decreased breath sounds at the bases Abd: soft, nontender Ext: no edema CBC, BMP 01/01/18 05:30 01/01/18 05:30 Active Medications Bisacodyl (Dulcolax -) 5 mg PO DAILY PRN PRN Reason: CONSTIPATION Chlorhexidine Gluconate (Hibiclens For Decolonization -) 1 applic TP HS [facility] Last Admin: 12/31/17 21:32 Dose: 1 applic Dextrose (D50w (Syringe) -) 25 gm IVPUSH PRN PRN PRN Reason: LOW BG Last Admin: 12/31/17 06:40 Dose: 25 gm Heparin Sodium (Porcine) (Heparin -) 5,000 unit SQ TID [facility] Last Admin: 01/01/18 06:12 Dose: 5,000 unit Piperacillin Sod/Tazobactam (Sod 3.375 gm/ Dextrose) 50 mls @ 100 mls/hr IVPB Q8H-IV [facility]; Protocol Last Admin: 01/01/18 09:57 Dose: 100 mls/hr Potassium Chloride 20 meq/ (Dextrose) 1,010 mls @ 100 mls/hr IVPB Q10H [facility] Last Admin: 01/01/18 01:21 Dose: 100 mls/hr Insulin Aspart (Novolog Vial Sliding Scale -) 1 vial SQ ACHS [facility]; Protocol Last Admin: 01/01/18 11:43 Dose: 2 units Insulin Detemir (Levemir Vial) 15 units SQ ACBK [facility] Last Admin: 01/01/18 06:12 Dose: 15 units Lidocaine/Aluminum/Magnesium/Simeth (Magic Mouthwash *Sjr Formula* -) 5 ml MM Q6HPO [facility] Last Admin: 01/01/18 12:06 Dose: Not Given Mupirocin (Bactroban Ointment (For Decolonization) -) 1 applic NS BID [facility] Stop: 01/02/18 21:59 Last Admin: 01/01/18 09:57 Dose: 1 applic Ondansetron HCl (Zofran Injection) 8 mg IVPUSH Q8H PRN PRN Reason: NAUSEA AND/OR VOMITING ASSESSMENT AND PLAN: Diabetic Ketoacidosis Acute Kidney Injury Metabolic Acidosis Hypernatremia - glucose control - continue IVF - monitor urine output, creatinine - can d/c antibiotics - DVT prophylaxis - can monitor on floor
--- NOTE | 2018-01-01 13:13 | PN ---
Progress Note (short form) - Note Progress Note: Feels better Apetite better Vital Signs Period Temp Pulse Resp BP Sys/Mendiola Pulse Ox Last 24 Hr 98 F-98.4 F 70-101 12-22 121-155/74-92 100-100 PE: AOx3 Neck: Supple, No JVD HEENT: PERRL,EOMI Lungs: CTA CVS: S1S2 Abd: Benign Ext: No edema Neuro: No focal deficit CMP Sodium 150 mmol/L (136-145) H 01/01/18 05:30 Potassium 3.5 mmol/L (3.5-5.1) 01/01/18 05:30 Chloride 121 mmol/L (98-107) H 01/01/18 05:30 Carbon Dioxide 21 mmol/L (21-32) 01/01/18 05:30 Anion Gap 8 (8-16) 01/01/18 05:30 BUN 18 mg/dL (7-18) 01/01/18 05:30 Creatinine 1.3 mg/dL (0.55-1.02) H 01/01/18 05:30 Creat Clearance w eGFR 42.07 (>60) 01/01/18 05:30 POC Glucometer 229.91322 UNITS (80-120) 01/01/18 05:47 Random Glucose 201 mg/dL (74-106) H 01/01/18 05:30 Hemoglobin A1c % 12.5 % (4.8-6.0) H 12/29/17 08:45 Lactic Acid 1.8 mmol/L (0.0-2.0) 12/28/17 21:25 Calcium 8.2 mg/dL (8.5-10.1) L 01/01/18 05:30 Phosphorus 3.1 mg/dL (2.5-4.9) 01/01/18 05:30 Magnesium 1.7 mg/dL (1.8-2.4) L 01/01/18 05:30 Total Bilirubin 1.1 mg/dL (0.2-1.0) H 01/01/18 05:30 AST 21 U/L (15-37) 01/01/18 05:30 ALT 20 U/L (12-78) 01/01/18 05:30 Alkaline Phosphatase 89 U/L (45-117) D 01/01/18 05:30 Troponin I < 0.03 ng/ml (0.00-0.06) 12/28/17 09:08 Total Protein 5.2 g/dl (6.4-8.2) L 01/01/18 05:30 Albumin 2.2 g/dl (3.4-5.0) L 01/01/18 05:30 Triglycerides 34 mg/dL (35-160) L 12/29/17 08:45 Cholesterol 160 mg/dL (50-200) 12/29/17 08:45 Total LDL Cholesterol 99 mg/dL (5-100) 12/29/17 08:45 HDL Cholesterol 68 mg/dL (40-60) H 12/29/17 08:45 Current Medications Generic Name Dose Route Start Last Admin Trade Name Freq PRN Reason Stop Dose Admin Bisacodyl 5 mg 01/01/18 11:09 Dulcolax - PO DAILY PRN CONSTIPATION Chlorhexidine Gluconate 1 applic 12/28/17 22:00 12/31/17 21:32 Hibiclens For Decolonization - TP 1 applic HS [facility] Administration Dextrose 25 gm 12/30/17 21:53 12/31/17 06:40 D50w (Syringe) - IVPUSH 25 gm PRN PRN Administration LOW BG Heparin Sodium (Porcine) 5,000 unit 12/28/17 22:00 01/01/18 06:12 Heparin - SQ 5,000 unit TID [facility] Administration Piperacillin Sod/Tazobactam 50 mls @ 100 mls/hr 12/29/17 02:00 01/01/18 09:57 Sod 3.375 gm/ Dextrose IVPB 100 mls/hr Q8H-IV [facility] Administration Protocol Potassium Chloride 20 meq/ 1,010 mls @ 100 mls/hr 01/01/18 00:30 01/01/18 01: 21 Dextrose IVPB 100 mls/hr Q10H [facility] Administration Insulin Aspart 1 vial 12/31/17 11:00 01/01/18 11:43 Novolog Vial Sliding Scale - SQ 2 units ACHS [facility] Administration Protocol Insulin Detemir 15 units 01/01/18 07:00 01/01/18 06:12 Levemir Vial SQ 15 units ACBK [facility] Administration Lidocaine/Aluminum/Magnesium/Simeth 5 ml 12/31/17 18:30 01/01/18 12:06 Magic Mouthwash *Sjr Formula* - MM Not Given Q6HPO [facility] Mupirocin 1 applic 12/28/17 22:00 01/01/18 09:57 Bactroban Ointment (For Decolonization) - NS 01/02/18 21:59 1 applic BID [facility] Administration Ondansetron HCl 8 mg 12/31/17 09:40 Zofran Injection IVPUSH Q8H PRN NAUSEA AND/OR VOMITING AP: T1DM DKA Hypernatremia WINTER IV hydration: on D5 1/2NS with 40 KCl at 100ml/hr, Improving blood sugar Improving renal function and sodium level Levemir 15 units daily, Will increase as necessary depending on food intake Novolog ACHS Increase D5 rate if blood sugar drops to <120 Electrolyte replacement as necessary.
--- NOTE | 2018-01-01 13:26 | PN ---
Progress Note, Physician History of Present Illness: looking much better weakness back to herself wbc to normal off of the drip - Current Medication List Current Medications: Active Medications Bisacodyl (Dulcolax -) 5 mg PO DAILY PRN PRN Reason: CONSTIPATION Chlorhexidine Gluconate (Hibiclens For Decolonization -) 1 applic TP HS [facility] Last Admin: 12/31/17 21:32 Dose: 1 applic Dextrose (D50w (Syringe) -) 25 gm IVPUSH PRN PRN PRN Reason: LOW BG Last Admin: 12/31/17 06:40 Dose: 25 gm Heparin Sodium (Porcine) (Heparin -) 5,000 unit SQ TID [facility] Last Admin: 01/01/18 06:12 Dose: 5,000 unit Piperacillin Sod/Tazobactam (Sod 3.375 gm/ Dextrose) 50 mls @ 100 mls/hr IVPB Q8H-IV [facility]; Protocol Last Admin: 01/01/18 09:57 Dose: 100 mls/hr Potassium Chloride 20 meq/ (Dextrose) 1,010 mls @ 100 mls/hr IVPB Q10H [facility] Last Admin: 01/01/18 01:21 Dose: 100 mls/hr Insulin Aspart (Novolog Vial Sliding Scale -) 1 vial SQ ACHS [facility]; Protocol Last Admin: 01/01/18 11:43 Dose: 2 units Insulin Detemir (Levemir Vial) 15 units SQ ACBK [facility] Last Admin: 01/01/18 06:12 Dose: 15 units Lidocaine/Aluminum/Magnesium/Simeth (Magic Mouthwash *Sjr Formula* -) 5 ml MM Q6HPO [facility] Last Admin: 01/01/18 12:06 Dose: Not Given Mupirocin (Bactroban Ointment (For Decolonization) -) 1 applic NS BID [facility] Stop: 01/02/18 21:59 Last Admin: 01/01/18 09:57 Dose: 1 applic Ondansetron HCl (Zofran Injection) 8 mg IVPUSH Q8H PRN PRN Reason: NAUSEA AND/OR VOMITING - Objective Vital Signs: Vital Signs Temperature 97.8 F 01/01/18 10:00 Pulse Rate 65 01/01/18 10:00 Respiratory Rate 18 01/01/18 10:00 Blood Pressure 125/74 01/01/18 10:00 O2 Sat by Pulse Oximetry (%) 100 01/01/18 09:00 Constitutional: Yes: No Distress, Calm Cardiovascular: Yes: Regular Rate and Rhythm Respiratory: Yes: Regular, CTA Bilaterally Gastrointestinal: Yes: Normal Bowel Sounds, Soft Musculoskeletal: Yes: WNL Extremities: Yes: WNL Neurological: Yes: Alert, Oriented Psychiatric: Yes: Alert, Oriented Labs: CBC, BMP 01/01/18 05:30 01/01/18 05:30 Assessment/Plan Problem List - Problems (1) DKA (diabetic ketoacidoses) (2) Sepsis 3 ams electrolyte abn lactic acidosis dehydration leukocytosis plan treatment of dka as per icu continue abx will stop abx tomorrow if patient is stbale hydration electrolyte mgmt monitor wbc rest as per the team sugar management cc time 40 min
--- NOTE | 2018-01-01 14:19 | PN ---
Physical Exam: SUBJECTIVE: Patient seen and examined. Offers no complaints. Denies SOB, chest pain, dizziness. Maintaining saturation on Room air. OBJECTIVE: Vital Signs Period Temp Pulse Resp BP Sys/Mendiola Pulse Ox Last 24 Hr 97.5 F-98.3 F 65-82 12-22 115-132/69-82 100-100 GENERAL: The patient is awake, alert, and fully oriented, in no acute distress. EYES: PERRL, extraocular movements intact, sclera anicteric ENT:oropharynx clear without exudates, dry mucous membranes. NECK: supple. LUNGS: Breath sounds equal, clear to auscultation bilaterally HEART: Regular rate and rhythm, S1, S2 without murmur, rub or gallop. ABDOMEN: Soft, nontender, nondistended, normoactive bowel sounds EXTREMITIES: 2+ pulses, no edema. NEUROLOGICAL: Cranial nerves II through XII grossly intact PSYCH: Normal mood, normal affect. Laboratory Results - last 24 hr 12/30/17 12/30/17 12/30/17 06:00 09:03 10:04 WBC RBC Hgb Hct MCV MCH MCHC RDW Plt Count MPV Absolute Neuts (auto) Neutrophils % Lymphocytes % Monocytes % Eosinophils % Basophils % Nucleated RBC % Sodium Potassium Chloride Carbon Dioxide Anion Gap BUN Creatinine Creat Clearance w eGFR POC Glucometer > 400 > 400 > 400 Random Glucose Calcium Phosphorus Magnesium Total Bilirubin AST ALT Alkaline Phosphatase Total Protein Albumin 12/30/17 12/31/17 12/31/17 11:56 12:20 16:54 WBC RBC Hgb Hct MCV MCH MCHC RDW Plt Count MPV Absolute Neuts (auto) Neutrophils % Lymphocytes % Monocytes % Eosinophils % Basophils % Nucleated RBC % Sodium Potassium Chloride Carbon Dioxide Anion Gap BUN Creatinine Creat Clearance w eGFR POC Glucometer > 400 191.84773 259.64202 Random Glucose Calcium Phosphorus Magnesium Total Bilirubin AST ALT Alkaline Phosphatase Total Protein Albumin 12/31/17 01/01/18 01/01/18 21:35 05:30 05:30 WBC 5.9 RBC 4.35 Hgb 11.9 Hct 35.4 MCV 81.5 MCH 27.4 MCHC 33.6 RDW 14.3 Plt Count 81 L D MPV 9.8 Absolute Neuts (auto) 3.1 Neutrophils % 53.1 D Lymphocytes % 38.5 D Monocytes % 7.7 Eosinophils % 0.4 Basophils % 0.3 Nucleated RBC % 0 Sodium 150 H Potassium 3.5 Chloride 121 H Carbon Dioxide 21 Anion Gap 8 BUN 18 Creatinine 1.3 H Creat Clearance w eGFR 42.07 POC Glucometer 141.48423 Random Glucose 201 H Calcium 8.2 L Phosphorus 3.1 Magnesium 1.7 L Total Bilirubin 1.1 H AST 21 ALT 20 Alkaline Phosphatase 89 D Total Protein 5.2 L Albumin 2.2 L 01/01/18 05:47 WBC RBC Hgb Hct MCV MCH MCHC RDW Plt Count MPV Absolute Neuts (auto) Neutrophils % Lymphocytes % Monocytes % Eosinophils % Basophils % Nucleated RBC % Sodium Potassium Chloride Carbon Dioxide Anion Gap BUN Creatinine Creat Clearance w eGFR POC Glucometer 229.38227 Random Glucose Calcium Phosphorus Magnesium Total Bilirubin AST ALT Alkaline Phosphatase Total Protein Albumin Active Medications Generic Name Dose Route Start Last Admin Trade Name Freq PRN Reason Stop Dose Admin Bisacodyl 5 mg 01/01/18 11:09 Dulcolax - PO DAILY PRN CONSTIPATION Chlorhexidine Gluconate 1 applic 12/28/17 22:00 12/31/17 21:32 Hibiclens For Decolonization - TP 1 applic HS [facility] Administration Dextrose 25 gm 12/30/17 21:53 12/31/17 06:40 D50w (Syringe) - IVPUSH 25 gm PRN PRN Administration LOW BG Heparin Sodium (Porcine) 5,000 unit 12/28/17 22:00 01/01/18 06:12 Heparin - SQ 5,000 unit TID [facility] Administration Piperacillin Sod/Tazobactam 50 mls @ 100 mls/hr 12/29/17 02:00 01/01/18 09:57 Sod 3.375 gm/ Dextrose IVPB 100 mls/hr Q8H-IV [facility] Administration Protocol Insulin Aspart 1 vial 12/31/17 11:00 01/01/18 11:43 Novolog Vial Sliding Scale - SQ 2 units ACHS [facility] Administration Protocol Insulin Detemir 15 units 01/01/18 07:00 01/01/18 06:12 Levemir Vial SQ 15 units ACBK [facility] Administration Lidocaine/Aluminum/Magnesium/Simeth 5 ml 12/31/17 18:30 01/01/18 12:06 Magic Mouthwash *Sjr Formula* - MM Not Given Q6HPO [facility] Mupirocin 1 applic 12/28/17 22:00 01/01/18 09:57 Bactroban Ointment (For Decolonization) - NS 01/02/18 21:59 1 applic BID [facility] Administration Ondansetron HCl 8 mg 12/31/17 09:40 Zofran Injection IVPUSH Q8H PRN NAUSEA AND/OR VOMITING ASSESSMENT/PLAN: ENDOCRINE #DKA -resolved -AG closed -Off insulin drip -Now on long acting insulin -Hgb A1c 12.5 -Follow endocrine reccs #ARF -improving -cr now 1.3 -FU nephro reccs -no fluids at this time -avoid nephrotoxins FEN No fluids monitor lytes and replete as needed NPO Ppx Scds Transfer to Med-surge Visit type - Emergency Visit Emergency Visit: Yes ED Registration Date: 12/28/17 Care time: The patient presented to the Emergency Department on the above date and was hospitalized for further evaluation of their emergent condition. - New Patient This patient is new to me today: No - Critical Care Critical Care patient: Yes Total Critical Care Time (in minutes): 40 Critical Care Statement: The care of this patient involved high complexity decision making to prevent further life threatening deterioration of the patient 's condition and/or to evaluate & treat vital organ system(s) failure or risk of failure.
--- NOTE | 2018-01-01 15:33 | PN ---
Progress Note (short form) - Note Progress Note: Subjective: The patient was seen and examined at the bedside, she reports feeling better today. Continue Levemir Current Medications Generic Name Dose Route Start Last Admin Trade Name Pearl PRN Reason Stop Dose Admin Bisacodyl 5 mg 01/01/18 11:09 Dulcolax - PO DAILY PRN CONSTIPATION Chlorhexidine Gluconate 1 applic 12/28/17 22:00 01/02/18 06:29 Hibiclens For Decolonization - TP Not Given HS LUCY Dextrose 25 gm 12/30/17 21:53 12/31/17 06:40 D50w (Syringe) - IVPUSH 25 gm PRN PRN Administration LOW BG Heparin Sodium (Porcine) 5,000 unit 12/28/17 22:00 01/02/18 06:29 Heparin - SQ 5,000 unit TID LUCY Administration Piperacillin Sod/Tazobactam 50 mls @ 100 mls/hr 12/29/17 02:00 01/02/18 02:42 Sod 3.375 gm/ Dextrose IVPB 100 mls/hr Q8H-IV LUCY Administration Protocol Insulin Aspart 1 vial 12/31/17 11:00 01/02/18 06:34 Novolog Vial Sliding Scale - SQ 2 units ACHS LUCY Administration Protocol Insulin Detemir 15 units 01/01/18 07:00 01/02/18 06:34 Levemir Vial SQ 15 units ACBK [facility]UCY Administration Lidocaine/Aluminum/Magnesium/Simeth 5 ml 12/31/17 18:30 01/02/18 06:28 Magic Mouthwash *Sjr Formula* - MM Not Given Q6HPO [facility] Mupirocin 1 applic 12/28/17 22:00 01/01/18 21:08 Bactroban Ointment (For Decolonization) - NS 01/02/18 21:59 Not Given BID LUCY Ondansetron HCl 8 mg 12/31/17 09:40 Zofran Injection IVPUSH Q8H PRN NAUSEA AND/OR VOMITING Objective: Vital Signs Period Temp Pulse Resp BP Sys/Mendiola Pulse Ox Last 24 Hr 97.8 F-98.8 F 65-94 16-22 122-148/72-89 100-100 Physical Exam: General: NAD, A&Ox3 Lungs: CTA bilaterally Heart: RRR, S1S2 Abd: Soft, non-tender, non-distended Ext: Warm, well-perfused CBCD WBC 5.9 K/mm3 (4.0-10.0) 01/01/18 05:30 RBC 4.35 M/mm3 (3.60-5.2) 01/01/18 05:30 Hgb 11.9 GM/dL (10.7-15.3) 01/01/18 05:30 Hct 35.4 % (32.4-45.2) 01/01/18 05:30 MCV 81.5 fl (80-96) 01/01/18 05:30 MCHC 33.6 g/dl (32.0-36.0) 01/01/18 05:30 RDW 14.3 % (11.6-15.6) 01/01/18 05:30 Plt Count 81 K/MM3 (134-434) L D 01/01/18 05:30 MPV 9.8 fl (7.5-11.1) 01/01/18 05:30 CMP Sodium 150 mmol/L (136-145) H 01/01/18 05:30 Potassium 3.5 mmol/L (3.5-5.1) 01/01/18 05:30 Chloride 121 mmol/L (98-107) H 01/01/18 05:30 Carbon Dioxide 21 mmol/L (21-32) 01/01/18 05:30 Anion Gap 8 (8-16) 01/01/18 05:30 BUN 18 mg/dL (7-18) 01/01/18 05:30 Creatinine 1.3 mg/dL (0.55-1.02) H 01/01/18 05:30 Creat Clearance w eGFR 42.07 (>60) 01/01/18 05:30 Random Glucose 201 mg/dL (74-106) H 01/01/18 05:30 Calcium 8.2 mg/dL (8.5-10.1) L 01/01/18 05:30 Total Bilirubin 1.1 mg/dL (0.2-1.0) H 01/01/18 05:30 AST 21 U/L (15-37) 01/01/18 05:30 ALT 20 U/L (12-78) 01/01/18 05:30 Alkaline Phosphatase 89 U/L (45-117) D 01/01/18 05:30 Total Protein 5.2 g/dl (6.4-8.2) L 01/01/18 05:30 Albumin 2.2 g/dl (3.4-5.0) L 01/01/18 05:30 CARDIAC ENZYMES Troponin I < 0.03 ng/ml (0.00-0.06) 12/28/17 09:08 Microbiology 12/28/17 09:08 Blood - Peripheral Venous Blood Culture - Preliminary NO GROWTH OBTAINED AFTER 96 HOURS, INCUBATION TO CONTINUE FOR 1 DAYS. 12/28/17 09:08 Blood - Peripheral Venous Blood Culture - Preliminary NO GROWTH OBTAINED AFTER 96 HOURS, INCUBATION TO CONTINUE FOR 1 DAYS. 12/28/17 09:08 Urine - Urine - Catheterized Urine Culture - Final NO GROWTH OBTAINED Assessment: This is a 57 year old female with PMHx of IDDM, who presented to the ED with altered mental status Plan: 1) DKA - Resolved - Continue Levemir 15u sq am - BGM ACHS - ISS ACHS - Diabetic diet - Appreciate endocrinology consult 2) Hypernatremia - Improving - Continue to trend - Appreciate nephrology consult 3) WINTER - Cr continues to improve - 2.7->2.1->1.8->1.3 - Continue IV fluids - Kidney ultrasound: isoechoic to slightly echogenic kidneys compatible with the clinical history of renal disease without evidence of hydronephrosis or stones 4) Acute toxic metabolic encephalopathy - Resolved 5) Leukocytosis, hypothermia - On admission; hypothermia resolved, leukocytosis improving - All cultures negative to date - Continue Zosyn per ID, consider discontinuing as cultures negative - Appreciate ID cosnult 6) Thrombocytopenia - 2/2 drug vs. infection? - Continue to trend, Zosyn related? 7) F/E/N: - Diabetic diet - Monitor electrolytes 8) Prophylaxis: - Heparin 5,000u sq tid 9) Dispo: - Requires continued inpatient care CODE STATUS: FULL CODE Visit type - Emergency Visit Emergency Visit: Yes ED Registration Date: 12/28/17 Care time: The patient presented to the Emergency Department on the above date and was hospitalized for further evaluation of their emergent condition. - New Patient This patient is new to me today: No - Critical Care Critical Care patient: No
--- NOTE | 2018-01-01 16:01 | PN ---
Progress Note, Physician History of Present Illness: Pt seen and examined at bedside. She is out of bed to chair. She denies shortness of breath. - Current Medication List Current Medications: Active Medications Bisacodyl (Dulcolax -) 5 mg PO DAILY PRN PRN Reason: CONSTIPATION Chlorhexidine Gluconate (Hibiclens For Decolonization -) 1 applic TP HS [facility] Last Admin: 12/31/17 21:32 Dose: 1 applic Dextrose (D50w (Syringe) -) 25 gm IVPUSH PRN PRN PRN Reason: LOW BG Last Admin: 12/31/17 06:40 Dose: 25 gm Heparin Sodium (Porcine) (Heparin -) 5,000 unit SQ TID [facility] Last Admin: 01/01/18 14:11 Dose: 5,000 unit Piperacillin Sod/Tazobactam (Sod 3.375 gm/ Dextrose) 50 mls @ 100 mls/hr IVPB Q8H-IV [facility]; Protocol Last Admin: 01/01/18 09:57 Dose: 100 mls/hr Insulin Aspart (Novolog Vial Sliding Scale -) 1 vial SQ ACHS [facility]; Protocol Last Admin: 01/01/18 11:43 Dose: 2 units Insulin Detemir (Levemir Vial) 15 units SQ ACBK [facility] Last Admin: 01/01/18 06:12 Dose: 15 units Lidocaine/Aluminum/Magnesium/Simeth (Magic Mouthwash *Sjr Formula* -) 5 ml MM Q6HPO [facility] Last Admin: 01/01/18 12:06 Dose: Not Given Mupirocin (Bactroban Ointment (For Decolonization) -) 1 applic NS BID [facility] Stop: 01/02/18 21:59 Last Admin: 01/01/18 09:57 Dose: 1 applic Ondansetron HCl (Zofran Injection) 8 mg IVPUSH Q8H PRN PRN Reason: NAUSEA AND/OR VOMITING - Objective Vital Signs: Vital Signs Temperature 97.8 F 01/01/18 10:00 Pulse Rate 75 01/01/18 14:00 Respiratory Rate 16 01/01/18 14:00 Blood Pressure 127/83 01/01/18 14:00 O2 Sat by Pulse Oximetry (%) 100 01/01/18 09:00 Constitutional: Yes: Calm Eyes: Yes: Conjunctiva Clear HENT: Yes: Atraumatic Neck: Yes: Supple Cardiovascular: Yes: S1, S2 Respiratory: Yes: CTA Bilaterally Gastrointestinal: Yes: Soft Genitourinary: Yes: Brantley Present Musculoskeletal: Yes: WNL Edema: Yes Edema: LLE: 1+, RLE: 1+ Neurological: Yes: Oriented Psychiatric: Yes: Oriented Labs: CBC, BMP 01/01/18 05:30 01/01/18 05:30 Problem List - Problems (1) WINTER (acute kidney injury) Code(s): N17.9 - ACUTE KIDNEY FAILURE, UNSPECIFIED (2) DKA (diabetic ketoacidoses) Code(s): E13.10 - OTH DIABETES MELLITUS WITH KETOACIDOSIS WITHOUT COMA Qualifiers: Diabetes mellitus type: type 1 Diabetes mellitus complication detail: without coma Qualified Code(s): E10.10 - Type 1 diabetes mellitus with ketoacidosis without coma (3) Sepsis Code(s): A41.9 - SEPSIS, UNSPECIFIED ORGANISM Qualifiers: Sepsis type: sepsis due to unspecified organism Qualified Code(s): A41.9 - Sepsis, unspecified organism (4) Hypernatremia Code(s): E87.0 - HYPEROSMOLALITY AND HYPERNATREMIA Assessment/Plan Current Medications Generic Name Dose Route Start Last Admin Trade Name Freq PRN Reason Stop Dose Admin Bisacodyl 5 mg 01/01/18 11:09 Dulcolax - PO DAILY PRN CONSTIPATION Chlorhexidine Gluconate 1 applic 12/28/17 22:00 12/31/17 21:32 Hibiclens For Decolonization - TP 1 applic HS LUCY Administration Dextrose 25 gm 12/30/17 21:53 12/31/17 06:40 D50w (Syringe) - IVPUSH 25 gm PRN PRN Administration LOW BG Heparin Sodium (Porcine) 5,000 unit 12/28/17 22:00 01/01/18 14:11 Heparin - SQ 5,000 unit TID LUCY Administration Piperacillin Sod/Tazobactam 50 mls @ 100 mls/hr 12/29/17 02:00 01/01/18 09:57 Sod 3.375 gm/ Dextrose IVPB 100 mls/hr Q8H-IV [facility] Administration Protocol Insulin Aspart 1 vial 12/31/17 11:00 01/01/18 11:43 Novolog Vial Sliding Scale - SQ 2 units ACHS LUCY Administration Protocol Insulin Detemir 15 units 01/01/18 07:00 01/01/18 06:12 Levemir Vial SQ 15 units ACBK LUCY Administration Lidocaine/Aluminum/Magnesium/Simeth 5 ml 12/31/17 18:30 01/01/18 12:06 Magic Mouthwash *Sjr Formula* - MM Not Given Q6HPO [facility] Mupirocin 1 applic 12/28/17 22:00 01/01/18 09:57 Bactroban Ointment (For Decolonization) - NS 01/02/18 21:59 1 applic BID LUCY Administration Ondansetron HCl 8 mg 12/31/17 09:40 Zofran Injection IVPUSH Q8H PRN NAUSEA AND/OR VOMITING Laboratory Tests 12/30/17 15:50 CORTEZ M-Vamshi Pending FERMIN Screen Pending c-ANCA Pending Proteinase 3 (PR3) Pending p-ANCA Pending Atypical p-ANCA Pending Myeloperoxidase Ab Pending Double Strand DNA Ab Pending Glomerular Base Memb Ab Pending Hep Bs Antigen Pending Hep Bs Antibody Pending Hep B Core Total Ab Pending HCV Quantitation Pending Hepatitis C RNA Pending Impression 1. WINTER 2. hypernatremia 3. DKA 4. metabolic acidosis - check abg 5. DM 6. change in mental status 7. sepsis 8. leukocytosis 9. hypophosphatemia Plan - sodium is improved - can stop fluids for now - monitor sodium level - monitor blood sugar - renal function is stabilizing - follow renal workup - pt tolerating diet - discussed with ICU team - will follow Dr Vergara
--- NOTE | 2018-01-01 17:36 | EKG ---
Test Reason : Blood Pressure : / mmHG Vent. Rate : 075 BPM Atrial Rate : 075 BPM P-R Int : 144 ms QRS Dur : 078 ms QT Int : 402 ms P-R-T Axes : 052 023 009 degrees QTc Int : 448 ms NORMAL SINUS RHYTHM NORMAL ECG WHEN COMPARED WITH ECG OF 28-DEC-2017 09:06, T WAVE VARIATION VENT. RATE HAS DECREASED Confirmed by BRETT SAUL MD ([id number]) on 01/01/2018 5:36:00 PM Referred By: Nidhi RUEDA Confirmed By:BRETT SAUL MD
[2018-01-01] MEDS ORDERED: INSULIN (NOVOLOG) ASPART 100 UNITS/ML 10ML VIAL ONE (21:40)
[2018-01-02] MEDS: MAG HYDROX/ALH/SMC/DPHA/LIDO 240 ML MOUTHWASH MM SCH ×2 (02:41→06:28)
[2018-01-02] MEDS: PIPERACILLIN/TAZOB 3.375 GM 3.375 GM in DEXTROSE 5%-WATER - 50 ML IVPB SCH (02:42)
[2018-01-02] MEDS: HEPARIN NA (PORCINE) 5,000 UNITS/ML 1ML VIAL SQ SCH (06:29)
[2018-01-02] MEDS: CHLORHEXIDINE GLUCONATE 4% CLEANSER FOR DECOLONIZATION TP SCH (06:29)
[2018-01-02] MEDS: INSULIN SLIDING SCALE (NOVOLOG) 1 VIAL SQ SCH (06:34)
[2018-01-02] MEDS: INSULIN (LEVEMIR) 100 UNITS/ML UNITS SQ SCH (06:34)
[2018-01-02] MEDS ORDERED: INSULIN (NOVOLOG) ASPART 100 UNITS/ML 10ML VIAL ONE ×2 (07:09→12:22)
[2018-01-02] MEDS ORDERED: DEXTROSE 50%-WATER 25 GM/50 ML DISP.SYRIN IVPUSH PRN (07:34)
[2018-01-02] MEDS ORDERED: ONDANSETRON 4 MG/2 ML VIAL IVPUSH PRN (07:34)
[2018-01-02 07:52] LABS: HEMATOCRIT 34.1 % (32.4-45.2); HEMOGLOBIN 11.6 GM/dL (10.7-15.3); MCH 27.9 pg (25.7-33.7); MEAN CELL VOLUME 82.2 fl (80-96); MEAN PLT VOLUME 9.7 fl (7.5-11.1); PLATELET COUNT 82 K/MM3 (134-434); RBC 4.15 M/mm3 (3.60-5.2); RDW 14.1 % (11.6-15.6)
[2018-01-02 08:24] LABS: ALBUMIN 2.3 g/dl (3.4-5.0); ANION GAP 7 (8-16); BILIRUBIN,TOTAL 0.9 mg/dL (0.2-1.0); BLOOD UREA NITROGEN 17 mg/dL (7-18); CALCIUM 8.3 mg/dL (8.5-10.1); CHLORIDE 116 mmol/L (98-107); CO2 24 mmol/L (21-32); CREATININE 1.2 mg/dL (0.55-1.02); GLUCOSE,RANDOM 237 mg/dL (74-106); MAGNESIUM 2.1 mg/dL (1.8-2.4); PHOSPHOROUS 3.6 mg/dL (2.5-4.9); POTASSIUM 3.9 mmol/L (3.5-5.1); SGOT/AST 19 U/L (15-37); SGPT/ALT 20 U/L (12-78); SODIUM 147 mmol/L (136-145); TOT PROT 5.3 g/dl (6.4-8.2)
[2018-01-02 08:25] LABS: ALK PHOS 95 U/L (45-117)
[2018-01-02] MEDS ORDERED: PIPERACILLIN/TAZOB 3.375 GM 3.375 GM in DEXTROSE 5%-WATER - 50 ML IVPB SCH (10:00)
[2018-01-02] MEDS ORDERED: MUPIROCIN 2% TOPICAL OINTMENT FOR DECOLONIZATION NS SCH (10:00)
--- NOTE | 2018-01-02 10:18 | PN ---
Progress Note (short form) - Note Progress Note: Overall better. No acute events overnight. No CP or SOB. OBJECTIVE: Intake & Output 12/30/17 12/31/17 01/01/18 01/02/18 23:59 23:59 23:59 23:59 Intake Total 2960 4152 2080 Output Total 3000 7744 632 0713 Balance -40 2502 1530 -1500 Weight 144 lb 8 oz 146 lb 1.6 oz 145 lb 3.2 oz Last Vital Signs Temp Pulse Resp BP Pulse Ox 98.3 F 94 H 22 137/74 100 01/02/18 06:45 01/02/18 06:45 01/02/18 06:45 01/02/18 06:45 01/01/18 21:00 Active Medications Bisacodyl (Dulcolax -) 5 mg PO DAILY PRN PRN Reason: CONSTIPATION Chlorhexidine Gluconate (Hibiclens For Decolonization -) 1 applic TP HS [facility] Dextrose (D50w (Syringe) -) 25 gm IVPUSH PRN PRN PRN Reason: LOW BG Heparin Sodium (Porcine) (Heparin -) 5,000 unit SQ TID [facility] Piperacillin Sod/Tazobactam (Sod 3.375 gm/ Dextrose) 50 mls @ 100 mls/hr IVPB Q8H-IV [facility]; Protocol Insulin Aspart (Novolog Vial Sliding Scale -) 1 vial SQ ACHS [facility]; Protocol Insulin Detemir (Levemir Vial) 15 units SQ ACBK [facility] Lidocaine/Aluminum/Magnesium/Simeth (Magic Mouthwash *Sjr Formula* -) 5 ml MM Q6HPO [facility] Ondansetron HCl (Zofran Injection) 8 mg IVPUSH Q8H PRN PRN Reason: NAUSEA AND/OR VOMITING Gen: NAD Heart: RRR Lung: Clear Abd: soft, nontender Ext: no edema Laboratory Results - last 24 hr 01/01/18 01/02/18 01/02/18 21:38 06:33 06:50 WBC 4.0 RBC 4.15 Hgb 11.6 Hct 34.1 MCV 82.2 MCH 27.9 MCHC 34.0 RDW 14.1 Plt Count 82 L MPV 9.7 Sodium Potassium Chloride Carbon Dioxide Anion Gap BUN Creatinine Creat Clearance w eGFR POC Glucometer 242 206 Random Glucose Calcium Phosphorus Magnesium Total Bilirubin AST ALT Alkaline Phosphatase Total Protein Albumin 01/02/18 06:50 WBC RBC Hgb Hct MCV MCH MCHC RDW Plt Count MPV Sodium 147 H Potassium 3.9 Chloride 116 H Carbon Dioxide 24 Anion Gap 7 L BUN 17 Creatinine 1.2 H Creat Clearance w eGFR 46.14 POC Glucometer Random Glucose 237 H Calcium 8.3 L Phosphorus 3.6 Magnesium 2.1 Total Bilirubin 0.9 AST 19 ALT 20 Alkaline Phosphatase 95 Total Protein 5.3 L Albumin 2.3 L ASSESSMENT AND PLAN: Diabetic Ketoacidosis Acute Kidney Injury Metabolic Acidosis Hypernatremia - glucose control per Endocrine - ABX per ID - VTE prophylaxis Dr Freeman
[2018-01-02] MEDS ORDERED: DEXTROSE 5%-WATER - 50 ML IVPB ONE (10:24)
[2018-01-02] MEDS ORDERED: PT OWN MED DRAWER 7, Y5N ONE (10:24)
[2018-01-02] MEDS ORDERED: PIPERACILLIN/TAZOBACTAM 3.375 GM VIAL IVPB ONE (10:24)
[2018-01-02] MEDS: POTASSIUM CHLORIDE 20 MEQ in DEXTROSE 5%-WATER - 1,000 ML IVPB SCH (10:53)
[2018-01-02] MEDS ORDERED: INSULIN SLIDING SCALE (NOVOLOG) 1 VIAL SQ SCH (11:00)
[2018-01-02] MEDS ORDERED: MAG HYDROX/ALH/SMC/DPHA/LIDO 240 ML MOUTHWASH MM SCH (12:00)
--- NOTE | 2018-01-02 12:23 | DS ---
Physical Examination Vital Signs: Vital Signs Temperature 98.5 F 01/02/18 10:00 Pulse Rate 94 H 01/02/18 10:00 Respiratory Rate 20 01/02/18 10:00 Blood Pressure 143/86 01/02/18 10:00 O2 Sat by Pulse Oximetry (%) 100 01/01/18 21:00 Labs: CBC, BMP 01/02/18 06:50 01/02/18 06:50 Discharge Summary Reason For Visit: DIABETIC KETOACIDOSIS; SEPSIS Current Active Problems WINTER (acute kidney injury) (Acute) DKA (diabetic ketoacidoses) (Acute) Sepsis (Acute) Condition: Improved - Instructions Referrals: Ezio Vergara MD [Staff Physician] - Keny Sesay MD [Staff Physician] - (Please follow-up with endocrinology within 2-3 days. You MUST record all of your ) Disposition: HOME - Home Medications Comprehensive Discharge Medication List: Ambulatory Orders Asea Redox 60 ml PO BID 12/30/17 Hansen-3 12/30/17 Opti-Metals Detox 1 dropper SL BID 12/30/17 Virex 1 dropper SL BID 12/30/17 Insulin (Levemir) [Levemir Vial] 15 units SQ ACBK #100 ml 01/02/18 Insulin Sliding Scale [Novolog Vial Sliding Scale -] 1 vial SQ ACHS #100 units 01/02/18 - Discharge Referral Referred to [facility] No
[2018-01-02] MEDS ORDERED: HEPARIN NA (PORCINE) 5,000 UNITS/ML 1ML VIAL SQ SCH (14:00)
[2018-01-02 14:14] LABS: ANION GAP 9 (8-16); BLOOD UREA NITROGEN 19 mg/dL (7-18); CALCIUM 8.5 mg/dL (8.5-10.1); CHLORIDE 112 mmol/L (98-107); CO2 22 mmol/L (21-32); CREATININE 1.2 mg/dL (0.55-1.02); GLUCOSE,RANDOM 244 mg/dL (74-106); SODIUM 143 mmol/L (136-145)
[2018-01-02 14:24] LABS: POTASSIUM 3.7 mmol/L (3.5-5.1)
--- NOTE | 2018-01-02 14:29 | PN ---
Progress Note, Physician History of Present Illness: stable no new issues doing well - Current Medication List Current Medications: Active Medications Bisacodyl (Dulcolax -) 5 mg PO DAILY PRN PRN Reason: CONSTIPATION Chlorhexidine Gluconate (Hibiclens For Decolonization -) 1 applic TP HS [facility] Dextrose (D50w (Syringe) -) 25 gm IVPUSH PRN PRN PRN Reason: LOW BG Heparin Sodium (Porcine) (Heparin -) 5,000 unit SQ TID [facility] Insulin Aspart (Novolog Vial Sliding Scale -) 1 vial SQ ACHS [facility]; Protocol Last Admin: 01/02/18 12:23 Dose: 8 units Insulin Detemir (Levemir Vial) 15 units SQ ACBK [facility] Lidocaine/Aluminum/Magnesium/Simeth (Magic Mouthwash *Sjr Formula* -) 5 ml MM Q6HPO [facility] Last Admin: 01/02/18 12:44 Dose: Not Given Ondansetron HCl (Zofran Injection) 8 mg IVPUSH Q8H PRN PRN Reason: NAUSEA AND/OR VOMITING - Objective Vital Signs: Vital Signs Temperature 98.5 F 01/02/18 10:00 Pulse Rate 94 H 01/02/18 10:00 Respiratory Rate 20 01/02/18 10:00 Blood Pressure 143/86 01/02/18 10:00 O2 Sat by Pulse Oximetry (%) 98 01/02/18 09:00 Constitutional: Yes: No Distress, Calm Cardiovascular: Yes: Regular Rate and Rhythm Respiratory: Yes: Regular, CTA Bilaterally Gastrointestinal: Yes: Normal Bowel Sounds, Soft Musculoskeletal: Yes: WNL Extremities: Yes: WNL Neurological: Yes: Alert, Oriented Psychiatric: Yes: Alert, Oriented Labs: CBC, BMP 01/02/18 06:50 01/02/18 13:25 Assessment/Plan Problem List - Problems (1) DKA (diabetic ketoacidoses) (2) Sepsis 3 ams electrolyte abn lactic acidosis dehydration leukocytosis plan stop all abx monitor without abx patient stable improving rest as per the team
[2018-01-02 14:48] VITALS: BP 151/74; PULSE 107; TEMP 98.7
--- NOTE | 2018-01-02 15:17 | PN ---
Progress Note, Physician History of Present Illness: Pt seen and examined at bedside. She is awake and alert. She denies shortness of breath. - Current Medication List Current Medications: Active Medications Bisacodyl (Dulcolax -) 5 mg PO DAILY PRN PRN Reason: CONSTIPATION Chlorhexidine Gluconate (Hibiclens For Decolonization -) 1 applic TP HS [facility] Dextrose (D50w (Syringe) -) 25 gm IVPUSH PRN PRN PRN Reason: LOW BG Heparin Sodium (Porcine) (Heparin -) 5,000 unit SQ TID [facility] Last Admin: 01/02/18 14:43 Dose: 5,000 unit Insulin Aspart (Novolog Vial Sliding Scale -) 1 vial SQ ACHS [facility]; Protocol Last Admin: 01/02/18 12:23 Dose: 8 units Insulin Detemir (Levemir Vial) 15 units SQ ACBK [facility] Lidocaine/Aluminum/Magnesium/Simeth (Magic Mouthwash *Sjr Formula* -) 5 ml MM Q6HPO [facility] Last Admin: 01/02/18 12:44 Dose: Not Given Ondansetron HCl (Zofran Injection) 8 mg IVPUSH Q8H PRN PRN Reason: NAUSEA AND/OR VOMITING - Objective Vital Signs: Vital Signs Temperature 98.7 F 01/02/18 14:47 Pulse Rate 107 H 01/02/18 14:47 Respiratory Rate 18 01/02/18 14:47 Blood Pressure 151/74 01/02/18 14:47 O2 Sat by Pulse Oximetry (%) 98 01/02/18 09:00 Constitutional: Yes: Calm Eyes: Yes: Conjunctiva Clear HENT: Yes: Atraumatic Neck: Yes: Supple Cardiovascular: Yes: S1, S2 Respiratory: Yes: CTA Bilaterally Gastrointestinal: Yes: WNL Genitourinary: Yes: WNL Musculoskeletal: Yes: WNL Edema: Yes Edema: LLE: Trace, RLE: Trace Neurological: Yes: Oriented Psychiatric: Yes: Oriented Labs: CBC, BMP 01/02/18 06:50 01/02/18 13:25 Problem List - Problems (1) WINTER (acute kidney injury) Code(s): N17.9 - ACUTE KIDNEY FAILURE, UNSPECIFIED (2) DKA (diabetic ketoacidoses) Code(s): E13.10 - OTH DIABETES MELLITUS WITH KETOACIDOSIS WITHOUT COMA Qualifiers: Diabetes mellitus type: type 1 Diabetes mellitus complication detail: without coma Qualified Code(s): E10.10 - Type 1 diabetes mellitus with ketoacidosis without coma (3) Sepsis Code(s): A41.9 - SEPSIS, UNSPECIFIED ORGANISM Qualifiers: Sepsis type: sepsis due to unspecified organism Qualified Code(s): A41.9 - Sepsis, unspecified organism (4) Hypernatremia Code(s): E87.0 - HYPEROSMOLALITY AND HYPERNATREMIA Assessment/Plan Current Medications Generic Name Dose Route Start Last Admin Trade Name Freq PRN Reason Stop Dose Admin Bisacodyl 5 mg 01/01/18 11:09 Dulcolax - PO DAILY PRN CONSTIPATION Chlorhexidine Gluconate 1 applic 01/02/18 22:00 Hibiclens For Decolonization - TP HS [facility] Dextrose 25 gm 01/02/18 07:34 D50w (Syringe) - IVPUSH PRN PRN LOW BG Heparin Sodium (Porcine) 5,000 unit 01/02/18 14:00 01/02/18 14:43 Heparin - SQ 5,000 unit TID [facility] Administration Insulin Aspart 1 vial 01/02/18 11:00 01/02/18 12:23 Novolog Vial Sliding Scale - SQ 8 units ACHS [facility] Administration Protocol Insulin Detemir 15 units 01/03/18 07:00 Levemir Vial SQ ACBK [facility] Lidocaine/Aluminum/Magnesium/Simeth 5 ml 01/02/18 12:00 01/02/18 12:44 Magic Mouthwash *Sjr Formula* - MM Not Given Q6HPO [facility] Ondansetron HCl 8 mg 01/02/18 07:34 Zofran Injection IVPUSH Q8H PRN NAUSEA AND/OR VOMITING Laboratory Tests 12/30/17 15:50 CORTEZ M-Vamshi Pending FERMIN Screen Pending c-ANCA Pending Proteinase 3 (PR3) Pending p-ANCA Pending Atypical p-ANCA Pending Myeloperoxidase Ab Pending Double Strand DNA Ab Pending Glomerular Base Memb Ab Pending Hepatitis A Ab Total Pending Hep Bs Antigen Pending Hep Bs Antibody Pending Hep B Core Total Ab Pending HCV Quantitation Pending Hepatitis C RNA Pending Impression 1. WINTER 2. hypernatremia 3. DKA 4. metabolic acidosis - check abg 5. DM 6. change in mental status 7. sepsis 8. leukocytosis 9. hypophosphatemia Plan - renal function improved - serologic workup is pending - sodium improved - will need follow up for review of her labs, this was discussed with the patient and her daughter at bedside. - recommend avoiding non FDA approved over the counter supplements without them being reviewed by her pmd - will follow Dr Vergara
[2018-01-02 16:06] VITALS: BMI 22.7
[2018-01-02] MEDS ORDERED: CHLORHEXIDINE GLUCONATE 4% CLEANSER FOR DECOLONIZATION TP SCH (22:00)
[2018-01-03] MEDS ORDERED: INSULIN (LEVEMIR) 100 UNITS/ML UNITS SQ SCH (07:00)
[2018-01-03 14:15] LABS: ANTIGLOMERULAR BASEMENT MEN.AB 4 units (0-20)
[2018-01-05 00:07] LABS: HBSAG SCREEN Negative (Negative); HEP A AB, IGM Negative (Negative); HEP B CORE AB, TOT Positive (Negative)
[2018-01-05 14:12] LABS: ATYPICAL pANCA <1:20 titer (Neg:<1:20); C-ANCA <1:20 titer (Neg:<1:20); P-ANCA <1:20 titer (Neg:<1:20); PROTEINASE-3 ANTIBODY <3.5 U/mL (0.0-3.5)
== END 2018-01-02 16:59 | disposition home or self-care (01) | DRG 871 ==
LOC: FER 08:43 → JICU 17:15 → J8W 01-01 18:33
PROVIDERS: ADMIT Hospitalist; ATTEND Registered Nurse
DX: A41.9 Sepsis, unspecified organism (principal); E10.10 Type 1 diabetes mellitus with ketoacidosis without coma; G93.41 Metabolic encephalopathy; N17.9 Acute kidney failure, unspecified; E87.0 Hyperosmolality and hypernatremia; E87.2 Acidosis; R68.0 Hypothermia, not associated with low environmental temperature; D72.829 Elevated white blood cell count, unspecified; R00.0 Tachycardia, unspecified; E83.39 Other disorders of phosphorus metabolism; D69.6 Thrombocytopenia, unspecified; E86.0 Dehydration
CPT/HCPCS: 36415; 70450-TC; 71045-TC-FY; 76775-TC; 76856-TC; 80048; 80053; 80061; 81003; 81015; 82009; 82436; 82570; 82947; 82962; 83036; 83516; 83520; 83605; 83721; 83735; 84100; 84133; 84155; 84165; 84300; 84484; 85025; 85027; 86038; 86225; 86256; 86704; 86706; 86708; 87040; 87086; 87205; 87340; 87522; 93005; 93010; 99285-25; J1644; J7030

== ENCOUNTER 2019-01-09 07:34 | Day surgery (SDC) | payer BC ==
[2019-01-01 17:56] VITALS: BMI 23.2
[2019-01-09] MEDS: TROPICAMIDE 1% OPHTH SOLN 15 ML BOTTLE ONE ×3 (08:05→08:15)
[2019-01-09] MEDS: PHENYLEPHRINE 2.5% OPHTH SOLN 15 ML BOTTLE ONE ×3 (08:05→08:15)
[2019-01-09] MEDS: CIPROFLOXACIN 0.3% EYE DROPS 5 ML BOTTLE ONE ×3 (08:05→08:15)
[2019-01-09] MEDS: CYCLOPENTOLATE 2% OPHTH SOLN 2 ML BOTTLE ONE ×3 (08:05→08:15)
[2019-01-09] MEDS ORDERED: MIDAZOLAM HCL 2 MG/2 ML SINGLE DOSE VIAL ONE (09:13)
[2019-01-09] MEDS ORDERED: NEO/POLYMYX B SULF/DEXAMETH OPHTHALMIC 5ML BOTTLE ONE (09:13)
[2019-01-09] MEDS ORDERED: BSS (NA/CA/MG/K) BALANCED SALT SOLUTION OPHTH SOLN 15 ML BOTTLE ONE (09:13)
[2019-01-09] MEDS ORDERED: LIDOCAINE 1% P/F 10 MG/ML VIAL ONE (09:13)
[2019-01-09] MEDS ORDERED: TETRACAINE 0.5% OPHTH SOLN 2 ML BOTTLE ONE (09:13)
[2019-01-09] MEDS ORDERED: CARBACHOL 0.01% INTRA-OCULAR 1.5 ML VIAL ONE (09:13)
[2019-01-09] MEDS ORDERED: DEXAMETHASONE SOD PHOSPHATE 4 MG/1 ML VIAL ONE (09:26)
[2019-01-09] MEDS ORDERED: ONDANSETRON 4 MG/2 ML VIAL ONE (09:26)
--- NOTE | 2019-01-09 10:10 | OP ---
DATE OF OPERATION: 01/09/2019 OPERATIVE PROCEDURE: Lens Phacoemulsification with Posterior Chamber Intraocular Lens Placement, Right Eye PREOPERATIVE DIAGNOSIS: Visually Significant Cataract of Right Eye POSTOPERATIVE DIAGNOSIS: Visually Significant Cataract of Right Eye SURGEON: Keith Xie M.D. ANESTHESIA: MAC ANESTHESIOLOGIST: PROCEDURE: The patient was brought to the operating room and placed under monitored anesthesia care by Anesthesia. A drop of Tetracaine was then placed over the right eye. The patient was then prepped and draped in the usual sterile manner. A speculum was then placed over the right eye. The eye was then well irrigated with copious amounts of BSS (balanced salt solution). The operating microscope was then moved into position. A paracentesis was performed using a 15 degree blade. At this point 0.5 mL of 1% preservative free-lidocaine was injected into the anterior chamber. Amvisc plus was then injected into the anterior chamber. A clear corneal incision was then formed using a 2.2 mm keratome. A capsulorrhexis was then performed in a continuous circular fashion beginning with a cystotome completed with an Utratas forceps. Hydrodissection was then performed using BSS on a cannula. The phaco probe was then introduced through the corneal wound and the cataract was removed using the phaco chop technique. Approximately 3 seconds of absolute phaco time was used. The remaining cortex was then removed using irrigation and aspiration with an I/A probe. The capsule was then filled with regular Amvisc and the capsule was noted to be intact. A previously selected foldable posterior chamber intraocular lens was then injected into the capsule through the corneal wound using a lens injector. It was then dialed into position using a Sinskey hook. The Amvisc was then removed using irrigation and aspiration. Miostat was then injected through the paracentesis to constrict the pupil. The paracentesis and corneal wound were then hydrated and noted to be water tight. A drop of Maxitrol was then placed over the eye. The speculum was removed and clear shield was taped over the eye. The patient tolerated the procedure well and there were no surgical complications. The patient was asked to follow up in my office the next day. KEITH XIE M.D. [id number]
[2019-01-09 11:13] VITALS: PULSE 74; TEMP 98.7
[2019-01-09 11:14] VITALS: BP 148/88
== END 2019-01-09 10:30 | disposition home or self-care (01) ==
LOC: FASU 07:34
PROVIDERS: ATTEND Ophthalmology
PROC: 08RJ3JZ Replacement of Right Lens with Synthetic Substitute, Percutaneous Approach (ICD-10-PCS; principal; 2019-01-09 09:30)
DX: H26.8 Other specified cataract (principal)
CPT/HCPCS: 82962

== ENCOUNTER 2019-02-27 07:14 | Day surgery (SDC) | payer BC ==
[2019-02-21 12:23] VITALS: BMI 24.2
[2019-02-27] MEDS ORDERED: CARBACHOL 0.01% INTRA-OCULAR 1.5 ML VIAL ONE (07:24)
[2019-02-27] MEDS ORDERED: BSS (NA/CA/MG/K) BALANCED SALT SOLUTION OPHTH SOLN 15 ML BOTTLE ONE (07:24)
[2019-02-27] MEDS ORDERED: TETRACAINE 0.5% OPHTH SOLN 2 ML BOTTLE ONE (07:24)
[2019-02-27] MEDS ORDERED: LIDOCAINE 1% P/F 10 MG/ML VIAL ONE (07:24)
[2019-02-27] MEDS ORDERED: EPINEPHrine/PF 1 MG/1 ML (1:1,000) AMPULE ONE (07:25)
[2019-02-27] MEDS ORDERED: NEO/POLYMYX B SULF/DEXAMETH OPHTHALMIC 5ML BOTTLE ONE (07:25)
[2019-02-27] MEDS: PHENYLEPHRINE 2.5% OPHTH SOLN 15 ML BOTTLE ONE ×3 (07:45→07:55)
[2019-02-27] MEDS: CIPROFLOXACIN 0.3% EYE DROPS 5 ML BOTTLE ONE ×3 (07:45→07:55)
[2019-02-27] MEDS: CYCLOPENTOLATE 2% OPHTH SOLN 2 ML BOTTLE ONE ×3 (07:45→07:55)
[2019-02-27] MEDS: TROPICAMIDE 1% OPHTH SOLN 15 ML BOTTLE ONE ×3 (07:45→07:55)
[2019-02-27] MEDS ORDERED: MIDAZOLAM HCL 2 MG/2 ML SINGLE DOSE VIAL ONE (08:07)
[2019-02-27 09:15] VITALS: TEMP 98.6
[2019-02-27 09:37] VITALS: BP 145/84; PULSE 68
--- NOTE | 2019-02-27 21:33 | OP ---
DATE OF OPERATION: 02/27/2019 OPERATIVE PROCEDURE: Lens Phacoemulsification with Posterior Chamber Intraocular Lens Placement Left Eye PREOPERATIVE DIAGNOSIS: Visually Significant Cataract of Left Eye POSTOPERATIVE DIAGNOSIS: Visually Significant Cataract of Left Eye SURGEON: Keith Xie MD ANESTHESIA: MAC ANESTHESIOLOGIST: PROCEDURE: The patient was brought to the operating room and placed under monitored anesthesia care by anesthesia. A drop of Tetracaine was then placed over the left eye. The patient was then prepped and draped in the usual sterile manner. A speculum was then placed over the left eye. The eye was then well irrigated with copious amounts of BSS (balanced salt solution). The operating microscope was then moved into position. A paracentesis was performed using a 15-degree blade. At this point 0.5 mL of 1% preservative-free lidocaine was injected into the anterior chamber. Amvisc plus was then injected into the anterior chamber. A clear corneal incision was then formed using a 2.2-mm keratome. A capsulorrhexis was then performed in a continuous circular fashion beginning with a cystotome, completed with an Utratas forceps. Hydrodissection was then performed using BSS on a cannula. The phaco probe was then introduced through the corneal wound and the cataract was removed using the phaco chop technique. Approximately 3 seconds of absolute phaco time was used. The remaining cortex was then removed using irrigation and aspiration with an I/A probe. The capsule was then filled with regular Amvisc and the capsule was noted to be intact. A previously selected foldable posterior chamber intraocular lens was then injected into the capsule through the corneal wound using a lens injector. It was then dialed into position using a Sinskey hook. The Amvisc was then removed using irrigation and aspiration. Miostat was then injected through the paracentesis to constrict the pupil. The paracentesis and corneal wound were then hydrated and noted to be watertight. A drop of Maxitrol was then placed over the eye. The speculum was removed and clear shield was taped over the eye. The patient tolerated the procedure well, and there were no surgical complications. The patient was asked to follow up in my office the next day. KEITH XIE M.D. [id number]
== END 2019-02-27 09:35 | disposition home or self-care (01) ==
LOC: FASU 07:14
PROVIDERS: ATTEND Ophthalmology
PROC: 08RK3JZ Replacement of Left Lens with Synthetic Substitute, Percutaneous Approach (ICD-10-PCS; principal; 2019-02-27 08:41)
DX: H26.8 Other specified cataract (principal)
CPT/HCPCS: 82962